=== PATIENT | male | born 1940 | race Caucasian/White ===

== ENCOUNTER 2017-12-31 20:34 | Emergency (ER) | payer MEDICARE, SELFPAY ==
[2017-12-31 20:35] VITALS: BP 144/85; PULSE 80; RESP 20; TEMP 36.7; O2SAT 98; BMI 25.8
[2017-12-31 21:35] LABS: Absolute Lymphocyte Count 1.52 X10^3/ul (0.83-4.51); Absolute Neutrophil Count 12.1 X10^3/uL (2.0-7.7); Basophil# 0.02 X10^3/uL; Basophil% 0.1 % (0-1); Differential Indicated SCAN CRITERIA MET; Eosinophil# 0.09 X10^3/uL; Eosinophils% 0.6 % (0-5); Hematocrit 36.2 % (40-54); Hemoglobin 12.1 g/dl (13.0-16.5); Lymphocyte # 1.52 X10^3/ul (4.0); Lymphocyte % 9.9 % (19-41); Mean Corp Hgb Conc 33.4 g/gl (32-36); Mean Corpuscular Hgb 30.8 pg (27.0-32.0); Mean Corpuscular Volume 92.1 fL (80-94); Mean Platelet Vol. 10.4 fl (6.2-12.0); Monocyte# 1.66 X10^3/uL; Monocyte% 10.8 % (0-10); Neutrophil % 78.3 % (47-70); POSITIVE COUNT NO; POSITIVE DIFFERENTIAL YES; POSITIVE MORPHOLOGY NO; Platelet Count 227 K/mm3 (150-450); RBC Distribution Width CV 14.4 % (11.6-14.6); RBC Distribution Width SD 47.7 fl (35.1-43.9); Red Blood Count 3.93 M/mm3 (4.6-6.2); White Blood Count 15.4 K/mm3 (4.4-11.0)
[2017-12-31 21:49] LABS: International Normalized Ratio 1.2
[2017-12-31] MEDS: 0.9% Normal Saline 1,000 ML 500 ML IV (21:49)
[2017-12-31 21:50] LABS: Partial Thromboplast Time 37.7 Seconds (24.1-36.2)
--- NOTE | 2017-12-31 21:50 | CT_ITS ---
STUDY: CT ABDOMEN AND PELVIS WITHOUT CONTRAST REASON FOR EXAM: Male, 77 years old. Blood in catheter after catheter change RADIATION DOSAGE (If Supplied By Facility): CTDIvol = ( 16.17 ) mGy, DLP = ( 779.70 ) mGycm TECHNIQUE: Transaxial images were obtained from the dome of the diaphragm to the symphysis pubis without oral contrast, and without intravenous contrast. Sagittal and coronal images were reconstructed. Individualized dose optimization techniques were used for this CT. COMPARISON: May 29, 2017. FINDINGS: The visualized lung bases are hyperaerated with interstitial prominence. The visualized portions of the heart are within normal limits. Slightly lobulated contour of the liver. Probable 9 mm hepatic cyst. Cholelithiasis. No significant dilatation of the extrahepatic biliary system. Granulomatous calcifications in the liver and spleen. Normal pancreas. Normal bilateral adrenal glands. Hydronephrosis of the right kidney right hydroureter. Mild right perinephric stranding. No obstructive stone is seen.. Interval removal of right ureteral stent since the previous study. No visualization of the left kidney. Stable hiatal hernia. Normal small intestine. Diverticulosis of the colon. Colonic fecal retention. The appendix is visualized and appears normal. Calcified abdominal aorta. Normal inferior vena cava. Normal retroperitoneum. Distended urinary bladder with intraluminal gas. Prominent prostate measuring 5.1 x 5.5 cm . Focal gas droplet within the prostate may be in the prostatic urethra. There is a partially imaged possible fluid collection and gas at the base of the penis. This requires further evaluation. Normal abdominal wall. Degenerative vertebral changes. CT/Abdomen/Pelvis without Cont IMPRESSION: Probable hepatic cyst. Cholelithiasis. Hiatal hernia. Colonic diverticulosis. Colonic fecal retention. Gas in the urinary bladder. Right hydronephrosis and hydroureter with no obstructive stone. Left nephrectomy. Study prominent prostate. Partially imaged possible fluid collection and gas at the base of the penis requiring further evaluation. Electronically Signed: Ever Ma DO at 22:55 EST Tel [phone], Service support ,
[2017-12-31 22:00] LABS: Anisocytosis RARE; Macrocytosis RARE; Platelet Estimate ADEQUATE (ADEQ)
[2017-12-31 22:22] LABS: Anion Gap 7 (5-15); BUN 24 mg/dL (7-18); BUN/Creat Ratio 17.3 RATIO (10-20); Calcium,Total 8.4 mg/dL (8.5-10.1); Chloride 103 mmol/L (98-107); Creatinine, Serum 1.39 mg/dL (0.70-1.30); EST Glomerular Filtration Rate 53 mL/min (>60); Est Glom Filt Rate - Afr Amer 64 mL/min (>60); Estimated Creatinine Clearance 45.95 ml/min; Glucose 74 mg/dL (74-106); Sodium Level 135 mmol/L (136-145)
[2017-12-31 22:46] LABS: Bacteria 0 SEEN /hpf (None Seen); Mucous, Urine 0 SEEN /hpf (<or=2+); Squamous Epithelial Cells - UA 0 SEEN /hpf (0-5)
--- NOTE | 2017-12-31 22:48 | ED.RN ---
JAXON SABILLON,RN, BLADDER SCANNED PT FOR 860CC OF URINE. THIS NURSE THEN DEFLATED 30CC BALLOON AND JAXON ADVANCED URINARY CATHETER AND BALLOON WAS REINFLATED WITH IMMEDIATE RETURN OF DARK RED URINE WITH ONE THIN CLOT NOTED. PT IMMEDIATELY FELT RELIEF, 880CC OF DARK RED URINE AND PT REPORTED NO PAIN AT THIS TIME. DR. SYED INFORMED OF SAME.
[2017-12-31 22:55] LABS: Glucose, Dipstick Normal (Normal); Ketone-Dipstick Negative (Negative); Leukocyte Esterase-Dipstick 500 /ul (Negative); Nitrite-Dipstick Negative (Negative); Occult Blood-Urine 250 /ul (Negative); Protein-Dipstick 100 mg/dl (Negative); Urine Bilirubin Dipstick Negative (Negative); Urine Clarity Sl. Cloudy (Clear); Urine Urobilinogen Normal (Normal)
[2017-12-31 23:00] VITALS: BP 122/77; PULSE 79; RESP 16; O2SAT 96
[2017-12-31 23:03] LABS: Color, Urine SEE COMMENT BELOW (Yellow)
[2017-12-31 23:04] LABS: Red Blood Cells-Urine 50-100 SEEN /hpf (0-5); White Blood Cells 5-10 SEEN /hpf (0-5)
--- NOTE | 2017-12-31 23:45 | ED.VISSUMM ---
- ER Visit Summary Date of Service: 12/31/17 Chief Complaint: Bladder pain History of Present Illness: The patient is a 77 M with a history of a solitary right kidney and a chronic indwelling Flores catheter. Presents today for pain and bleeding from his catheter. His catheter was changed today by home nurse. He noted pain immediately on placement of the catheter. He has been passing a small amount of blood, but not very much urine. He complains of increasing suprapubic pain. Denies any fever or systemic symptoms. Denies any history of blood thinners. Physical Examination: Vital signs afebrile and otherwise unremarkable. Patient appears uncomfortable but not toxic or in distress. Suprapubic area is tender to palpation. He does have some bleeding noted at the urethral meatus. There is a small amount of bright red blood in the catheter bag and it is otherwise pretty much empty. Test Results: Urinalysis showed blood but no obvious sign of infection. White count 15.4. Heme globin 12.1. Sodium 135, BUN 24, creatinine 1.39. INR 1.2 and PTT 37.7. Culture is pending. CT showed a hepatic cyst, hiatal hernia, cholelithiasis, diverticulosis, gas in the bladder, right hydronephrosis and hydroureter without stone, prominent prostate, and fluid and gas at the base of the penis. Emergency Department Course and Treatment: I was initially concerned that the patient may have an obstruction secondary to a clot. This could have been secondary to traumatic placement of the catheter. I did check labs, urine, and urine culture. I asked the nurse to irrigate the catheter. The nurse flushed and some saline, but did not get a return. He had continued pain. I was concerned for either a large clot or other traumatic complication. CT was ordered. This showed the findings as listed above and fluid/gas at the base of the penis. I believe that the balloon was in the urethra. The nurse was able to deflate the balloon and advanced the catheter. She did get a return of 860 mL's of urine. She inflated the balloon. The patient was much more comfortable. Urine is draining freely without large amounts of bleeding. I did discuss the imaging results and the course with Dr. Cunha was covering for Dr. Swenson. Cultures pending. Patient will be placed on a 1 day course of Keflex. Return for any new or worsening symptoms. No further orders. Treatment Plan: As above Disposition: Discharged Impression: 1. Attention to Flores catheter This note was generated with [employer] dictation software. It may contain incorrect words, spelling, and punctuation that were not noted in review of the chart prior to signing ED Disposition - Plan for ED Patient: Chief Complaint: Flores C/O Referrals: Sherwin Jorgensen MD [Primary Care Provider] -
[2017-12-31] MEDS: Cephalexin 250 MG Capsule 500 MG PO (23:50)
--- NOTE | 2017-12-31 23:50 | ED.DEP ---
ED Disposition - Plan for ED Patient: Chief Complaint: Flores C/O Instructions: Discharge Instructions: Caring for Your Indwelling Urinary Catheter Prescriptions: Cephalexin [Keflex] 500 mg PO Q6 1 Days #4 cap Additional Instructions: Follow up with Dr. Swenson
[2018-01-01 00:48] VITALS: BP 121/87; PULSE 69; RESP 16; O2SAT 97
[2018-01-06 10:51] LABS: Pathologist Review Reviewed
== END 2018-01-01 00:50 | disposition home or self-care (01) ==
PROVIDERS: Emergency Provider Emergency Medicine; Family Provider Internal Medicine; PCP Internal Medicine
DX: T83.83XA Hemorrhage due to genitourinary prosthetic devices, implants and grafts, initial encounter (principal); T83.84XA Pain due to genitourinary prosthetic devices, implants and grafts, initial encounter; R31.9 Hematuria, unspecified; Q60.0 Renal agenesis, unilateral; N13.30 Unspecified hydronephrosis; K76.89 Other specified diseases of liver; K44.9 Diaphragmatic hernia without obstruction or gangrene; K80.20 Calculus of gallbladder without cholecystitis without obstruction; K57.90 Diverticulosis of intestine, part unspecified, without perforation or abscess without bleeding; Z79.899 Other long term (current) drug therapy; Z87.440 Personal history of urinary (tract) infections
CPT/HCPCS: 74176; 80048; 81001; 85025; 85610; 85730; 87077; 87086; 87088; 87186; 96361; 96374; 99283; J7030; A4216

== ENCOUNTER 2018-07-09 19:23 | Inpatient (IN) | payer MEDICARE, SELFPAY ==
[2018-07-09 19:24] VITALS: BP 143/81; PULSE 73; RESP 18; TEMP 37.1; O2SAT 95; BMI 23.3
--- NOTE | 2018-07-09 20:02 | EKG12_ITS ---
Test Reason : FATIGUE Blood Pressure : / mmHG Vent. Rate : 071 BPM Atrial Rate : 071 BPM P-R Int : 220 ms QRS Dur : 104 ms QT Int : 436 ms P-R-T Axes : 031 051 045 degrees QTc Int : 473 ms Sinus rhythm with 1st degree A-V block Low voltage QRS Borderline ECG Confirmed by MARIAN NINO, CEE ([id number]), book or script editor SEAN NAVARRO ([id number]) on 07/12/2018 3:22:54 PM Referred By: MARILOU Confirmed By:CEE FONSECA MD
--- NOTE | 2018-07-09 20:02 | ED.DCSUM_ITS ---
- ER Visit Summary Date of Service: 07/09/18 Chief Complaint: Hallucinations History of Present Illness: The patient is a 78 M presenting with hallucinations. Patient states that he has had hallucinations in the past. Over the past several days he has seen a little girl sitting on the couch. Home health nurse was concerned about possibility of dehydration. He has not been drinking enough fluids. He has a chronic Flores catheter in place. He has a history of multiple UTIs in the past. He denies fever. Denies chest pain or shortness of breath. Denies abdominal pain, nausea, vomiting, diarrhea. Denies other complaints. Physical Examination: Vitals are stable. Patient is afebrile. Alert no acute distress. HEENT exam is unremarkable. Dry mucous membranes Neck is supple. Lungs are clear and equal bilaterally. Heart is regular rate and rhythm. Abdomen is soft nontender nondistended. Extremities are unremarkable. Skin is warm and dry. No focal neurologic deficit. Remainder of exam is unremarkable. Emergency Department Course and Treatment: CBC unremarkable other than hemoglobin 10.4. Chemistries show ceatinine 1.37. Urinalysis shows 25-50 white blood cells. Lactic acid is normal. Urine culture was sent. He was given Rocephin IV. Will discuss with the hospitalist for admission. Disposition: Admission Impression: Delirium secondary to UTI This note was generated with [employer] dictation software. It may contain incorrect words, spelling, and punctuation that were not noted in review of the chart prior to signing ED Disposition - Plan for ED Patient: Chief Complaint: Fatigue Referrals: Sherwin Jorgensen MD [Primary Care Provider] -
--- NOTE | 2018-07-09 20:05 | RAD_ITS ---
STUDY: X-RAY CHEST REASON FOR EXAM: Male, 78 years old. Altered mental status. Hallucinations. TECHNIQUE: Portable chest. COMPARISON: None. FINDINGS: Hyperlucency in the central lungs suggest COPD. The lungs are otherwise clear. There is no demonstrated pleural abnormality. Normal size heart. Normal mediastinum and jacquie. Normal visualized pulmonary arteries. Normal visualized aortic arch and descending thoracic aorta. Normal visualized thoracic spine. Normal visualized ribs, clavicles, and shoulders. There is no demonstrated abnormality of the visualized soft tissue structures of the upper abdomen. RAD/Chest 1 View (Portable) IMPRESSION: 1. No acute process. 2. Question COPD. Electronically Signed: Bev Agosto MD at 20:22 EDT Tel , Service support ,
[2018-07-09 20:18] LABS: Absolute Lymphocyte Count 1.81 X10^3/ul (0.83-4.51); Absolute Neutrophil Count 2.6 X10^3/uL (2.0-7.7); Basophil# 0.01 X10^3/uL; Basophil% 0.2 % (0-1); Eosinophil# 0.11 X10^3/uL; Eosinophils% 2.1 % (0-5); Hematocrit 31.8 % (40-54); Hemoglobin 10.4 g/dl (13.0-16.5); Lymphocyte # 1.81 X10^3/ul (4.0); Lymphocyte % 34.6 % (19-41); Mean Corp Hgb Conc 32.7 g/gl (32-36); Mean Corpuscular Hgb 29.8 pg (27.0-32.0); Mean Corpuscular Volume 91.1 fL (80-94); Mean Platelet Vol. 10.4 fl (6.2-12.0); Monocyte# 0.74 X10^3/uL; Monocyte% 14.1 % (0-10); Neutrophil # 2.56 X10^3/uL (2.7-7.7); Platelet Count 249 K/mm3 (150-450); RBC Distribution Width CV 14.6 % (11.6-14.6); Red Blood Count 3.49 M/mm3 (4.6-6.2); White Blood Count 5.2 K/mm3 (4.4-11.0)
[2018-07-09 20:19] LABS: POSITIVE COUNT NO; POSITIVE DIFFERENTIAL NO; POSITIVE MORPHOLOGY NO
[2018-07-09 20:22] LABS: Mucous, Urine 0 SEEN /hpf (<or=2+); Squamous Epithelial Cells - UA 0 SEEN /hpf (0-5)
[2018-07-09 20:28] LABS: Color, Urine Yellow (Yellow); Glucose, Dipstick Normal (Normal); Ketone-Dipstick Negative (Negative); Leukocyte Esterase-Dipstick 500 /ul (Negative); Nitrite-Dipstick Negative (Negative); Occult Blood-Urine 10 /ul (Negative); Protein-Dipstick Negative (Negative); Urine Bilirubin Dipstick Negative (Negative); Urine Clarity Sl. Cloudy (Clear); Urine Urobilinogen Normal (Normal)
[2018-07-09 20:38] LABS: Bacteria 1+ /hpf (None Seen); White Blood Cells 25-50 SEEN /hpf (0-5)
[2018-07-09 20:39] LABS: Red Blood Cells-Urine 0-5 SEEN /hpf (0-5)
[2018-07-09 20:45] LABS: Anion Gap 9 (5-15); BUN 18 mg/dL (7-18); BUN/Creat Ratio 13.1 RATIO (10-20); Calcium,Total 8.3 mg/dL (8.5-10.1); Chloride 104 mmol/L (98-107); Creatinine, Serum 1.37 mg/dL (0.70-1.30); EST Glomerular Filtration Rate 53 mL/min (>60); Est Glom Filt Rate - Afr Amer 65 mL/min (>60); Estimated Creatinine Clearance 45.88 ml/min; Glucose 96 mg/dL (74-106); Potassium 3.9 mmol/L (3.5-5.1); Sodium Level 140 mmol/L (136-145)
[2018-07-09 20:47] LABS: Lactic Acid 0.9 mmol/L (0.4-2.0)
--- NOTE | 2018-07-09 21:05 | PCM.HP.STD ---
History of Present Illness The patient is a 78 year old M [] Past Medical History Past Medical History (Chronic Problems): Chronic Problems Bladder cancer (Chronic) Ureteral cancer (Chronic) Single kidney (Chronic) Parkinsons disease (Chronic) Allergies oxycodone [From Percocet] Adverse Reaction (Verified 07/09/18 19:26) Other hallucination, increased confusion, per family Home Medications: Ambulatory Orders Medication Instructions Recorded Carbidopa/Levodopa [Sinemet Cr 2 each PO TID 02/04/14 25-100 Tablet] Finasteride [Proscar] 5 mg PO DAILY 05/29/17 Amiodarone HCl [Cordarone] 200 mg PO DAILY 07/11/17 Pantoprazole Sodium [Protonix] 40 mg PO DAILY 07/11/17 Melatonin 3 mg PO QHS 07/09/18 Multivitamin [Multiple Vitamins] 1 each PO DAILY 07/09/18 Surgical History: tonsillectomy, TURP Psychiatric History: No pertinent psych hx Smoking Status: Former smoker - *Family History Maternal History Items: Heart Disease, Hypertension, Stroke Paternal History Items: Heart Disease, Hypertension - Physical Exam Vital Signs Temp Pulse Resp BP Pulse Ox 98.7 F 73 18 143/81 H 95 07/09/18 19:24 07/09/18 19:24 07/09/18 19:24 07/09/18 19:24 07/09/18 19:24 Oxygen Delivery Method Room Air Weight: 73.936 kg Body Mass Index (BMI) 23.3 Laboratory Tests Past 24 Hrs 07/09/18 07/09/18 07/09/18 19:55 19:55 20:15 WBC 5.2 RBC 3.49 L Hgb 10.4 L Hct 31.8 L MCV 91.1 MCH 29.8 MCHC 32.7 RDW 14.6 RDW Differential 49.0 H Plt Count 249 MPV 10.4 Immature Gran % (Auto) 0.000 Neut % (Auto) 49.0 Lymph % (Auto) 34.6 [place] % (Auto) 14.1 H Eos % (Auto) 2.1 Baso % (Auto) 0.2 Absolute Neuts (auto) 2.6 Absolute Lymphs (auto) 1.81 Total Counted Not Reportable Sodium 140 Potassium 3.9 Chloride 104 Carbon Dioxide 27.0 Anion Gap 9 BUN 18 Creatinine 1.37 H Estim Creat Clear Calc 45.88 Est GFR (MDRD) Af Amer 65 Est GFR (MDRD) Non-Af 53 L BUN/Creatinine Ratio 13.1 Glucose 96 Lactic Acid Calcium 8.3 L Urine Color Yellow Urine Clarity Sl. Cloudy Urine pH 7.0 Ur Specific [place] 1.010 Urine Protein Negative Urine Glucose (UA) Normal Urine Ketones Negative Urine Occult Blood 10 H Urine Nitrite Negative Urine Bilirubin Negative Urine Urobilinogen Normal Ur Leukocyte Esterase 500 H Urine RBC 0-5 SEEN Urine WBC 25-50 SEEN Ur Squamous Epith Cells 0 SEEN Urine Bacteria 1+ Urine Mucus 0 SEEN 07/09/18 20:18 WBC RBC Hgb Hct MCV MCH MCHC RDW RDW Differential Plt Count MPV Immature Gran % (Auto) Neut % (Auto) Lymph % (Auto) [place] % (Auto) Eos % (Auto) Baso % (Auto) Absolute Neuts (auto) Absolute Lymphs (auto) Total Counted Sodium Potassium Chloride Carbon Dioxide Anion Gap BUN Creatinine Estim Creat Clear Calc Est GFR (MDRD) Af Amer Est GFR (MDRD) Non-Af BUN/Creatinine Ratio Glucose Lactic Acid 0.9 Calcium Urine Color Urine Clarity Urine pH Ur Specific [place] Urine Protein Urine Glucose (UA) Urine Ketones Urine Occult Blood Urine Nitrite Urine Bilirubin Urine Urobilinogen Ur Leukocyte Esterase Urine RBC Urine WBC Ur Squamous Epith Cells Urine Bacteria Urine Mucus Assessment/Plan All Active Problems S/P TURP (Acute) Sepsis (Acute) Abnormal cardiac enzyme level (Acute) Atrial fibrillation and flutter (Acute) ARF (acute renal failure) (Acute) UTI (urinary tract infection) (Acute)
--- NOTE | 2018-07-09 21:36 | PCM.HP.STD ---
Problem List (1) Acute encephalopathy Status: Acute (2) Acute UTI Status: Acute (3) CKD (chronic kidney disease) stage 3, GFR 30-59 ml/min Status: Chronic (4) BPH (benign prostatic hyperplasia) Status: Chronic Qualifiers: Lower urinary tract symptom presence: unspecified whether lower urinary tract symptoms present Qualified Code(s): N40.0 - Benign prostatic hyperplasia without lower urinary tract symptoms (5) S/P TURP Status: Chronic (6) Atrial fibrillation and flutter Status: Chronic Comment: PAF (7) Bladder cancer Status: Chronic Qualifiers: Bladder location: unspecified site Qualified Code(s): C67.9 - Malignant neoplasm of bladder, unspecified (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 Dx Bladder and Ureteral CA s/p TURP and Ureteral intervention w/ Prior R Ureteral Stent placement per Dr. Swenson at [facility] w/ Chronic Indwelling Bear although now reports that he never had any chemotherapy or further intervention following therefore she is unsure if he truly had cancer, BPH, PAF who presents to the [facility] ED on 07/09/18 with noting history of acute on chronic confusion, agitation, fatigue for the last several days. She notes most recent bear catheter change ~ 1 week prior. In the ED work-up included T 98.7, heart rate 73, BP 143/81, respiratory rate 18, 95% on room air, CBC with WBC 5.2, hemoglobin 10.4, platelet 249 without market shift, BMP with BUN/creatinine 18/1.37, lactic acid 0.9, urinalysis concerning for infection, urine culture pending per ED chest x-ray no acute findings, chronic changes. Past Medical History Past Medical History (Chronic Problems): Chronic Problems CKD (chronic kidney disease) stage 3, GFR 30-59 ml/min (Chronic) BPH (benign prostatic hyperplasia) (Chronic) S/P TURP (Chronic) Atrial fibrillation and flutter (Chronic) PAF Bladder cancer (Chronic) Ureteral cancer (Chronic) Single kidney (Chronic) Parkinsons disease (Chronic) Allergies oxycodone [From Percocet] Adverse Reaction (Verified 07/09/18 19:26) Other hallucination, increased confusion, per family Home Medications: Ambulatory Orders Medication Instructions Recorded Carbidopa/Levodopa [Sinemet Cr 2 each PO TID 02/04/14 25-100 Tablet] Finasteride [Proscar] 5 mg PO DAILY 05/29/17 Amiodarone HCl [Cordarone] 200 mg PO DAILY 07/11/17 Pantoprazole Sodium [Protonix] 40 mg PO DAILY 07/11/17 Melatonin 3 mg PO QHS 07/09/18 Multivitamin [Multiple Vitamins] 1 each PO DAILY 07/09/18 Surgical History: - - Tonsillectomy, TURP with ureteral intervention and possible stent placement with unclear intervention for prior noted bladder and ureteral cancer, partial plate dental intervention. Psychiatric History: No pertinent psych hx Lives: Spouse/ Significant Other Smoking Status: Former smoker - Patient quit tobacco usage approximately 41 years prior to current presentation. Tobacco Use: Non-smoker Alcohol: Rare Drugs: None - *Family History Maternal History Items: Heart Disease, Hypertension, Stroke Paternal History Items: Heart Disease, Hypertension Review of Systems Constitutional: Reports: Anorexia, Malaise, Weakness, Fatigue. Denies: Chills, Fever, Weight Change HEENT: Denies: Head Aches, Sinus Congestion, Sinus Drainage Cardiovascular: Denies: Chest Pain, Palpitations Respiratory: Denies: Cough, Shortness of breath at rest, Sputum production Gastrointestinal: Reports: Abdominal Pain. Denies: Nausea, Vomiting Genitourinary: Reports: - - Bear in place.. Denies: Dysuria Musculoskeletal: Denies: Joint Pain, Joint Tenderness Skin: Denies: Rash, Wounds Neurological: Reports: Balance problems, Confusion, Incoordination. Denies: Focal weakness, Numbness, Tingling Psychiatric: Denies: Anxiety, Depression, Homicidal Ideations, Suicidal Ideations Hematologic/ Lymphatic: Reports: Anemia. Denies: Easy Bruising, Easy Bleeding VTE Information - Inpt Only VTE Present on Admission: No VTE Mechan Device Prophylaxis: SCD's VTE Pharm Prophylaxis ordered?: Yes Patient Problems: Active and Suspected Problems Acute encephalopathy (Acute) Acute UTI (Acute) Subjective: Seated upright in the ED bed, agitated, asking why he needs to be admitted, but otherwise no acute distress. Objective: Physical Examination: General: awake, alert, oriented to self, recent events, mildly agitated, following commands, seated upright in ED bed in no apparent distress. Skin: normal color, turgor, no icterus, cyanosis. HEENT: AT/NC, EOMI, PERRLA, mildly dry MM, no carotid bruits or JVD noted. Lungs: CTA bilaterally, moderate effort, moderate decrease BL bases, no rales, ronchi or wheezing. Heart: Regular rate and rhythm; no gallop, rub audible. Abdomen: soft, mild suprapubic TTP, otherwise abdomen NTTP, ND, normal BS, no HSM. Extremities: no cyanosis, clubbing, or edema. Neurological: patient awake, alert, oriented as noted; cognitive function not baseline intact, does have dementia and worsens at night per report; pupils equally reactive to light and accomodation; cranial nerves II-XII grossly normal, moving all 4 extremities, no focal deficits, strength moderately to severely globally decreased. Psychiatric: affect appears mildly agitated, no acute evidence of depressive or anxiety feelings. - Physical Exam Vital Signs Temp Pulse Resp BP Pulse Ox 98.7 F 73 18 143/81 H 95 07/09/18 19:24 07/09/18 19:24 07/09/18 19:24 07/09/18 19:24 07/09/18 19:24 Oxygen Delivery Method Room Air Weight: 163 lb Body Mass Index (BMI) 23.3 Laboratory Tests Past 24 Hrs 07/09/18 07/09/18 07/09/18 19:55 19:55 20:15 WBC 5.2 RBC 3.49 L Hgb 10.4 L Hct 31.8 L MCV 91.1 MCH 29.8 MCHC 32.7 RDW 14.6 RDW Differential 49.0 H Plt Count 249 MPV 10.4 Immature Gran % (Auto) 0.000 Neut % (Auto) 49.0 Lymph % (Auto) 34.6 [place] % (Auto) 14.1 H Eos % (Auto) 2.1 Baso % (Auto) 0.2 Absolute Neuts (auto) 2.6 Absolute Lymphs (auto) 1.81 Total Counted Not Reportable Sodium 140 Potassium 3.9 Chloride 104 Carbon Dioxide 27.0 Anion Gap 9 BUN 18 Creatinine 1.37 H Estim Creat Clear Calc 45.88 Est GFR (MDRD) Af Amer 65 Est GFR (MDRD) Non-Af 53 L BUN/Creatinine Ratio 13.1 Glucose 96 Lactic Acid Calcium 8.3 L Urine Color Yellow Urine Clarity Sl. Cloudy Urine pH 7.0 Ur Specific [place] 1.010 Urine Protein Negative Urine Glucose (UA) Normal Urine Ketones Negative Urine Occult Blood 10 H Urine Nitrite Negative Urine Bilirubin Negative Urine Urobilinogen Normal Ur Leukocyte Esterase 500 H Urine RBC 0-5 SEEN Urine WBC 25-50 SEEN Ur Squamous Epith Cells 0 SEEN Urine Bacteria 1+ Urine Mucus 0 SEEN 07/09/18 20:18 WBC RBC Hgb Hct MCV MCH MCHC RDW RDW Differential Plt Count MPV Immature Gran % (Auto) Neut % (Auto) Lymph % (Auto) [place] % (Auto) Eos % (Auto) Baso % (Auto) Absolute Neuts (auto) Absolute Lymphs (auto) Total Counted Sodium Potassium Chloride Carbon Dioxide Anion Gap BUN Creatinine Estim Creat Clear Calc Est GFR (MDRD) Af Amer Est GFR (MDRD) Non-Af BUN/Creatinine Ratio Glucose Lactic Acid 0.9 Calcium Urine Color Urine Clarity Urine pH Ur Specific [place] Urine Protein Urine Glucose (UA) Urine Ketones Urine Occult Blood Urine Nitrite Urine Bilirubin Urine Urobilinogen Ur Leukocyte Esterase Urine RBC Urine WBC Ur Squamous Epith Cells Urine Bacteria Urine Mucus Assessment/Plan All Active Problems Acute encephalopathy (Acute) Acute UTI (Acute) Sepsis (Acute) Abnormal cardiac enzyme level (Acute) ARF (acute renal failure) (Acute) UTI (urinary tract infection) (Acute) The patient is a 78 y/o M w/ PMHx: Chronic Normocytic Anemia, 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 Dx Bladder and Ureteral CA s/p TURP and Ureteral intervention w/ Prior R Ureteral Stent placement per Dr. Swenson at [facility] w/ Chronic Indwelling Bear although now reports that he never had any chemotherapy or further intervention following therefore she is unsure if he truly had cancer, BPH, PAF who presents to the [facility] ED on 07/09/18 with noting history of acute on chronic confusion, agitation, fatigue for the last several days. (1) Acute Encephalopathy secondary to Acute Complicated UTI w/ Chronic Indwelling Bear Catheter: Will admit to [facility] upon ED evaluation remarkable, pending UCx, continue IVFs, monitor I/Os, continue IV zosyn given history w/ transition as able pending sensitivities and speciation. If needed may consider ID evaluation. No Bld Cx obtained in the ED. PT, OT, CM consulted for discharge planning. (2) ? History of Bladder and Ureteral CA: Patient w/ noted history TURP and Ureteral intervention w/ Prior R Ureteral Stent placement per Dr. Swenson at [facility] from prior records, now denying any cancer history, will request records from [facility]. (3) Chronic Normocytic Anemia: Admission Hgb 10.4, stable compared to baseline 9-10, MCV 91.1, unclear etiology, Fe panel, ferritin, vitamin B12 and folic acid pending. (4) Chronic Kidney Disease Stage III w/ Congenital Single Kidney: Admission BUN/Cr 18/1.37, baseline renal function appears 1.3, stable, repeat BMP in AM. (5) Parkinson's disease with associated dementia, behavioral disturbance history: Patient with progressing Parkinson's disease, noted worsening dementia, notes behavioral disturbance history primarily in the evenings with mild agitation, maintain on home Sinemet regimen, PT and OT consulted for discharge planning, fall precautions. (6) PAF: EKS w/ SR w/ 1AVB, noted episode only once while inpatient being treated for alternate diagnosis, maintained on amidarone, no recurrent events, follows w/ Cardiology at [facility], not anticoagulated. (7) BPH: Continue home Proscar regimen. Previously was also on flomax. (8) GERD: PPI. (9) Moderate to Severe Protein-Calorie Malnutrition: Evidenced per habitus with muscle and fat loss, nutrition consulted. (10) DVT prophylaxis: SCDs, renally dosed Lovenox. (11) CODE status: Patient has living will in place and is healthcare power of deputy county attorney. Discussed CODE status at length including difference between FULL code, DNR-CCA and DNR-CC status. Following discussions about the differences in these status, requested Full Code status. Advanced Care Planning Face to Face Time: 16 minutes. Code Visit Inpatient E&M: 05558 Init Hosp L3 Procedures: 41508 Advncd Care Plan 30 Min
[2018-07-09] MEDS: Ceftriaxone 1 GM/50 ML BAG IV (21:38)
--- NOTE | 2018-07-09 21:42 | HP.PCM_ITS ---
Problem List (1) Acute encephalopathy Status: Acute (2) Acute UTI Status: Acute (3) CKD (chronic kidney disease) stage 3, GFR 30-59 ml/min Status: Chronic (4) BPH (benign prostatic hyperplasia) Status: Chronic Qualifiers: Lower urinary tract symptom presence: unspecified whether lower urinary tract symptoms present Qualified Code(s): N40.0 - Benign prostatic hyperplasia without lower urinary tract symptoms (5) S/P TURP Status: Chronic (6) Atrial fibrillation and flutter Status: Chronic Comment: PAF (7) Bladder cancer Status: Chronic Qualifiers: Bladder location: unspecified site Qualified Code(s): C67.9 - Malignant neoplasm of bladder, unspecified (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 Dx Bladder and Ureteral CA s/p TURP and Ureteral intervention w/ Prior R Ureteral Stent placement per Dr. Swenson at [facility] w/ Chronic Indwelling Bear although now reports that he never had any chemotherapy or further intervention following therefore she is unsure if he truly had cancer, BPH, PAF who presents to the [facility] ED on 07/09/18 with noting history of acute on chronic confusion, agitation, fatigue for the last several days. She notes most recent bear catheter change ~ 1 week prior. In the ED work-up included T 98.7, heart rate 73, BP 143/81, respiratory rate 18, 95% on room air, CBC with WBC 5.2 , hemoglobin 10.4, platelet 249 without market shift, BMP with BUN/creatinine 18 /1.37, lactic acid 0.9, urinalysis concerning for infection, urine culture pending per ED chest x-ray no acute findings, chronic changes. Past Medical History Past Medical History (Chronic Problems): Chronic Problems CKD (chronic kidney disease) stage 3, GFR 30-59 ml/min (Chronic) BPH (benign prostatic hyperplasia) (Chronic) S/P TURP (Chronic) Atrial fibrillation and flutter (Chronic) PAF Bladder cancer (Chronic) Ureteral cancer (Chronic) Single kidney (Chronic) Parkinsons disease (Chronic) Allergies oxycodone [From Percocet] Adverse Reaction (Verified 07/09/18 19:26) Other hallucination, increased confusion, per family Home Medications: Ambulatory Orders Medication Instructions Recorded Carbidopa/Levodopa [Sinemet Cr 2 each PO TID 02/04/14 25-100 Tablet] Finasteride [Proscar] 5 mg PO DAILY 05/29/17 Amiodarone HCl [Cordarone] 200 mg PO DAILY 07/11/17 Pantoprazole Sodium [Protonix] 40 mg PO DAILY 07/11/17 Melatonin 3 mg PO QHS 07/09/18 Multivitamin [Multiple Vitamins] 1 each PO DAILY 07/09/18 Surgical History: - - Tonsillectomy, TURP with ureteral intervention and possible stent placement with unclear intervention for prior noted bladder and ureteral cancer, partial plate dental intervention. Psychiatric History: No pertinent psych hx Lives: Spouse/ Significant Other Smoking Status: Former smoker - Patient quit tobacco usage approximately 41 years prior to current presentation. Tobacco Use: Non-smoker Alcohol: Rare Drugs: None - *Family History Maternal History Items: Heart Disease, Hypertension, Stroke Paternal History Items: Heart Disease, Hypertension Review of Systems Constitutional: Reports: Anorexia, Malaise, Weakness, Fatigue. Denies: Chills, Fever, Weight Change HEENT: Denies: Head Aches, Sinus Congestion, Sinus Drainage Cardiovascular: Denies: Chest Pain, Palpitations Respiratory: Denies: Cough, Shortness of breath at rest, Sputum production Gastrointestinal: Reports: Abdominal Pain. Denies: Nausea, Vomiting Genitourinary: Reports: - - Bear in place.. Denies: Dysuria Musculoskeletal: Denies: Joint Pain, Joint Tenderness Skin: Denies: Rash, Wounds Neurological: Reports: Balance problems, Confusion, Incoordination. Denies: Focal weakness, Numbness, Tingling Psychiatric: Denies: Anxiety, Depression, Homicidal Ideations, Suicidal Ideations Hematologic/ Lymphatic: Reports: Anemia. Denies: Easy Bruising, Easy Bleeding VTE Information - Inpt Only VTE Present on Admission: No VTE Mechan Device Prophylaxis: SCD's VTE Pharm Prophylaxis ordered?: Yes Patient Problems: Active and Suspected Problems Acute encephalopathy (Acute) Acute UTI (Acute) Subjective: Seated upright in the ED bed, agitated, asking why he needs to be admitted, but otherwise no acute distress. Objective: Physical Examination: General: awake, alert, oriented to self, recent events, mildly agitated, following commands, seated upright in ED bed in no apparent distress. Skin: normal color, turgor, no icterus, cyanosis. HEENT: AT/NC, EOMI, PERRLA, mildly dry MM, no carotid bruits or JVD noted. Lungs: CTA bilaterally, moderate effort, moderate decrease BL bases, no rales, ronchi or wheezing. Heart: Regular rate and rhythm; no gallop, rub audible. Abdomen: soft, mild suprapubic TTP, otherwise abdomen NTTP, ND, normal BS, no HSM. Extremities: no cyanosis, clubbing, or edema. Neurological: patient awake, alert, oriented as noted; cognitive function not baseline intact, does have dementia and worsens at night per report; pupils equally reactive to light and accomodation; cranial nerves II-XII grossly normal, moving all 4 extremities, no focal deficits, strength moderately to severely globally decreased. Psychiatric: affect appears mildly agitated, no acute evidence of depressive or anxiety feelings. - Physical Exam Vital Signs Temp Pulse Resp BP Pulse Ox 98.7 F 73 18 143/81 H 95 07/09/18 19:24 07/09/18 19:24 07/09/18 19:24 07/09/18 19:24 07/09/18 19:24 Oxygen Delivery Method Room Air Weight: 163 lb Body Mass Index (BMI) 23.3 Laboratory Tests Past 24 Hrs 07/09/18 07/09/18 07/09/18 19:55 19:55 20:15 WBC 5.2 RBC 3.49 L Hgb 10.4 L Hct 31.8 L MCV 91.1 MCH 29.8 MCHC 32.7 RDW 14.6 RDW Differential 49.0 H Plt Count 249 MPV 10.4 Immature Gran % (Auto) 0.000 Neut % (Auto) 49.0 Lymph % (Auto) 34.6 [place] % (Auto) 14.1 H Eos % (Auto) 2.1 Baso % (Auto) 0.2 Absolute Neuts (auto) 2.6 Absolute Lymphs (auto) 1.81 Total Counted Not Reportable Sodium 140 Potassium 3.9 Chloride 104 Carbon Dioxide 27.0 Anion Gap 9 BUN 18 Creatinine 1.37 H Estim Creat Clear Calc 45.88 Est GFR (MDRD) Af Amer 65 Est GFR (MDRD) Non-Af 53 L BUN/Creatinine Ratio 13.1 Glucose 96 Lactic Acid Calcium 8.3 L Urine Color Yellow Urine Clarity Sl. Cloudy Urine pH 7.0 Ur Specific [place] 1.010 Urine Protein Negative Urine Glucose (UA) Normal Urine Ketones Negative Urine Occult Blood 10 H Urine Nitrite Negative Urine Bilirubin Negative Urine Urobilinogen Normal Ur Leukocyte Esterase 500 H Urine RBC 0-5 SEEN Urine WBC 25-50 SEEN Ur Squamous Epith Cells 0 SEEN Urine Bacteria 1+ Urine Mucus 0 SEEN 07/09/18 20:18 WBC RBC Hgb Hct MCV MCH MCHC RDW RDW Differential Plt Count MPV Immature Gran % (Auto) Neut % (Auto) Lymph % (Auto) [place] % (Auto) Eos % (Auto) Baso % (Auto) Absolute Neuts (auto) Absolute Lymphs (auto) Total Counted Sodium Potassium Chloride Carbon Dioxide Anion Gap BUN Creatinine Estim Creat Clear Calc Est GFR (MDRD) Af Amer Est GFR (MDRD) Non-Af BUN/Creatinine Ratio Glucose Lactic Acid 0.9 Calcium Urine Color Urine Clarity Urine pH Ur Specific [place] Urine Protein Urine Glucose (UA) Urine Ketones Urine Occult Blood Urine Nitrite Urine Bilirubin Urine Urobilinogen Ur Leukocyte Esterase Urine RBC Urine WBC Ur Squamous Epith Cells Urine Bacteria Urine Mucus Assessment/Plan All Active Problems Acute encephalopathy (Acute) Acute UTI (Acute) Sepsis (Acute) Abnormal cardiac enzyme level (Acute) ARF (acute renal failure) (Acute) UTI (urinary tract infection) (Acute) The patient is a 78 y/o M w/ PMHx: Chronic Normocytic Anemia, 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 Dx Bladder and Ureteral CA s/p TURP and Ureteral intervention w/ Prior R Ureteral Stent placement per Dr. Swenson at [facility] w/ Chronic Indwelling Bear although now reports that he never had any chemotherapy or further intervention following therefore she is unsure if he truly had cancer, BPH, PAF who presents to the [facility] ED on 07/09/18 with noting history of acute on chronic confusion, agitation, fatigue for the last several days. (1) Acute Encephalopathy secondary to Acute Complicated UTI w/ Chronic Indwelling Bear Catheter: Will admit to [facility] upon ED evaluation remarkable, pending UCx, continue IVFs, monitor I/Os, continue IV zosyn given history w/ transition as able pending sensitivities and speciation. If needed may consider ID evaluation. No Bld Cx obtained in the ED. PT, OT, CM consulted for discharge planning. (2) ? History of Bladder and Ureteral CA: Patient w/ noted history TURP and Ureteral intervention w/ Prior R Ureteral Stent placement per Dr. Swenson at [facility] from prior records, now denying any cancer history, will request records from [facility]. (3) Chronic Normocytic Anemia: Admission Hgb 10.4, stable compared to baseline 9 -10, MCV 91.1, unclear etiology, Fe panel, ferritin, vitamin B12 and folic acid pending. (4) Chronic Kidney Disease Stage III w/ Congenital Single Kidney: Admission BUN/ Cr 18/1.37, baseline renal function appears 1.3, stable, repeat BMP in AM. (5) Parkinson's disease with associated dementia, behavioral disturbance history : Patient with progressing Parkinson's disease, noted worsening dementia, notes behavioral disturbance history primarily in the evenings with mild agitation, maintain on home Sinemet regimen, PT and OT consulted for discharge planning, fall precautions. (6) PAF: EKS w/ SR w/ 1AVB, noted episode only once while inpatient being treated for alternate diagnosis, maintained on amidarone, no recurrent events, follows w/ Cardiology at [facility], not anticoagulated. (7) BPH: Continue home Proscar regimen. Previously was also on flomax. (8) GERD: PPI. (9) Moderate to Severe Protein-Calorie Malnutrition: Evidenced per habitus with muscle and fat loss, nutrition consulted. (10) DVT prophylaxis: SCDs, renally dosed Lovenox. (11) CODE status: Patient has living will in place and is healthcare power of trial attorney. Discussed CODE status at length including difference between FULL code, DNR-CCA and DNR-CC status. Following discussions about the differences in these status, requested Full Code status. Advanced Care Planning Face to Face Time: 16 minutes. Code Visit Inpatient E&M: 76576 Init Hosp L3 Procedures: 27722 Advncd Care Plan 30 Min
[2018-07-09 22:18] VITALS: BMI 24.3
[2018-07-09 22:19] VITALS: BP 155/92; PULSE 73; RESP 16; TEMP 37.3; O2SAT 96
[2018-07-09 22:26] VITALS: BMI 24.4
[2018-07-09] MEDS: Piperacil/Tazobactam 3.375 GM/50 ML ML IV (22:54)
[2018-07-09] MEDS: Carbidopa/Levodopa 25/100 Tablet PO (22:54)
[2018-07-10 00:01] LABS: Iron 39 ug/dL (65-175); Iron Binding Capacity,Total 204 ug/dL (250-450); Magnesium 2.1 mg/dL (1.6-2.6); PERCENT IRON SATURATION 19.1 % (15.0-55.0)
[2018-07-10 01:16] LABS: Ferritin 375 ng/mL (26-388)
[2018-07-10 04:14] VITALS: BP 153/96; PULSE 67; RESP 16; TEMP 36.6; O2SAT 97
[2018-07-10] MEDS: 0.9% Normal Saline 1,000 ML 100 ML IV ×2 (04:26→14:00)
[2018-07-10] MEDS: Piperacil/Tazobactam 3.375 GM/50 ML ML IV ×3 (05:12→21:15)
[2018-07-10] MEDS: Carbidopa/Levodopa 25/100 Tablet PO ×3 (06:50→17:07)
--- NOTE | 2018-07-10 07:23 | PCM.PN.HOSP ---
Patient Problems: Active and Suspected Problems Acute encephalopathy (Acute) Acute UTI (Acute) Subjective: Patient notes feeling very improved since day prior, seated upright in the bedside chair, eating breakfast, appetite improved. Family in this morning at a later time and feels that he has improved considerably. Discussed again with patient that he needs to remain until urine culture resulted given history of prior severe cultures requiring only IV antibiotic therapy for treatments. Patient denies fevers, chills, nausea, emesis, abdominal pain, chest pain or dyspnea. Objective: Physical Examination: General: awake, alert, oriented to self, recent events, year and president this morning, following commands, more alert than day prior and interactive, less irritated. Skin: normal color, turgor, no icterus, cyanosis. HEENT: AT/NC, EOMI, PERRLA, improved MMM. Lungs: CTA bilaterally, moderate effort, moderate decrease BL bases, no rales, ronchi or wheezing. Heart: Regular rate and rhythm; no gallop, rub audible. Abdomen: soft, decreased suprapubic TTP, ND, normal BS. Extremities: no cyanosis, clubbing, or edema. Neurological: patient awake, alert, oriented as noted; cognitive function proved, baseline intact per report upon visit later in the morning, does have baseline dementia and this worsens in the evening; pupils equally reactive to light and accomodation; cranial nerves II-XII grossly normal, moving all 4 extremities, no focal deficits, strength moved, moderately globally decreased. Psychiatric: affect appears proved, normalized, less irritable and willing to have evaluations and treatments currently, no acute evidence of depressive or anxiety feelings. Vitals/I&O's: Vital Signs Temp Pulse Resp BP Pulse Ox 97.8 F 67 16 153/96 H 97 07/10/18 04:14 07/10/18 04:14 07/10/18 04:14 07/10/18 04:14 07/10/18 04:14 Oxygen Delivery Method Room Air Weight: 170 lb Body Mass Index (BMI) 24.3 Intake and Output for Last 24 Hours 07/08/18 07/09/18 07/10/18 23:59 23:59 23:59 Intake Total 870 / 870 Output Total 1175 / 1175 750 / 750 Balance -1175 / -1175 120 / 120 Laboratory Results 07/09/18 22:56: Ferritin 375, Folate 25.50 07/09/18 22:56: Magnesium 2.1, Iron 39 L, TIBC 204 L, Iron Saturation 19.1 07/09/18 22:56: Vitamin B12 Pending Current Medications Acetaminophen (Tylenol) 650 mg PO Q6H PRN PRN PRN Reason: Mild Pain (scale 0-3)/T>100.7 Al Hydroxide/Mg Hydroxide (Mylanta Ii) 30 ml PO Q6H PRN PRN PRN Reason: Gastric burning Albuterol Sulfate (Ventolin Aerosols) 2.5 mg INHALATION Q2H PRN PRN PRN Reason: dyspnea, wheezing Amiodarone HCl (Cordarone) 200 mg PO DAILY [facility] Aspirin (Aspirin, Baby) 81 mg PO DAILY@0800 [facility] Carbidopa/Levodopa (Sinemet) 2 tablet PO TIDAC [facility] Last Admin: 07/10/18 06:50 Dose: 2 tablet Enoxaparin Sodium (Lovenox) 40 mg SC DAILY@1000 [facility] Finasteride (Proscar) 5 mg PO DAILY [facility] Sodium Chloride () 1,000 mls @ 100 mls/hr IV .Q10H [facility] Last Admin: 07/10/18 04:26 Dose: 100 mls/hr Piperacillin Sod/Tazobactam Sod (Zosyn) 3.375 gm in 50 mls @ 12.5 mls/hr IV Q8 [facility] Last Admin: 07/10/18 05:12 Dose: 12.5 mls/hr Sodium Chloride () 250 mls @ 15 mls/hr IV .[id number] PRN PRN Reason: SALINE FLUSH Magnesium Hydroxide (Milk Of Magnesia) 30 ml PO DAILY PRN PRN PRN Reason: Constipation Melatonin (Melatonin) 3 mg PO QHS [facility] Multivitamins (Multivitamin) 1 tablet PO DAILY@0800 [facility] Ondansetron HCl (Zofran) 4 mg IV Q8H PRN PRN PRN Reason: NAUSEA Pantoprazole Sodium (Protonix) 40 mg PO DAILY [facility] Promethazine HCl (Phenergan) 12.5 mg IV Q6H PRN PRN PRN Reason: NAUSEA/VOMITING Quetiapine Fumarate (Seroquel) 25 mg PO QHS PRN PRN Reason: AGITATION Sodium Chloride () 5 - 30 ml IV UD PRN PRN Reason: SALINE FLUSH Medical Necessity - Tobacco Use Smoking Status: Former smoker Tobacco Use: Non-smoker Assessment/Plan All Active Problems Acute encephalopathy (Acute) Acute UTI (Acute) Sepsis (Acute) Abnormal cardiac enzyme level (Acute) ARF (acute renal failure) (Acute) UTI (urinary tract infection) (Acute) The patient is a 78 y/o M w/ PMHx: Chronic Normocytic Anemia, 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 Dx Bladder and Ureteral CA s/p TURP and Ureteral intervention w/ Prior R Ureteral Stent placement per Dr. Swenson at [facility] w/ Chronic Indwelling Flores although now reports that he never had any chemotherapy or further intervention following therefore she is unsure if he truly had cancer, BPH, PAF who presents to the [facility] ED on 07/09/18 with noting history of acute on chronic confusion, agitation, fatigue for the last several days. (1) Acute Encephalopathy secondary to Acute Gram Negative Complicated UTI w/ Chronic Indwelling [place] Catheter: Admitted [facility] upon ED evaluation remarkable, pending UCx, continue IVFs, monitor I/Os, continue IV zosyn given history w/ transition as able pending sensitivities and speciation. If needed may consider ID evaluation. No Bld Cx obtained in the ED. PT, OT, CM consulted for discharge planning. (2) ? History of Bladder and Ureteral CA: Patient w/ noted history TURP and Ureteral intervention w/ Prior R Ureteral Stent placement per Dr. Swenson at [facility] from prior records, now denying any cancer history, awaiting request records from [facility]. (3) Chronic Normocytic Anemia: Admission Hgb 10.4, stable compared to baseline 9-10, MCV 91.1, unclear etiology, Fe panel, ferritin and folic acid consistent w/ Fe deficiency/mixed, folic acid within normal range, vitamin B12 pending. Fe supplementation added. (4) Chronic Kidney Disease Stage III w/ Congenital Single Kidney: Admission BUN/Cr 18/1.37, baseline renal function appears 1.3, 07/10/18 BUN/Cr 17/1.32. (5) Parkinson's disease with associated dementia, behavioral disturbance history: Patient with progressing Parkinson's disease, noted worsening dementia, notes behavioral disturbance history primarily in the evenings with mild agitation, maintain on home Sinemet regimen, PT and OT consulted for discharge planning, fall precautions. PRN low dose q HS seroquel. Much improved this AM upon evaluation. (6) PAF: EKS w/ SR w/ 1AVB, noted episode only once while inpatient being treated for alternate diagnosis, maintained on amidarone, no recurrent events, follows w/ Cardiology at [facility], not anticoagulated. (7) BPH: Continue home Proscar regimen. Previously was also on flomax. (8) GERD: PPI. (9) Moderate to Severe Protein-Calorie Malnutrition: Evidenced per habitus with muscle and fat loss, nutrition consulted. (10) DVT prophylaxis: SCDs, renally dosed Lovenox. (11) CODE status: Full Code. Code Visit Inpatient E&M: 87132 Subs Hosp L2
--- NOTE | 2018-07-10 07:28 | PN_ITS ---
Patient Problems: Active and Suspected Problems Acute encephalopathy (Acute) Acute UTI (Acute) Subjective: Patient notes feeling very improved since day prior, seated upright in the bedside chair, eating breakfast, appetite improved. Family in this morning at a later time and feels that he has improved considerably. Discussed again with patient that he needs to remain until urine culture resulted given history of prior severe cultures requiring only IV antibiotic therapy for treatments. Patient denies fevers, chills, nausea, emesis, abdominal pain, chest pain or dyspnea. Objective: Physical Examination: General: awake, alert, oriented to self, recent events, year and president this morning, following commands, more alert than day prior and interactive, less irritated. Skin: normal color, turgor, no icterus, cyanosis. HEENT: AT/NC, EOMI, PERRLA, improved MMM. Lungs: CTA bilaterally, moderate effort, moderate decrease BL bases, no rales, ronchi or wheezing. Heart: Regular rate and rhythm; no gallop, rub audible. Abdomen: soft, decreased suprapubic TTP, ND, normal BS. Extremities: no cyanosis, clubbing, or edema. Neurological: patient awake, alert, oriented as noted; cognitive function proved , baseline intact per report upon visit later in the morning, does have baseline dementia and this worsens in the evening; pupils equally reactive to light and accomodation; cranial nerves II-XII grossly normal, moving all 4 extremities, no focal deficits, strength moved, moderately globally decreased. Psychiatric: affect appears proved, normalized, less irritable and willing to have evaluations and treatments currently, no acute evidence of depressive or anxiety feelings. Vitals/I&O's: Vital Signs Temp Pulse Resp BP Pulse Ox 97.8 F 67 16 153/96 H 97 07/10/18 04:14 07/10/18 04:14 07/10/18 04:14 07/10/18 04:14 07/10/18 04:14 Oxygen Delivery Method Room Air Weight: 170 lb Body Mass Index (BMI) 24.3 Intake and Output for Last 24 Hours 07/08/18 07/09/18 07/10/18 23:59 23:59 23:59 Intake Total 870 / 870 Output Total 1175 / 1175 750 / 750 Balance -1175 / -1175 120 / 120 Laboratory Results 07/09/18 22:56: Ferritin 375, Folate 25.50 07/09/18 22:56: Magnesium 2.1, Iron 39 L, TIBC 204 L, Iron Saturation 19.1 07/09/18 22:56: Vitamin B12 Pending Current Medications Acetaminophen (Tylenol) 650 mg PO Q6H PRN PRN PRN Reason: Mild Pain (scale 0-3)/T>100.7 Al Hydroxide/Mg Hydroxide (Mylanta Ii) 30 ml PO Q6H PRN PRN PRN Reason: Gastric burning Albuterol Sulfate (Ventolin Aerosols) 2.5 mg INHALATION Q2H PRN PRN PRN Reason: dyspnea, wheezing Amiodarone HCl (Cordarone) 200 mg PO DAILY [facility] Aspirin (Aspirin, Baby) 81 mg PO DAILY@0800 [facility] Carbidopa/Levodopa (Sinemet) 2 tablet PO TIDAC [facility] Last Admin: 07/10/18 06:50 Dose: 2 tablet Enoxaparin Sodium (Lovenox) 40 mg SC DAILY@1000 [facility] Finasteride (Proscar) 5 mg PO DAILY [facility] Sodium Chloride () 1,000 mls @ 100 mls/hr IV .Q10H [facility] Last Admin: 07/10/18 04:26 Dose: 100 mls/hr Piperacillin Sod/Tazobactam Sod (Zosyn) 3.375 gm in 50 mls @ 12.5 mls/hr IV Q8 [facility] Last Admin: 07/10/18 05:12 Dose: 12.5 mls/hr Sodium Chloride () 250 mls @ 15 mls/hr IV .[id number] PRN PRN Reason: SALINE FLUSH Magnesium Hydroxide (Milk Of Magnesia) 30 ml PO DAILY PRN PRN PRN Reason: Constipation Melatonin (Melatonin) 3 mg PO QHS [facility] Multivitamins (Multivitamin) 1 tablet PO DAILY@0800 [facility] Ondansetron HCl (Zofran) 4 mg IV Q8H PRN PRN PRN Reason: NAUSEA Pantoprazole Sodium (Protonix) 40 mg PO DAILY [facility] Promethazine HCl (Phenergan) 12.5 mg IV Q6H PRN PRN PRN Reason: NAUSEA/VOMITING Quetiapine Fumarate (Seroquel) 25 mg PO QHS PRN PRN Reason: AGITATION Sodium Chloride () 5 - 30 ml IV UD PRN PRN Reason: SALINE FLUSH Medical Necessity - Tobacco Use Smoking Status: Former smoker Tobacco Use: Non-smoker Assessment/Plan All Active Problems Acute encephalopathy (Acute) Acute UTI (Acute) Sepsis (Acute) Abnormal cardiac enzyme level (Acute) ARF (acute renal failure) (Acute) UTI (urinary tract infection) (Acute) The patient is a 78 y/o M w/ PMHx: Chronic Normocytic Anemia, 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 Dx Bladder and Ureteral CA s/p TURP and Ureteral intervention w/ Prior R Ureteral Stent placement per Dr. Swenson at [facility] w/ Chronic Indwelling Flores although now reports that he never had any chemotherapy or further intervention following therefore she is unsure if he truly had cancer, BPH, PAF who presents to the [facility] ED on 07/09/18 with noting history of acute on chronic confusion, agitation, fatigue for the last several days. (1) Acute Encephalopathy secondary to Acute Gram Negative Complicated UTI w/ Chronic Indwelling Flores Catheter: Admitted to [facility] upon ED evaluation remarkable, pending UCx, continue IVFs, monitor I/Os, continue IV zosyn given history w/ transition as able pending sensitivities and speciation. If needed may consider ID evaluation. No Bld Cx obtained in the ED. PT, OT, CM consulted for discharge planning. (2) ? History of Bladder and Ureteral CA: Patient w/ noted history TURP and Ureteral intervention w/ Prior R Ureteral Stent placement per Dr. Swenson at [facility] from prior records, now denying any cancer history, awaiting request records from [facility]. (3) Chronic Normocytic Anemia: Admission Hgb 10.4, stable compared to baseline 9 -10, MCV 91.1, unclear etiology, Fe panel, ferritin and folic acid consistent w / Fe deficiency/mixed, folic acid within normal range, vitamin B12 pending. Fe supplementation added. (4) Chronic Kidney Disease Stage III w/ Congenital Single Kidney: Admission BUN/ Cr 18/1.37, baseline renal function appears 1.3, 07/10/18 BUN/Cr 17/1.32. (5) Parkinson's disease with associated dementia, behavioral disturbance history : Patient with progressing Parkinson's disease, noted worsening dementia, notes behavioral disturbance history primarily in the evenings with mild agitation, maintain on home Sinemet regimen, PT and OT consulted for discharge planning, fall precautions. PRN low dose q HS seroquel. Much improved this AM upon evaluation. (6) PAF: EKS w/ SR w/ 1AVB, noted episode only once while inpatient being treated for alternate diagnosis, maintained on amidarone, no recurrent events, follows w/ Cardiology at [facility], not anticoagulated. (7) BPH: Continue home Proscar regimen. Previously was also on flomax. (8) GERD: PPI. (9) Moderate to Severe Protein-Calorie Malnutrition: Evidenced per habitus with muscle and fat loss, nutrition consulted. (10) DVT prophylaxis: SCDs, renally dosed Lovenox. (11) CODE status: Full Code. Code Visit Inpatient E&M: 57164 Subs Hosp L2
[2018-07-10 07:42] LABS: Absolute Lymphocyte Count 1.97 X10^3/ul (0.83-4.51); Absolute Neutrophil Count 2.2 X10^3/uL (2.0-7.7); Basophil# 0.02 X10^3/uL; Basophil% 0.4 % (0-1); Eosinophil# 0.16 X10^3/uL; Eosinophils% 3.2 % (0-5); Hematocrit 31.1 % (40-54); Hemoglobin 10.1 g/dl (13.0-16.5); Lymphocyte # 1.97 X10^3/ul (4.0); Mean Corp Hgb Conc 32.5 g/gl (32-36); Mean Corpuscular Hgb 30.1 pg (27.0-32.0); Mean Corpuscular Volume 92.6 fL (80-94); Mean Platelet Vol. 10.5 fl (6.2-12.0); Monocyte# 0.66 X10^3/uL; Monocyte% 13.1 % (0-10); Neutrophil # 2.24 X10^3/uL (2.7-7.7); Neutrophil % 44.3 % (47-70); Platelet Count 225 K/mm3 (150-450); RBC Distribution Width CV 14.8 % (11.6-14.6); Red Blood Count 3.36 M/mm3 (4.6-6.2); White Blood Count 5.1 K/mm3 (4.4-11.0)
[2018-07-10 07:55] LABS: Anion Gap 8 (5-15); BUN 17 mg/dL (7-18); BUN/Creat Ratio 12.9 RATIO (10-20); Calcium,Total 8.4 mg/dL (8.5-10.1); Chloride 109 mmol/L (98-107); Creatinine, Serum 1.32 mg/dL (0.70-1.30); EST Glomerular Filtration Rate 56 mL/min (>60); Est Glom Filt Rate - Afr Amer 67 mL/min (>60); Estimated Creatinine Clearance 47.62 ml/min; Glucose 84 mg/dL (74-106); Potassium 3.8 mmol/L (3.5-5.1); Sodium Level 143 mmol/L (136-145)
[2018-07-10 07:57] LABS: POSITIVE COUNT NO; POSITIVE DIFFERENTIAL NO; POSITIVE MORPHOLOGY NO
[2018-07-10] MEDS: Finasteride 5 MG Tablet PO (09:15)
[2018-07-10] MEDS: Enoxaparin 40 MG/0.4 ML Syringe SC (09:15)
[2018-07-10] MEDS: Amiodarone 200 MG Tablet PO (09:15)
[2018-07-10] MEDS: Aspirin 81 MG TAB.CHEW PO (09:15)
[2018-07-10] MEDS: Pantoprazole Sodium 40 MG Tablet PO (09:15)
[2018-07-10] MEDS: Multivitamins,Therapeutic Tablet 1 TABLET PO (09:15)
[2018-07-10 09:23] VITALS: BP 150/90; PULSE 63; RESP 18; TEMP 36.7; O2SAT 99
[2018-07-10 09:38] VITALS: O2SAT 96
[2018-07-10] MEDS: Ferrous Gluconate 325 MG Tablet PO ×2 (11:14→17:07)
[2018-07-10 14:12] VITALS: BP 104/61; PULSE 64; RESP 18; TEMP 36.9; O2SAT 98
--- NOTE | 2018-07-10 20:03 | CASEMGMT ---
SEE MINI QUINTERO ASSESS LINK: D/C PLAN: HOME W/RESUMPTION OFF [facility] ([facility], AIDE). ADD PT/OT. Intro role to MINI QUINTERO. Pt sitting up in recliner chair. Pt requests RN INGRID call his to answer questions for him, stating, I'm not so good at this stuff. MINI QUINTERO spoke w/, Amberly Beal, via phone. Explained to role of MINI QUINTERO. agreeable to talking with MINI QUINTERO. states she wishes for pt to return home. states that pt has HH services through [facility] and states that he has an aide 2 x/week to assist with bathing and also has a nurse that comes weekly. asked if PT could also have therapy to assist with strengthening. See PT/OT assess. Order placed for resumption of HHC and PT/OT added. states she would also like to get a wheelchair for pt, if possible. denies having any further needs or questions at this time and states does not want/need any further assistance in the home to help in the care of pt. CM to follow for any further discharge planning needs that may occur. Nancy MORROW RN, CM
[2018-07-10 20:14] VITALS: BP 148/89; PULSE 70; RESP 16; TEMP 36.5; O2SAT 98
[2018-07-10] MEDS: MELATONIN 3 MG TABLET PO (21:15)
[2018-07-11] MEDS: 0.9% Normal Saline 1,000 ML 100 ML IV ×3 (00:14→18:48)
[2018-07-11 02:14] VITALS: BP 152/100; PULSE 66; RESP 14; TEMP 36.4; O2SAT 97
[2018-07-11] MEDS: Piperacil/Tazobactam 3.375 GM/50 ML ML IV ×3 (05:55→20:59)
[2018-07-11] MEDS: Carbidopa/Levodopa 25/100 Tablet PO ×3 (05:55→15:12)
[2018-07-11 06:48] LABS: Absolute Lymphocyte Count 1.62 X10^3/ul (0.83-4.51); Absolute Neutrophil Count 3.1 X10^3/uL (2.0-7.7); Basophil# 0.01 X10^3/uL; Basophil% 0.2 % (0-1); Eosinophil# 0.25 X10^3/uL; Eosinophils% 4.4 % (0-5); Hematocrit 33.7 % (40-54); Hemoglobin 10.8 g/dl (13.0-16.5); Lymphocyte # 1.62 X10^3/ul (4.0); Lymphocyte % 28.7 % (19-41); Mean Corpuscular Hgb 30.2 pg (27.0-32.0); Mean Corpuscular Volume 94.1 fL (80-94); Mean Platelet Vol. 10.8 fl (6.2-12.0); Monocyte# 0.69 X10^3/uL; Monocyte% 12.2 % (0-10); Neutrophil # 3.07 X10^3/uL (2.7-7.7); Neutrophil % 54.3 % (47-70); Platelet Count 230 K/mm3 (150-450); RBC Distribution Width CV 14.6 % (11.6-14.6); RBC Distribution Width SD 48.3 fl (35.1-43.9); Red Blood Count 3.58 M/mm3 (4.6-6.2); White Blood Count 5.7 K/mm3 (4.4-11.0)
[2018-07-11 06:51] LABS: POSITIVE COUNT NO; POSITIVE DIFFERENTIAL NO; POSITIVE MORPHOLOGY NO
[2018-07-11 07:04] LABS: Anion Gap 8 (5-15); BUN 19 mg/dL (7-18); BUN/Creat Ratio 14.2 RATIO (10-20); Calcium,Total 8.1 mg/dL (8.5-10.1); Chloride 109 mmol/L (98-107); Creatinine, Serum 1.34 mg/dL (0.70-1.30); EST Glomerular Filtration Rate 55 mL/min (>60); Est Glom Filt Rate - Afr Amer 66 mL/min (>60); Estimated Creatinine Clearance 46.91 ml/min; Glucose 74 mg/dL (74-106); Potassium 3.9 mmol/L (3.5-5.1); Sodium Level 141 mmol/L (136-145)
[2018-07-11] MEDS: Multivitamins,Therapeutic Tablet 1 TABLET PO (07:36)
[2018-07-11] MEDS: Aspirin 81 MG TAB.CHEW PO (07:37)
[2018-07-11] MEDS: Ferrous Gluconate 325 MG Tablet PO ×2 (07:37→16:29)
[2018-07-11 07:53] VITALS: O2SAT 95
--- NOTE | 2018-07-11 08:05 | PCM.PN.HOSP ---
Patient Problems: Active and Suspected Problems Acute encephalopathy (Acute) Acute UTI (Acute) Subjective: Patient with no acute events overnight per self and per nursing report. He continues to have IV antibiotic therapy with pending urine culture. He has been improving with physical and occupational therapy but remains weak and debilitated in addition to tremulous with his underlying Parkinson's disease with family and patient now amenable to [facility] facility placement, requested TCU. Reviewed patient with Occupational Therapy and they agree that this would be a good opportunity for patient given his debility and high fall risk. Patient denies fevers, chills, nausea, emesis, abdominal pain, chest pain or dyspnea. Objective: Physical Examination: General: awake, alert, oriented x > 3, following commands, cheerful, notes feeling improved. Skin: normal color, turgor, no icterus, cyanosis. HEENT: AT/NC, EOMI, PERRLA, MMM. Lungs: CTA bilaterally, moderate effort, moderate decrease BL bases, no rales, ronchi or wheezing. Heart: Regular rate and rhythm; no gallop, rub audible. Abdomen: soft, decreased suprapubic TTP, ND, normal BS, bear in place. Extremities: no cyanosis, clubbing, or edema. Neurological: patient awake, alert, oriented as noted; cognitive function proved, baseline intact per report upon visit later in the morning, does have baseline dementia and this worsens in the evening; pupils equally reactive to light and accomodation; cranial nerves II-XII grossly normal, moving all 4 extremities, no focal deficits, strength improving, moderately to severely globally decreased. Psychiatric: affect appears improved, normalized, no acute evidence of depressive or anxiety feelings. Vitals/I&O's: Vital Signs Temp Pulse Resp BP Pulse Ox 97.5 F L 66 14 152/100 H 97 07/11/18 02:14 07/11/18 02:14 07/11/18 02:14 07/11/18 02:14 07/11/18 02:14 Oxygen Delivery Method Room Air Weight: 169 lb 15.975 oz Body Mass Index (BMI) 24.3 Intake and Output for Last 24 Hours 07/09/18 07/10/18 07/11/18 23:59 23:59 23:59 Intake Total 3592 / 3592 1444.9 / 1444.9 Output Total 1175 / 1175 1380 / 1380 1920 / 1920 Balance -1175 / -1175 2212 / 2212 -475.1 / -475.1 Laboratory Results 07/11/18 05:15: Sodium 141, Potassium 3.9, Chloride 109 H, Carbon Dioxide 24.0, Anion Gap 8, BUN 19 H, Creatinine 1.34 H, Estim Creat Clear Calc 46.91, Est GFR (MDRD) Af Amer 66, Est GFR (MDRD) Non-Af 55 L, BUN/Creatinine Ratio 14.2, Glucose 74, Calcium 8.1 L 07/11/18 05:15: WBC 5.7, RBC 3.58 L, Hgb 10.8 L, Hct 33.7 L, MCV 94.1 H, MCH 30.2, MCHC 32.0, RDW 14.6, RDW Differential 48.3 H, Plt Count 230, MPV 10.8, Immature Gran % (Auto) 0.200, Neut % (Auto) 54.3, Lymph % (Auto) 28.7, [place] % (Auto) 12.2 H, Eos % (Auto) 4.4, Baso % (Auto) 0.2, Absolute Neuts (auto) 3.1, Absolute Lymphs (auto) 1.62, Total Counted Not Reportable Current Medications Acetaminophen (Tylenol) 650 mg PO Q6H PRN PRN PRN Reason: Mild Pain (scale 0-3)/T>100.7 Al Hydroxide/Mg Hydroxide (Mylanta Ii) 30 ml PO Q6H PRN PRN PRN Reason: Gastric burning Albuterol Sulfate (Ventolin Aerosols) 2.5 mg INHALATION Q2H PRN PRN PRN Reason: dyspnea, wheezing Amiodarone HCl (Cordarone) 200 mg PO DAILY [facility] Last Admin: 07/10/18 09:15 Dose: 200 mg Aspirin (Aspirin, Baby) 81 mg PO DAILY@0800 [facility] Last Admin: 07/11/18 07:37 Dose: 81 mg Carbidopa/Levodopa (Sinemet) 2 tablet PO TIDAC [facility] Last Admin: 07/11/18 05:55 Dose: 2 tablet Enoxaparin Sodium (Lovenox) 40 mg SC DAILY@1000 [facility] Last Admin: 07/10/18 09:15 Dose: 40 mg Ferrous Gluconate (Ferrous Gluconate) 325 mg PO BIDCM [facility] Last Admin: 07/11/18 07:37 Dose: 325 mg Finasteride (Proscar) 5 mg PO DAILY [facility] Last Admin: 07/10/18 09:15 Dose: 5 mg Sodium Chloride () 1,000 mls @ 100 mls/hr IV .Q10H [facility] Last Admin: 07/11/18 00:14 Dose: 100 mls/hr Piperacillin Sod/Tazobactam Sod (Zosyn) 3.375 gm in 50 mls @ 12.5 mls/hr IV Q8 [facility] Last Admin: 07/11/18 05:55 Dose: 12.5 mls/hr Sodium Chloride () 250 mls @ 15 mls/hr IV .[id number] PRN PRN Reason: SALINE FLUSH Magnesium Hydroxide (Milk Of Magnesia) 30 ml PO DAILY PRN PRN PRN Reason: Constipation Melatonin (Melatonin) 3 mg PO QHS [facility] Last Admin: 07/10/18 21:15 Dose: 3 mg Multivitamins (Multivitamin) 1 tablet PO DAILY@0800 [facility] Last Admin: 07/11/18 07:36 Dose: 1 tablet Ondansetron HCl (Zofran) 4 mg IV Q8H PRN PRN PRN Reason: NAUSEA Pantoprazole Sodium (Protonix) 40 mg PO DAILY [facility] Last Admin: 07/10/18 09:15 Dose: 40 mg Promethazine HCl (Phenergan) 12.5 mg IV Q6H PRN PRN PRN Reason: NAUSEA/VOMITING Quetiapine Fumarate (Seroquel) 25 mg PO QHS PRN PRN Reason: AGITATION Sodium Chloride () 5 - 30 ml IV UD PRN PRN Reason: SALINE FLUSH Medical Necessity - Tobacco Use Smoking Status: Former smoker Tobacco Use: Non-smoker Assessment/Plan All Active Problems Acute encephalopathy (Acute) Acute UTI (Acute) Sepsis (Acute) Abnormal cardiac enzyme level (Acute) ARF (acute renal failure) (Acute) UTI (urinary tract infection) (Acute) The patient is a 78 y/o M w/ PMHx: Chronic Normocytic Anemia, 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 Dx Bladder and Ureteral CA s/p TURP and Ureteral intervention w/ Prior R Ureteral Stent placement per Dr. Swenson at [facility] w/ Chronic Indwelling Bear although now reports that he never had any chemotherapy or further intervention following therefore she is unsure if he truly had cancer, BPH, PAF who presents to the [facility] ED on 07/09/18 with noting history of acute on chronic confusion, agitation, fatigue for the last several days. (1) Acute Encephalopathy secondary to Acute Gram Negative Complicated UTI w/ Chronic Indwelling Bear Catheter: Admitted to [facility] upon ED evaluation remarkable, pending UCx, continue IVFs, monitor I/Os, continue IV zosyn given history w/ transition as able pending sensitivities and speciation. If needed may consider ID evaluation. No Bld Cx obtained in the ED. PT, OT, CM consulted for discharge planning w/ planned home discharge per discussion w/ patient and family initially, but now following therapies and extent of therapy needs in addition to concern for high fall risks at home family and patient amenable to SNF, specifically requesting TCU of which CM is aware and plan to initiate pre-certification on Thursday. (2) ? History of Bladder and Ureteral CA: Patient w/ noted history TURP and Ureteral intervention w/ Prior R Ureteral Stent placement per Dr. Swenson at [facility] from prior records, now denying any cancer history, awaiting request records from [facility]. (3) Chronic Normocytic Anemia: Admission Hgb 10.4, stable compared to baseline 9-10, MCV 91.1, unclear etiology, Fe panel, ferritin and folic acid consistent w/ Fe deficiency/mixed, folic acid within normal range, vitamin B12 pending. Fe supplementation added. (4) Chronic Kidney Disease Stage III w/ Congenital Single Kidney: Admission BUN/Cr 18/1.37, baseline renal function appears 1.3, 07/11/18 BUN/Cr 19/1.34, stable. (5) Parkinson's disease with associated dementia, behavioral disturbance history: Patient with progressing Parkinson's disease, noted worsening dementia, notes behavioral disturbance history primarily in the evenings with mild agitation, maintain on home Sinemet regimen, PT and OT consulted for discharge planning, fall precautions. PRN low dose q HS seroquel. Much improved this AM upon evaluation. (6) PAF: EKS w/ SR w/ 1AVB, noted episode only once while inpatient being treated for alternate diagnosis, maintained on amidarone, no recurrent events, follows w/ Cardiology at [facility], not anticoagulated. (7) BPH: Continue home Proscar regimen. Previously was also on flomax. (8) GERD: PPI. (9) Moderate to Severe Protein-Calorie Malnutrition: Evidenced per habitus with muscle and fat loss, nutrition consulted. (10) DVT prophylaxis: SCDs, renally dosed Lovenox. (11) CODE status: Full Code. Code Visit Inpatient E&M: 47946 Subs Hosp L2
[2018-07-11 08:14] VITALS: BP 139/79; PULSE 63; RESP 18; TEMP 36.3; O2SAT 98
[2018-07-11] MEDS: Finasteride 5 MG Tablet PO (09:27)
[2018-07-11] MEDS: Pantoprazole Sodium 40 MG Tablet PO (09:27)
[2018-07-11] MEDS: Enoxaparin 40 MG/0.4 ML Syringe SC (09:27)
[2018-07-11] MEDS: Amiodarone 200 MG Tablet PO (09:27)
[2018-07-11 15:10] VITALS: BP 109/74; PULSE 60; RESP 18; TEMP 36.6; O2SAT 98
[2018-07-11] MEDS: 0.9% NaCl IVPB Med Flush (250 mL) 15 ML IV (20:59)
[2018-07-11] MEDS: MELATONIN 3 MG TABLET PO (20:59)
[2018-07-11] MEDS: 0.9% NaCl Peripheral Flush Adult/Peds IV (20:59)
[2018-07-11 21:00] VITALS: BP 155/82; PULSE 65; RESP 16; TEMP 36.7; O2SAT 100
[2018-07-12 02:58] VITALS: BP 163/81; PULSE 69; RESP 18; TEMP 36.6; O2SAT 98
[2018-07-12] MEDS: 0.9% Normal Saline 1,000 ML 100 ML IV ×2 (04:09→13:54)
[2018-07-12] MEDS: Piperacil/Tazobactam 3.375 GM/50 ML ML IV ×3 (05:15→22:14)
[2018-07-12] MEDS: Carbidopa/Levodopa 25/100 Tablet PO ×3 (06:29→17:19)
[2018-07-12 07:00] LABS: Absolute Lymphocyte Count 1.33 X10^3/ul (0.83-4.51); Absolute Neutrophil Count 3.6 X10^3/uL (2.0-7.7); Basophil# 0.02 X10^3/uL; Basophil% 0.3 % (0-1); Eosinophil# 0.26 X10^3/uL; Eosinophils% 4.4 % (0-5); Hematocrit 30.3 % (40-54); Lymphocyte # 1.33 X10^3/ul (4.0); Lymphocyte % 22.5 % (19-41); Mean Corpuscular Hgb 31.2 pg (27.0-32.0); Mean Corpuscular Volume 94.4 fL (80-94); Mean Platelet Vol. 10.8 fl (6.2-12.0); Monocyte% 11.9 % (0-10); Neutrophil # 3.58 X10^3/uL (2.7-7.7); Neutrophil % 60.7 % (47-70); Platelet Count 212 K/mm3 (150-450); RBC Distribution Width CV 14.6 % (11.6-14.6); RBC Distribution Width SD 47.6 fl (35.1-43.9); Red Blood Count 3.21 M/mm3 (4.6-6.2); White Blood Count 5.9 K/mm3 (4.4-11.0)
[2018-07-12 07:04] LABS: POSITIVE COUNT NO; POSITIVE DIFFERENTIAL NO
[2018-07-12 07:05] LABS: POSITIVE MORPHOLOGY NO
[2018-07-12 07:30] LABS: Anion Gap 7 (5-15); BUN 16 mg/dL (7-18); BUN/Creat Ratio 12.4 RATIO (10-20); Calcium,Total 8.1 mg/dL (8.5-10.1); Chloride 109 mmol/L (98-107); Creatinine, Serum 1.29 mg/dL (0.70-1.30); EST Glomerular Filtration Rate 57 mL/min (>60); Est Glom Filt Rate - Afr Amer 69 mL/min (>60); Estimated Creatinine Clearance 48.73 ml/min; Glucose 76 mg/dL (74-106); Potassium 3.9 mmol/L (3.5-5.1); Sodium Level 141 mmol/L (136-145)
[2018-07-12 07:41] VITALS: BP 148/83; PULSE 66; RESP 16; TEMP 36.7; O2SAT 96
[2018-07-12] MEDS: Multivitamins,Therapeutic Tablet 1 TABLET PO (07:53)
[2018-07-12] MEDS: Amiodarone 200 MG Tablet PO (07:54)
[2018-07-12] MEDS: Pantoprazole Sodium 40 MG Tablet PO (07:54)
[2018-07-12] MEDS: Aspirin 81 MG TAB.CHEW PO (07:54)
[2018-07-12] MEDS: Ferrous Gluconate 325 MG Tablet PO ×2 (07:54→17:19)
[2018-07-12 09:48] LABS: Vitamin B12 687 pg/mL (211-911)
[2018-07-12] MEDS: Enoxaparin 40 MG/0.4 ML Syringe SC (11:00)
[2018-07-12] MEDS: Finasteride 5 MG Tablet PO (11:00)
[2018-07-12 13:43] VITALS: BP 106/71; PULSE 64; RESP 16; TEMP 36.7; O2SAT 97
--- NOTE | 2018-07-12 13:48 | PCM.PN.HOSP ---
Patient Problems: Active and Suspected Problems Acute encephalopathy (Acute) Acute UTI (Acute) Subjective: No new issues. Vitals/I&O's: Vital Signs Temp Pulse Resp BP Pulse Ox 36.7 C 66 16 148/83 H 96 07/12/18 07:41 07/12/18 07:41 07/12/18 07:41 07/12/18 07:41 07/12/18 07:41 Oxygen Delivery Method Room Air Weight: 77.11 kg Body Mass Index (BMI) 24.3 Intake and Output for Last 24 Hours 07/10/18 07/11/18 07/12/18 23:59 23:59 23:59 Intake Total 3592 / 3592 4119.9 / 4119.9 1826 / 1826 Output Total 1380 / 1380 3070 / 3070 3600 / 3600 Balance 2212 / 2212 1049.9 / 1049.9 -1774 / -1774 General: Alert, No apparent distress, - - up in chair HEENT: Atraumatic, Normocephalic Oral: Moist Mucosa, No Gingival or Mucosal Lesions/ Ulcerations Neck: No Nodes, Thyroid Normal Size and Texture Lungs: Clear to auscultation, Normal air movement, No rhonchi, No wheeze Cardiovascular: Regular rate, Regular Rhythm, Normal S1, Normal S2, No murmurs Abdomen: Bowel Sounds Present, Soft, Non Tender, Non-Distended, No Hepato-splenomegaly Extremities: No edema, No Calf Tenderness Skin: No rashes, No breakdown Psych/Mental Status: Appropriate, Flat Affect Laboratory Results 07/09/18 22:56: Vitamin B12 687 07/12/18 06:18: Sodium 141, Potassium 3.9, Chloride 109 H, Carbon Dioxide 25.0, Anion Gap 7, BUN 16, Creatinine 1.29, Estim Creat Clear Calc 48.73, Est GFR (MDRD) Af Amer 69, Est GFR (MDRD) Non-Af 57 L, BUN/Creatinine Ratio 12.4, Glucose 76, Calcium 8.1 L 07/12/18 06:18: WBC 5.9, RBC 3.21 L, Hgb 10.0 L, Hct 30.3 L, MCV 94.4 H, MCH 31.2, MCHC 33.0, RDW 14.6, RDW Differential 47.6 H, Plt Count 212, MPV 10.8, Immature Gran % (Auto) 0.200, Neut % (Auto) 60.7, Lymph % (Auto) 22.5, [place] % (Auto) 11.9 H, Eos % (Auto) 4.4, Baso % (Auto) 0.3, Absolute Neuts (auto) 3.6, Absolute Lymphs (auto) 1.33, Total Counted Not Reportable Current Medications Acetaminophen (Tylenol) 650 mg PO Q6H PRN PRN PRN Reason: Mild Pain (scale 0-3)/T>100.7 Al Hydroxide/Mg Hydroxide (Mylanta Ii) 30 ml PO Q6H PRN PRN PRN Reason: Gastric burning Albuterol Sulfate (Ventolin Aerosols) 2.5 mg INHALATION Q2H PRN PRN PRN Reason: dyspnea, wheezing Amiodarone HCl (Cordarone) 200 mg PO DAILY [facility] Last Admin: 07/12/18 07:54 Dose: 200 mg Aspirin (Aspirin, Baby) 81 mg PO DAILY@0800 [facility] Last Admin: 07/12/18 07:54 Dose: 81 mg Carbidopa/Levodopa (Sinemet) 2 tablet PO TIDAC [facility] Last Admin: 07/12/18 11:01 Dose: 2 tablet Enoxaparin Sodium (Lovenox) 40 mg SC DAILY@1000 [facility] Last Admin: 07/12/18 11:00 Dose: 40 mg Ferrous Gluconate (Ferrous Gluconate) 325 mg PO BIDCM [facility] Last Admin: 07/12/18 07:54 Dose: 325 mg Finasteride (Proscar) 5 mg PO DAILY [facility] Last Admin: 07/12/18 11:00 Dose: 5 mg Sodium Chloride () 1,000 mls @ 100 mls/hr IV .Q10H [facility] Last Admin: 07/12/18 04:09 Dose: 100 mls/hr Piperacillin Sod/Tazobactam Sod (Zosyn) 3.375 gm in 50 mls @ 12.5 mls/hr IV Q8 [facility] Last Admin: 07/12/18 05:15 Dose: 12.5 mls/hr Sodium Chloride () 250 mls @ 15 mls/hr IV .[id number] PRN PRN Reason: SALINE FLUSH Last Admin: 07/11/18 20:59 Dose: 15 mls/hr Magnesium Hydroxide (Milk Of Magnesia) 30 ml PO DAILY PRN PRN PRN Reason: Constipation Melatonin (Melatonin) 3 mg PO QHS [facility] Last Admin: 07/11/18 20:59 Dose: 3 mg Multivitamins (Multivitamin) 1 tablet PO DAILY@0800 [facility] Last Admin: 07/12/18 07:53 Dose: 1 tablet Ondansetron HCl (Zofran) 4 mg IV Q8H PRN PRN PRN Reason: NAUSEA Pantoprazole Sodium (Protonix) 40 mg PO DAILY [facility] Last Admin: 07/12/18 07:54 Dose: 40 mg Promethazine HCl (Phenergan) 12.5 mg IV Q6H PRN PRN PRN Reason: NAUSEA/VOMITING Quetiapine Fumarate (Seroquel) 25 mg PO QHS PRN PRN Reason: AGITATION Sodium Chloride () 5 - 30 ml IV UD PRN PRN Reason: SALINE FLUSH Last Admin: 07/11/18 20:59 Dose: 10 ml Medical Necessity - Tobacco Use Smoking Status: Former smoker Tobacco Use: Non-smoker Assessment/Plan All Active Problems Acute encephalopathy (Acute) Acute UTI (Acute) Sepsis (Acute) Abnormal cardiac enzyme level (Acute) ARF (acute renal failure) (Acute) UTI (urinary tract infection) (Acute) 1. UTI +Enterococcus faecalis and GNR on Zosyn deescalate based on final cultures Catheter-associated catheter changed during this admission 2. Metabolic encephalopathy 2/2 UTI and PD resolved avoid potentiating medications 3. BPH chronic bear d/t incontinence (per the patient and )--?Overflow Has not seen his urologist in ~2 years. Of note, was instructed to do during his hospitalization in July 2017 Dr. Swenson in [place] is his urologist, advised to follow up with him Question if he needs a SPC to help mitigate frequent UTIs. 4. parkinson's disease complicates care 5. Debility HHC v SNF upon discharge 6. DVT proph: LMWH Greater than 35 minutes of which greater than 50% of the time was counseling the patient and about catheters, urology follow up, and CAUTIs. Code Visit Inpatient E&M: 54115 [facility] Hosp L3
--- NOTE | 2018-07-12 13:57 | PN_ITS ---
Patient Problems: Active and Suspected Problems Acute encephalopathy (Acute) Acute UTI (Acute) Subjective: No new issues. Vitals/I&O's: Vital Signs Temp Pulse Resp BP Pulse Ox 36.7 C 66 16 148/83 H 96 07/12/18 07:41 07/12/18 07:41 07/12/18 07:41 07/12/18 07:41 07/12/18 07:41 Oxygen Delivery Method Room Air Weight: 77.11 kg Body Mass Index (BMI) 24.3 Intake and Output for Last 24 Hours 07/10/18 07/11/18 07/12/18 23:59 23:59 23:59 Intake Total 3592 / 3592 4119.9 / 4119.9 1826 / 1826 Output Total 1380 / 1380 3070 / 3070 3600 / 3600 Balance 2212 / 2212 1049.9 / 1049.9 -1774 / -1774 General: Alert, No apparent distress, - - up in chair HEENT: Atraumatic, Normocephalic Oral: Moist Mucosa, No Gingival or Mucosal Lesions/ Ulcerations Neck: No Nodes, Thyroid Normal Size and Texture Lungs: Clear to auscultation, Normal air movement, No rhonchi, No wheeze Cardiovascular: Regular rate, Regular Rhythm, Normal S1, Normal S2, No murmurs Abdomen: Bowel Sounds Present, Soft, Non Tender, Non-Distended, No Hepato- splenomegaly Extremities: No edema, No Calf Tenderness Skin: No rashes, No breakdown Psych/Mental Status: Appropriate, Flat Affect Laboratory Results 07/09/18 22:56: Vitamin B12 687 07/12/18 06:18: Sodium 141, Potassium 3.9, Chloride 109 H, Carbon Dioxide 25.0, Anion Gap 7, BUN 16, Creatinine 1.29, Estim Creat Clear Calc 48.73, Est GFR ( MDRD) Af Amer 69, Est GFR (MDRD) Non-Af 57 L, BUN/Creatinine Ratio 12.4, Glucose 76, Calcium 8.1 L 07/12/18 06:18: WBC 5.9, RBC 3.21 L, Hgb 10.0 L, Hct 30.3 L, MCV 94.4 H, MCH 31.2, MCHC 33.0, RDW 14.6, RDW Differential 47.6 H, Plt Count 212, MPV 10.8, Immature Gran % (Auto) 0.200, Neut % (Auto) 60.7, Lymph % (Auto) 22.5, [place] % ( Auto) 11.9 H, Eos % (Auto) 4.4, Baso % (Auto) 0.3, Absolute Neuts (auto) 3.6, Absolute Lymphs (auto) 1.33, Total Counted Not Reportable Current Medications Acetaminophen (Tylenol) 650 mg PO Q6H PRN PRN PRN Reason: Mild Pain (scale 0-3)/T>100.7 Al Hydroxide/Mg Hydroxide (Mylanta Ii) 30 ml PO Q6H PRN PRN PRN Reason: Gastric burning Albuterol Sulfate (Ventolin Aerosols) 2.5 mg INHALATION Q2H PRN PRN PRN Reason: dyspnea, wheezing Amiodarone HCl (Cordarone) 200 mg PO DAILY [facility] Last Admin: 07/12/18 07:54 Dose: 200 mg Aspirin (Aspirin, Baby) 81 mg PO DAILY@0800 [facility] Last Admin: 07/12/18 07:54 Dose: 81 mg Carbidopa/Levodopa (Sinemet) 2 tablet PO TIDAC [facility] Last Admin: 07/12/18 11:01 Dose: 2 tablet Enoxaparin Sodium (Lovenox) 40 mg SC DAILY@1000 [facility] Last Admin: 07/12/18 11:00 Dose: 40 mg Ferrous Gluconate (Ferrous Gluconate) 325 mg PO BIDCM [facility] Last Admin: 07/12/18 07:54 Dose: 325 mg Finasteride (Proscar) 5 mg PO DAILY [facility] Last Admin: 07/12/18 11:00 Dose: 5 mg Sodium Chloride () 1,000 mls @ 100 mls/hr IV .Q10H [facility] Last Admin: 07/12/18 04:09 Dose: 100 mls/hr Piperacillin Sod/Tazobactam Sod (Zosyn) 3.375 gm in 50 mls @ 12.5 mls/hr IV Q8 [facility] Last Admin: 07/12/18 05:15 Dose: 12.5 mls/hr Sodium Chloride () 250 mls @ 15 mls/hr IV .[id number] PRN PRN Reason: SALINE FLUSH Last Admin: 07/11/18 20:59 Dose: 15 mls/hr Magnesium Hydroxide (Milk Of Magnesia) 30 ml PO DAILY PRN PRN PRN Reason: Constipation Melatonin (Melatonin) 3 mg PO QHS [facility] Last Admin: 07/11/18 20:59 Dose: 3 mg Multivitamins (Multivitamin) 1 tablet PO DAILY@0800 [facility] Last Admin: 07/12/18 07:53 Dose: 1 tablet Ondansetron HCl (Zofran) 4 mg IV Q8H PRN PRN PRN Reason: NAUSEA Pantoprazole Sodium (Protonix) 40 mg PO DAILY [facility] Last Admin: 07/12/18 07:54 Dose: 40 mg Promethazine HCl (Phenergan) 12.5 mg IV Q6H PRN PRN PRN Reason: NAUSEA/VOMITING Quetiapine Fumarate (Seroquel) 25 mg PO QHS PRN PRN Reason: AGITATION Sodium Chloride () 5 - 30 ml IV UD PRN PRN Reason: SALINE FLUSH Last Admin: 07/11/18 20:59 Dose: 10 ml Medical Necessity - Tobacco Use Smoking Status: Former smoker Tobacco Use: Non-smoker Assessment/Plan All Active Problems Acute encephalopathy (Acute) Acute UTI (Acute) Sepsis (Acute) Abnormal cardiac enzyme level (Acute) ARF (acute renal failure) (Acute) UTI (urinary tract infection) (Acute) 1. UTI * +Enterococcus faecalis and GNR * on Zosyn * deescalate based on final cultures * Catheter-associated * catheter changed during this admission 2. Metabolic encephalopathy * 2/2 UTI and PD * resolved * avoid potentiating medications 3. BPH * chronic bear d/t incontinence (per the patient and )--?Overflow * Has not seen his urologist in ~2 years. Of note, was instructed to do during his hospitalization in July 2017 * Dr. Swenson in [place] is his urologist, advised to follow up with him * Question if he needs a SPC to help mitigate frequent UTIs. 4. parkinson's disease * complicates care 5. Debility * HHC v SNF upon discharge 6. DVT proph: LMWH Greater than 35 minutes of which greater than 50% of the time was counseling the patient and about catheters, urology follow up, and CAUTIs. Code Visit Inpatient E&M: [id number] [facility] Hosp L3
--- NOTE | 2018-07-12 15:56 | CHAPLAIN ---
Type of Pastoral Visit _x__ Initial Visit ___ Follow-up Visit ___ On-call Visit ___ General Patient Visit ___ Spiritual Assessment ___ Family Conference ___ Bereavement ___ Rapid Response ___ Code Blue ___ Other (describe below) Pastoral Care Referral From ___ Patient _x__ Family ___ Nurse ___ Physician ___ Content Assistant ___ Director Of Group Counseling Program ___ Other (describe below) Sacrament/Intervention _x__ Active listening ___ Anointing ___ Zoroastrian ___ Bereavement ___ Communion _x__ Tricia exploration ___ ___ Life review _x__ Prayer ___ Reconciliation ___ Sacrament of Sick _x__ Supportive presence ___ Wedding ___ Other (describe below) Pastoral Comments spouse of patient is with him in the room; spouse does almost all of the talking; pt is described by as being very mixed up and seeing things; pt just sat in chair while the spouse talked about their lives, her tricia and the patient's tolerance of tricia; spouse asked for prayer support and acknowledged the importance to her of someone of tricia to talk with; prayer given
[2018-07-12 16:30] VITALS: O2SAT 96
--- NOTE | 2018-07-12 17:24 | CASEMGMT ---
Social Work Note SW spent much time with pt and pt's Amberly Beal informing them that [facility]'t in network with pt's insurance, per [place]. SW provided pt's with list of in network facilities and Medicare Ratings for each facility. Amberly Beal states that she would like a referral sent to both [facility] and [facility] and that she would like pt in a private room and by a window. SW explained referral process and that this worker will fax referrals and update pt and Amberly Beal tomorrow with any updates. Pt and Amberly Beal states understanding. SW faxed referrals to [facility] and [facility]. SW informed [facility] and [facility] to let this worker know if they are able to accept but not to start pre-cert yet. SW waiting to hear back from [facility] and [facility]. Plan: [facility] vs. [facility] pending acceptance and pre-cert Mary Maher CORPORATE SAFETY COORDINATOR, SCIENCE WRITER
[2018-07-12 21:59] VITALS: BP 141/88; PULSE 63; RESP 16; TEMP 36.8; O2SAT 96
[2018-07-12] MEDS: MELATONIN 3 MG TABLET PO (22:14)
[2018-07-12] MEDS: QUEtiapine 25 MG Tablet PO (22:14)
[2018-07-13] MEDS: 0.9% Normal Saline 1,000 ML 100 ML IV ×2 (00:02→10:08)
[2018-07-13 02:20] VITALS: BP 161/95; PULSE 69; RESP 18; TEMP 36.8; O2SAT 95
[2018-07-13] MEDS: Piperacil/Tazobactam 3.375 GM/50 ML ML IV ×2 (05:14→14:41)
[2018-07-13] MEDS: Carbidopa/Levodopa 25/100 Tablet PO ×3 (06:14→16:59)
[2018-07-13 08:12] LABS: Absolute Lymphocyte Count 1.53 X10^3/ul (0.83-4.51); Absolute Neutrophil Count 2.8 X10^3/uL (2.0-7.7); Basophil# 0.02 X10^3/uL; Basophil% 0.4 % (0-1); Eosinophil# 0.31 X10^3/uL; Eosinophils% 5.9 % (0-5); Hematocrit 32.1 % (40-54); Hemoglobin 10.2 g/dl (13.0-16.5); Lymphocyte # 1.53 X10^3/ul (4.0); Lymphocyte % 29.1 % (19-41); Mean Corp Hgb Conc 31.8 g/gl (32-36); Mean Corpuscular Hgb 29.8 pg (27.0-32.0); Mean Corpuscular Volume 93.9 fL (80-94); Mean Platelet Vol. 10.4 fl (6.2-12.0); Monocyte# 0.62 X10^3/uL; Monocyte% 11.8 % (0-10); Neutrophil # 2.78 X10^3/uL (2.7-7.7); Neutrophil % 52.8 % (47-70); Platelet Count 211 K/mm3 (150-450); RBC Distribution Width CV 15.1 % (11.6-14.6); RBC Distribution Width SD 50.7 fl (35.1-43.9); Red Blood Count 3.42 M/mm3 (4.6-6.2); White Blood Count 5.3 K/mm3 (4.4-11.0)
[2018-07-13 08:14] LABS: POSITIVE COUNT NO; POSITIVE DIFFERENTIAL NO; POSITIVE MORPHOLOGY NO
[2018-07-13 08:20] LABS: Anion Gap 8 (5-15); BUN 16 mg/dL (7-18); BUN/Creat Ratio 12.1 RATIO (10-20); Calcium,Total 8.3 mg/dL (8.5-10.1); Chloride 110 mmol/L (98-107); Creatinine, Serum 1.32 mg/dL (0.70-1.30); EST Glomerular Filtration Rate 56 mL/min (>60); Est Glom Filt Rate - Afr Amer 67 mL/min (>60); Estimated Creatinine Clearance 47.62 ml/min; Glucose 73 mg/dL (74-106); Potassium 4.1 mmol/L (3.5-5.1); Sodium Level 144 mmol/L (136-145)
[2018-07-13 08:46] VITALS: BP 137/76; PULSE 64; RESP 16; TEMP 36.8; O2SAT 95
[2018-07-13] MEDS: 0.9% NaCl IVPB Med Flush (250 mL) 15 ML IV (08:50)
[2018-07-13] MEDS: Ferrous Gluconate 325 MG Tablet PO ×2 (08:52→16:59)
[2018-07-13] MEDS: Aspirin 81 MG TAB.CHEW PO (08:52)
[2018-07-13] MEDS: Multivitamins,Therapeutic Tablet 1 TABLET PO (08:52)
[2018-07-13] MEDS: Enoxaparin 40 MG/0.4 ML Syringe SC (10:40)
[2018-07-13] MEDS: Pantoprazole Sodium 40 MG Tablet PO (10:40)
[2018-07-13] MEDS: Amiodarone 200 MG Tablet PO (10:40)
[2018-07-13] MEDS: Finasteride 5 MG Tablet PO (10:40)
--- NOTE | 2018-07-13 14:27 | PCA ---
Got medical records for patient from [facility]
[2018-07-13 14:46] VITALS: BP 95/51; PULSE 65; RESP 18; TEMP 36.7; O2SAT 96
--- NOTE | 2018-07-13 14:49 | PCM.PN.HOSP ---
Patient Problems: Active and Suspected Problems Acute encephalopathy (Acute) Acute UTI (Acute) Subjective: Ate well yesterday. Not so much today. Vitals/I&O's: Vital Signs Temp Pulse Resp BP Pulse Ox 36.7 C 65 18 95/51 L 96 07/13/18 14:46 07/13/18 14:46 07/13/18 14:46 07/13/18 14:46 07/13/18 14:46 Oxygen Delivery Method Room Air Weight: 77.11 kg Body Mass Index (BMI) 24.3 Intake and Output for Last 24 Hours 07/11/18 07/12/18 07/13/18 23:59 23:59 23:59 Intake Total 4119.9 / 4119.9 3940 / 3940 4394 / 4394 Output Total 3070 / 3070 4050 / 4050 3350 / 3350 Balance 1049.9 / 1049.9 -110 / -110 1044 / 1044 General: Alert, No apparent distress HEENT: Atraumatic, Normocephalic Oral: Moist Mucosa, No Gingival or Mucosal Lesions/ Ulcerations Neck: No Nodes, Thyroid Normal Size and Texture Lungs: Clear to auscultation, Normal air movement, No rhonchi, No wheeze Cardiovascular: Regular rate, Regular Rhythm, Normal S1, Normal S2, No murmurs Abdomen: Bowel Sounds Present, Soft, Non Tender, Non-Distended, No Hepato-splenomegaly Extremities: No edema, No Calf Tenderness Psych/Mental Status: Appropriate, Flat Affect Laboratory Results 07/13/18 07:40: WBC 5.3, RBC 3.42 L, Hgb 10.2 L, Hct 32.1 L, MCV 93.9, MCH 29.8, MCHC 31.8 L, RDW 15.1 H, RDW Differential 50.7 H, Plt Count 211, MPV 10.4, Immature Gran % (Auto) 0.000, Neut % (Auto) 52.8, Lymph % (Auto) 29.1, [place] % (Auto) 11.8 H, Eos % (Auto) 5.9 H, Baso % (Auto) 0.4, Absolute Neuts (auto) 2.8, Absolute Lymphs (auto) 1.53, Total Counted Not Reportable 07/13/18 07:40: Sodium 144, Potassium 4.1, Chloride 110 H, Carbon Dioxide 26.0, Anion Gap 8, BUN 16, Creatinine 1.32 H, Estim Creat Clear Calc 47.62, Est GFR (MDRD) Af Amer 67, Est GFR (MDRD) Non-Af 56 L, BUN/Creatinine Ratio 12.1, Glucose 73 L, Calcium 8.3 L Current Medications Acetaminophen (Tylenol) 650 mg PO Q6H PRN PRN PRN Reason: Mild Pain (scale 0-3)/T>100.7 Al Hydroxide/Mg Hydroxide (Mylanta Ii) 30 ml PO Q6H PRN PRN PRN Reason: Gastric burning Albuterol Sulfate (Ventolin Aerosols) 2.5 mg INHALATION Q2H PRN PRN PRN Reason: dyspnea, wheezing Amiodarone HCl (Cordarone) 200 mg PO DAILY [facility] Last Admin: 07/13/18 10:40 Dose: 200 mg Aspirin (Aspirin, Baby) 81 mg PO DAILY@0800 [facility] Last Admin: 07/13/18 08:52 Dose: 81 mg Carbidopa/Levodopa (Sinemet) 2 tablet PO TIDAC [facility] Last Admin: 07/13/18 10:41 Dose: 2 tablet Enoxaparin Sodium (Lovenox) 40 mg SC DAILY@1000 [facility] Last Admin: 07/13/18 10:40 Dose: 40 mg Ferrous Gluconate (Ferrous Gluconate) 325 mg PO BIDCM [facility] Last Admin: 07/13/18 08:52 Dose: 325 mg Finasteride (Proscar) 5 mg PO DAILY [facility] Last Admin: 07/13/18 10:40 Dose: 5 mg Piperacillin Sod/Tazobactam Sod (Zosyn) 3.375 gm in 50 mls @ 12.5 mls/hr IV Q8 [facility] Last Admin: 07/13/18 14:41 Dose: 12.5 mls/hr Sodium Chloride () 250 mls @ 15 mls/hr IV .[id number] PRN PRN Reason: SALINE FLUSH Last Admin: 07/13/18 08:50 Dose: 15 mls/hr Magnesium Hydroxide (Milk Of Magnesia) 30 ml PO DAILY PRN PRN PRN Reason: Constipation Melatonin (Melatonin) 3 mg PO QHS [facility] Last Admin: 07/12/18 22:14 Dose: 3 mg Multivitamins (Multivitamin) 1 tablet PO DAILY@0800 [facility] Last Admin: 07/13/18 08:52 Dose: 1 tablet Ondansetron HCl (Zofran) 4 mg IV Q8H PRN PRN PRN Reason: NAUSEA Pantoprazole Sodium (Protonix) 40 mg PO DAILY [facility] Last Admin: 07/13/18 10:40 Dose: 40 mg Promethazine HCl (Phenergan) 12.5 mg IV Q6H PRN PRN PRN Reason: NAUSEA/VOMITING Quetiapine Fumarate (Seroquel) 25 mg PO QHS PRN PRN Reason: AGITATION Last Admin: 07/12/18 22:14 Dose: 25 mg Sodium Chloride () 5 - 30 ml IV UD PRN PRN Reason: SALINE FLUSH Last Admin: 07/11/18 20:59 Dose: 10 ml Medical Necessity - Tobacco Use Smoking Status: Former smoker Tobacco Use: Non-smoker Assessment/Plan All Active Problems Acute encephalopathy (Acute) Acute UTI (Acute) Sepsis (Acute) Abnormal cardiac enzyme level (Acute) ARF (acute renal failure) (Acute) UTI (urinary tract infection) (Acute) 1. UTI +Enterococcus faecalis and GNR on Zosyn, change to amoxicillin deescalate based on final cultures Catheter-associated catheter changed during this admission 2. Metabolic encephalopathy 2/2 UTI and PD resolved avoid potentiating medications 3. BPH chronic bear d/t incontinence (per the patient and )--?Overflow Has not seen his urologist in ~2 years. Of note, was instructed to do during his hospitalization in [place] 2017 Dr. Messi [place] is his urologist, advised to follow up with him Question if he needs a SPC to help mitigate frequent UTIs. 4. parkinson's disease complicates care 5. Debility SNF upon discharge, will not be able to due to precertification until 07/14 6. DVT proph: LMWH Code Visit Inpatient E&M: 19127 [facility] Hosp L2
--- NOTE | 2018-07-13 18:21 | CASEMGMT ---
Social Work Note SW received message from Heather at [facility] that she is able to accept pt and will submit for pre-cert. SW updated Pt and pt's Amberly Beal of this. SW spent much time explaining to Amberly Beal that this worker sent both referrals to places, per her wishes, and [facility] was the first facility to inform this worker that they are able to accept pt and will submit for pre-cert. SW discussed with Amberly Beal Medicare Scoring for facilities and Amberly Beal is agreeable to [facility] pending pre-cert. SW explained that [facility] is the facility that pt will go to pending pre-cert and there won't be anymore going back and forth between SNF as it is important to get facility and stay with facility to get pre-cert. Amberly Beal states understanding, denied additional needs or concerns at this time. SW provided Amberly Beal with [facility] information packet and a calendar of events at [facility]. SW informed that pt's Amberly Beal is requesting to speak to this worker again. SW in to speak with pt and pt's . Amberly Beal states that she spoke with their county extension agent who informed them that pt may not be able to handle [facility] and that they had a bad experience at [facility] and pt shouldn't go there. SW explained that pre-cert has already been submitted since this morning and it can't really be stopped. SW explained that if this worker stopped pre-cert then pt may get denied by insurance. SW explained that no two people have the same experiences at SNF and that [facility] may be a good fit for pt. SW explained that if pt goes to [facility] and is unhappy there then pt can move to [facility] from [facility]. Amberly Beal states understanding. SW explained that pre-cert will have to be obtained before pt can discharge to SNF. Plan: [facility] pending pre-cert Mary Maher INTERNATIONAL STUDENT ADVISOR, SHOE TURNER
[2018-07-13 21:10] VITALS: BP 157/89; PULSE 66; RESP 18; TEMP 37.4; O2SAT 96
[2018-07-13] MEDS: MELATONIN 3 MG TABLET PO (21:19)
[2018-07-13] MEDS: QUEtiapine 25 MG Tablet PO (21:19)
[2018-07-13] MEDS: AMOXICILLIN 500 MG CAPSULE PO (21:19)
[2018-07-14 03:10] VITALS: BP 154/83; PULSE 69; RESP 18; TEMP 36.8; O2SAT 98
[2018-07-14] MEDS: Carbidopa/Levodopa 25/100 Tablet PO ×3 (06:01→15:31)
[2018-07-14] MEDS: AMOXICILLIN 500 MG CAPSULE PO ×2 (06:01→14:25)
[2018-07-14 07:47] VITALS: BP 144/87; PULSE 68; RESP 18; TEMP 36.6; O2SAT 94
[2018-07-14] MEDS: Acetaminophen 325 MG Tablet 650 MG PO (07:53)
[2018-07-14] MEDS: Aspirin 81 MG TAB.CHEW PO (07:53)
[2018-07-14] MEDS: Ferrous Gluconate 325 MG Tablet PO (07:54)
[2018-07-14] MEDS: Multivitamins,Therapeutic Tablet 1 TABLET PO (07:54)
--- NOTE | 2018-07-14 09:04 | CASEMGMT ---
Addendum entered by Mary Maher 07/14/18 15:10: STEWART faxed completed discharge paperwork to Heather at [facility] including transfer to extended care facility, signed medication list and any scripts. Originals in SNF folder and copy on pt's chart. STEWART set up transportation via cot through [facility] for 4:00pm. Transportation form on SNF folder and copy on pt's chart. STEWART completed [facility] in [place]. Original in SNF folder and copy on pt's chart. STEWART updated medical secretary receptionist MINI Black Lanette and pt and pt's on transportation time. STEWART placed a call to Heather at [facility] and left her a message regarding transportation time. Original Note: Student Ministries Director Note SW received message from Heather at [facility] stating that she received pre-cert and pt is able to discharge today to [facility]. Plan: Discharge to [facility] today Mary Maher CRACKER SPRAYER, TAX COLLECTION COORDINATOR
[2018-07-14] MEDS: Enoxaparin 40 MG/0.4 ML Syringe SC (10:31)
[2018-07-14] MEDS: Pantoprazole Sodium 40 MG Tablet PO (10:31)
[2018-07-14] MEDS: Amiodarone 200 MG Tablet PO (10:31)
[2018-07-14] MEDS: Finasteride 5 MG Tablet PO (10:32)
--- NOTE | 2018-07-14 12:17 | PCM.PN.HOSP ---
Patient Problems: Active and Suspected Problems Acute encephalopathy (Acute) Acute UTI (Acute) Subjective: Has been having headaches at night and in the AM, since being in the hospital. Vitals/I&O's: Vital Signs Temp Pulse Resp BP Pulse Ox 36.6 C 68 18 144/87 H 94 07/14/18 07:47 07/14/18 07:47 07/14/18 07:47 07/14/18 07:47 07/14/18 07:47 Oxygen Delivery Method Room Air Weight: 77.11 kg Body Mass Index (BMI) 24.3 Intake and Output for Last 24 Hours 07/12/18 07/13/18 07/14/18 23:59 23:59 23:59 Intake Total 3940 / 3940 4967 / 4967 Output Total 4050 / 4050 3950 / 3950 1150 / 1150 Balance -110 / -110 1017 / 1017 -1150 / -1150 General: Alert, No apparent distress HEENT: Atraumatic, Normocephalic Oral: Moist Mucosa, No Gingival or Mucosal Lesions/ Ulcerations Neck: No Nodes, Thyroid Normal Size and Texture Lungs: Clear to auscultation, Normal air movement, No rhonchi, No wheeze Cardiovascular: Regular rate, Regular Rhythm, Normal S1, Normal S2, No murmurs Abdomen: Bowel Sounds Present, Soft, Non Tender, Non-Distended, No Hepato-splenomegaly Current Medications Acetaminophen (Tylenol) 650 mg PO Q6H PRN PRN PRN Reason: Mild Pain (scale 0-3)/T>100.7 Last Admin: 07/14/18 07:53 Dose: 650 mg Al Hydroxide/Mg Hydroxide (Mylanta Ii) 30 ml PO Q6H PRN PRN PRN Reason: Gastric burning Albuterol Sulfate (Ventolin Aerosols) 2.5 mg INHALATION Q2H PRN PRN PRN Reason: dyspnea, wheezing Amiodarone HCl (Cordarone) 200 mg PO DAILY [facility] Last Admin: 07/14/18 10:31 Dose: 200 mg Amoxicillin (Amoxil) 500 mg PO Q8 [facility] Last Admin: 07/14/18 06:01 Dose: 500 mg Aspirin (Aspirin, Baby) 81 mg PO DAILY@0800 [facility] Last Admin: 07/14/18 07:53 Dose: 81 mg Carbidopa/Levodopa (Sinemet) 2 tablet PO TIDAC [facility] Last Admin: 07/14/18 11:39 Dose: 2 tablet Enoxaparin Sodium (Lovenox) 40 mg SC DAILY@1000 [facility] Last Admin: 07/14/18 10:31 Dose: 40 mg Ferrous Gluconate (Ferrous Gluconate) 325 mg PO BIDCM [facility] Last Admin: 07/14/18 07:54 Dose: 325 mg Finasteride (Proscar) 5 mg PO DAILY [facility] Last Admin: 07/14/18 10:32 Dose: 5 mg Magnesium Hydroxide (Milk Of Magnesia) 30 ml PO DAILY PRN PRN PRN Reason: Constipation Melatonin (Melatonin) 3 mg PO QHS [facility] Last Admin: 07/13/18 21:19 Dose: 3 mg Multivitamins (Multivitamin) 1 tablet PO DAILY@0800 [facility] Last Admin: 07/14/18 07:54 Dose: 1 tablet Ondansetron HCl (Zofran) 4 mg IV Q8H PRN PRN PRN Reason: NAUSEA Pantoprazole Sodium (Protonix) 40 mg PO DAILY [facility] Last Admin: 07/14/18 10:31 Dose: 40 mg Promethazine HCl (Phenergan) 12.5 mg IV Q6H PRN PRN PRN Reason: NAUSEA/VOMITING Quetiapine Fumarate (Seroquel) 25 mg PO QHS PRN PRN Reason: AGITATION Last Admin: 07/13/18 21:19 Dose: 25 mg Sodium Chloride () 5 - 30 ml IV UD PRN PRN Reason: SALINE FLUSH Last Admin: 07/11/18 20:59 Dose: 10 ml Medical Necessity - Tobacco Use Smoking Status: Former smoker Tobacco Use: Non-smoker Assessment/Plan All Active Problems Acute encephalopathy (Acute) Acute UTI (Acute) Sepsis (Acute) Abnormal cardiac enzyme level (Acute) ARF (acute renal failure) (Acute) UTI (urinary tract infection) (Acute) 1. UTI +Enterococcus faecalis and GNR on Zosyn, change to amoxicillin, treat through 07/16, for 7 day course. deescalate based on final cultures Catheter-associated catheter changed during this admission The Acetobacter had low colony count and is likely a colonization. If it were virulent, I would have expected the patient to get worse since the abx he was on, were inneffective for the Actinobacteria 2. Metabolic encephalopathy 2/2 UTI and PD resolved avoid potentiating medications 3. BPH chronic bear d/t incontinence (per the patient and )--?Overflow Has not seen his urologist in ~2 years. Of note, was instructed to do during his hospitalization in July 2017 Dr. Swenson in [place] is his urologist, advised to follow up with him Question if he needs a SPC to help mitigate frequent UTIs. 4. parkinson's disease complicates care 5. Debility SNF upon discharge, will not be able to due to precertification until 07/14 6. DVT proph: LMWH [facility] patient's at bedside.
--- NOTE | 2018-07-14 12:20 | PN_ITS ---
Patient Problems: Active and Suspected Problems Acute encephalopathy (Acute) Acute UTI (Acute) Subjective: Has been having headaches at night and in the AM, since being in the hospital. Vitals/I&O's: Vital Signs Temp Pulse Resp BP Pulse Ox 36.6 C 68 18 144/87 H 94 07/14/18 07:47 07/14/18 07:47 07/14/18 07:47 07/14/18 07:47 07/14/18 07:47 Oxygen Delivery Method Room Air Weight: 77.11 kg Body Mass Index (BMI) 24.3 Intake and Output for Last 24 Hours 07/12/18 07/13/18 07/14/18 23:59 23:59 23:59 Intake Total 3940 / 3940 4967 / 4967 Output Total 4050 / 4050 3950 / 3950 1150 / 1150 Balance -110 / -110 1017 / 1017 -1150 / -1150 General: Alert, No apparent distress HEENT: Atraumatic, Normocephalic Oral: Moist Mucosa, No Gingival or Mucosal Lesions/ Ulcerations Neck: No Nodes, Thyroid Normal Size and Texture Lungs: Clear to auscultation, Normal air movement, No rhonchi, No wheeze Cardiovascular: Regular rate, Regular Rhythm, Normal S1, Normal S2, No murmurs Abdomen: Bowel Sounds Present, Soft, Non Tender, Non-Distended, No Hepato- splenomegaly Current Medications Acetaminophen (Tylenol) 650 mg PO Q6H PRN PRN PRN Reason: Mild Pain (scale 0-3)/T>100.7 Last Admin: 07/14/18 07:53 Dose: 650 mg Al Hydroxide/Mg Hydroxide (Mylanta Ii) 30 ml PO Q6H PRN PRN PRN Reason: Gastric burning Albuterol Sulfate (Ventolin Aerosols) 2.5 mg INHALATION Q2H PRN PRN PRN Reason: dyspnea, wheezing Amiodarone HCl (Cordarone) 200 mg PO DAILY [facility] Last Admin: 07/14/18 10:31 Dose: 200 mg Amoxicillin (Amoxil) 500 mg PO Q8 [facility] Last Admin: 07/14/18 06:01 Dose: 500 mg Aspirin (Aspirin, Baby) 81 mg PO DAILY@0800 [facility] Last Admin: 07/14/18 07:53 Dose: 81 mg Carbidopa/Levodopa (Sinemet) 2 tablet PO TIDAC [facility] Last Admin: 07/14/18 11:39 Dose: 2 tablet Enoxaparin Sodium (Lovenox) 40 mg SC DAILY@1000 [facility] Last Admin: 07/14/18 10:31 Dose: 40 mg Ferrous Gluconate (Ferrous Gluconate) 325 mg PO BIDCM [facility] Last Admin: 07/14/18 07:54 Dose: 325 mg Finasteride (Proscar) 5 mg PO DAILY [facility] Last Admin: 07/14/18 10:32 Dose: 5 mg Magnesium Hydroxide (Milk Of Magnesia) 30 ml PO DAILY PRN PRN PRN Reason: Constipation Melatonin (Melatonin) 3 mg PO QHS [facility] Last Admin: 07/13/18 21:19 Dose: 3 mg Multivitamins (Multivitamin) 1 tablet PO DAILY@0800 [facility] Last Admin: 07/14/18 07:54 Dose: 1 tablet Ondansetron HCl (Zofran) 4 mg IV Q8H PRN PRN PRN Reason: NAUSEA Pantoprazole Sodium (Protonix) 40 mg PO DAILY [facility] Last Admin: 07/14/18 10:31 Dose: 40 mg Promethazine HCl (Phenergan) 12.5 mg IV Q6H PRN PRN PRN Reason: NAUSEA/VOMITING Quetiapine Fumarate (Seroquel) 25 mg PO QHS PRN PRN Reason: AGITATION Last Admin: 07/13/18 21:19 Dose: 25 mg Sodium Chloride () 5 - 30 ml IV UD PRN PRN Reason: SALINE FLUSH Last Admin: 07/11/18 20:59 Dose: 10 ml Medical Necessity - Tobacco Use Smoking Status: Former smoker Tobacco Use: Non-smoker Assessment/Plan All Active Problems Acute encephalopathy (Acute) Acute UTI (Acute) Sepsis (Acute) Abnormal cardiac enzyme level (Acute) ARF (acute renal failure) (Acute) UTI (urinary tract infection) (Acute) 1. UTI * +Enterococcus faecalis and GNR * on Zosyn, change to amoxicillin, treat through 07/16, for 7 day course. * deescalate based on final cultures * Catheter-associated * catheter changed during this admission * The Acetobacter had low colony count and is likely a colonization. If it were virulent, I would have expected the patient to get worse since the abx he was on , were inneffective for the Actinobacteria 2. Metabolic encephalopathy * 2/2 UTI and PD * resolved * avoid potentiating medications 3. BPH * chronic bear d/t incontinence (per the patient and )--?Overflow * Has not seen his urologist in ~2 years. Of note, was instructed to do during his hospitalization in July 2017 * Dr. Swenson in [place] is his urologist, advised to follow up with him * Question if he needs a SPC to help mitigate frequent UTIs. 4. parkinson's disease * complicates care 5. Debility * SNF upon discharge, will not be able to due to precertification until 07/14 6. DVT proph: LMWH [facility] patient's at bedside.
--- NOTE | 2018-07-14 12:24 | PCM.TXEXTCAR ---
- Diet 07/09/18 21:54 Diet: Regular Diet Food consistency:: Regular Liquid Consistency:: Regular/Thin Type of Dietary Supplement:: Ensure Clear - Routine Orders/Code Status Routine Lab Work: CBC, BMP Code Status: Full Code - Wound(s) scratch right upper back Wound Type: scratch right forearm- skin tear/ bruise Wound Type: Skin Tear - Therapies Weight Bearing: Full weight bearing Physical Therapy: Eval and Treat Occupational Therapy: Eval and Treat - Allergies/Procedures Done in Hospital Allergies/Adverse Reactions: Allergies oxycodone [From Percocet] Adverse Reaction (Verified 07/09/18 22:36) hallucination, increased confusion, per family - Type of Care/Length of Stay Estimated LOS: Convalescent Care Less Than 30 days Type of Care Needed: Skilled Rehab Potential: Fair Prognosis: Fair - Additional Orders/Day of Discharge Day of Discharge: 07/14/18 - Dietary and Speech Recommendations Dietitian Recommendations/Changes: Rec diet change to regular, low sodium. Please switch ONS w/ meals from Ensure Clear to Ensure Enlive. - Follow Up Care Primary Care Physician: Sherwin Jorgensen MD [Primary Care Provider] - Within 2 Weeks Please Follow Up With: Messi When: 4-6 weeks
--- NOTE | 2018-07-14 12:28 | DS.PCM_ITS ---
Discharge Date and Diagnosis - Problem List Patient Problems: Active and Suspected Problems Acute encephalopathy (Acute) Acute UTI (Acute) Date of Admission: 07/09/18 Date of Discharge: 07/14/18 - Primary Discharge Diagnosis Active and Suspected Problems Acute encephalopathy (Acute) Acute UTI (Acute) - Secondary Discharge Diagnosis Chronic Problems CKD (chronic kidney disease) stage 3, GFR 30-59 ml/min (Chronic) BPH (benign prostatic hyperplasia) (Chronic) S/P TURP (Chronic) Atrial fibrillation and flutter (Chronic) PAF Bladder cancer (Chronic) Ureteral cancer (Chronic) Single kidney (Chronic) Parkinsons disease (Chronic) Hospital Course and Treatment Imaging Results: Clinical Impression(s) from Imaging Studies Chest X-Ray 07/09/18 20:05 IMPRESSION: 1. No acute process. 2. Question COPD. Electronically Signed: Bev Agosto MD at 20:22 EDT Tel , Service support , Operations: None Procedures: None Summary of Care Provided: The patient is a 78 year old M presents with confusion and found to have a UTI. 1. UTI * +Enterococcus faecalis and GNR * on Zosyn, change to amoxicillin, treat through 07/16, for 7 day course. * deescalate based on final cultures * Catheter-associated * catheter changed during this admission * The Acetobacter had low colony count and is likely a colonization. If it were virulent, I would have expected the patient to get worse since the abx he was on , were ineffective for the Actinobacteria 2. Metabolic encephalopathy * 2/2 UTI and PD * resolved * avoid potentiating medications 3. BPH * chronic bear d/t incontinence (per the patient and )--?Overflow * Has not seen his urologist in ~2 years. Of note, was instructed to do during his hospitalization in July 2017 * Dr. Swenson in [place] is his urologist, advised to follow up with him * Question if he needs a SPC to help mitigate frequent UTIs.[] Discharge Diet: No Restrictions Discharge Activity: Return to Normal Activity Call your doctor if you observe: Fever of 101 or Higher, Inability to urinate Home Medications: Medications to take at Discharge Carbidopa/Levodopa [Sinemet Cr 25-100 Tablet] 2 each PO TID 02/04/14 Finasteride [Proscar] 5 mg PO DAILY 05/29/17 Amiodarone HCl [Cordarone] 200 mg PO DAILY 07/11/17 Pantoprazole Sodium [Protonix] 40 mg PO DAILY 07/11/17 Melatonin 3 mg PO QHS 07/09/18 Multivitamin [Multiple Vitamins] 1 each PO DAILY 07/09/18 Acetaminophen [Tylenol Tablet] 650 mg PO Q6H PRN PRN tablet 07/14/18 Amoxicillin [Amoxil] 500 mg PO Q8 #0 capsule 07/14/18 Primary Care Physician: Sherwin Jorgensen MD [Primary Care Provider] - Within 2 Weeks Please Follow Up With: Messi When: 4-6 weeks Disposition: Detention facility Minutes spent on discharge:: 32 Patient Condition:: Fair Medical Necessity - Tobacco Use Smoking Status: Former smoker Tobacco Use: Non-smoker Meaningful Use Info Meaningful Use Diagnoses (Choose all that apply): None applicable Code Visit Inpatient E&M: 62377 Disch Hosp
[2018-07-14 15:34] VITALS: BP 99/61; PULSE 64; RESP 18; TEMP 36.7; O2SAT 96
--- NOTE | 2018-07-14 16:06 | NURSING ---
report called to anrdea friedman and talked with eliana otoole
== END 2018-07-14 16:15 | disposition skilled nursing facility (03) | DRG 698 ==
LOC: ED 20:44 → MS3 22:01
PROVIDERS: Admitting Provider Family Medicine; Emergency Provider Emergency Medicine; Family Provider Internal Medicine; PCP Internal Medicine
DX: T83.511A Infection and inflammatory reaction due to indwelling urethral catheter, initial encounter (principal); G93.41 Metabolic encephalopathy; Q60.0 Renal agenesis, unilateral; N39.0 Urinary tract infection, site not specified; N40.0 Benign prostatic hyperplasia without lower urinary tract symptoms; G20 Parkinson's disease; B95.2 Enterococcus as the cause of diseases classified elsewhere; N18.3 Chronic kidney disease, stage 3 (moderate); R32 Unspecified urinary incontinence; C67.9 Malignant neoplasm of bladder, unspecified
CPT/HCPCS: 36415; 71045; 80048; 81001; 82607; 82728; 82746; 83540; 83550; 83605; 83735; 85025; 87077; 87086; 87088; 87186; 93005; 97110; 97116; 97162; 97166; 97530; 97535; 97802; 99285; J7030; J7040; J7050; A4216

== ENCOUNTER 2018-10-29 15:37 | Emergency (ER) | payer MEDICARE, SELFPAY ==
[2018-10-29] VITALS (7 sets, daily range): BP systolic 139–169; BP diastolic 68–95; PULSE 65–73; RESP 15–18; TEMP 36.5–37.2; O2SAT 95–97; BMI 24.3
--- NOTE | 2018-10-29 16:04 | ED.VISSUMM ---
- ER Visit Summary Date of Service: 10/29/18 Chief Complaint: Possible UTI and decreased urine output History of Present Illness: The patient is a 78 M with history of chronic indwelling Flores catheter. Patient had no urine output for approximately 15 hours. The home nurse removed his Flores catheter 1 hour ago but did not attempt to place a new catheter secondary to the being a small amount of blood on the catheter. Patient has not had fever or chills. He follows with a urologist in [place], but states he has not been seen in their office for approximately a year. He does have a single functioning kidney. Physical Examination: Vital signs unremarkable. Patient sitting upright in bed. He is in no acute distress. Head neck examination unremarkable. Heart is regular rate and rhythm. Lungs sounds clear. Abdomen is soft with tenderness in the suprapubic region. No guarding or rebound. Test Results: CBC was normal white count with hemoglobin 11.7. Chemistry studies reveal BUN of 24 and a creatinine 1.66. Flores catheter was placed without difficulty and urinalysis reveals grade 100 white cells with 2+ bacteria. 50-100 RBCs are noted. Emergency Department Course and Treatment: Flores was placed with 1100 cc of urine returned. Urine culture has been sent. Based on last admission and urine culture results, patient be sent home with amoxicillin. Patient and are declining hospital admission at this time. They were advised the culture results will be final in 2 days and they may receive a phone call for change of antibiotic if needed. Treatment Plan: [] Disposition: Discharge Impression: 1. Urinary retention 2. Cystitis This note was generated with [employer] dictation software. It may contain incorrect words, spelling, and punctuation that were not noted in review of the chart prior to signing ED Disposition - Plan for ED Patient: Disposition: Home or Assisted Living Chief Complaint: Complaint Instructions: ED Retention Urinary Male, ED UTI Cystitis Male Prescriptions: Amoxicillin 500 mg PO TID #30 tablet Referrals: Sherwin Jorgensen MD [Primary Care Provider] - 1 Week
[2018-10-29 16:35] LABS: Absolute Lymphocyte Count 1.14 X10^3/ul (0.83-4.51); Absolute Neutrophil Count 7.4 X10^3/uL (2.0-7.7); Basophil# 0.01 X10^3/uL; Basophil% 0.1 % (0-1); Eosinophil# 0.04 X10^3/uL; Eosinophils% 0.4 % (0-5); Hemoglobin 11.7 g/dl (13.0-16.5); Lymphocyte # 1.14 X10^3/ul (4.0); Lymphocyte % 11.3 % (19-41); Mean Corp Hgb Conc 32.5 g/gl (32-36); Mean Corpuscular Hgb 30.1 pg (27.0-32.0); Mean Corpuscular Volume 92.5 fL (80-94); Mean Platelet Vol. 10.7 fl (6.2-12.0); Monocyte# 1.53 X10^3/uL; Monocyte% 15.2 % (0-10); Neutrophil # 7.35 X10^3/uL (2.7-7.7); Neutrophil % 72.8 % (47-70); Platelet Count 219 K/mm3 (150-450); RBC Distribution Width SD 50.3 fl (35.1-43.9); Red Blood Count 3.89 M/mm3 (4.6-6.2); White Blood Count 10.1 K/mm3 (4.4-11.0)
[2018-10-29 16:37] LABS: Anion Gap 8 (5-15); BUN 24 mg/dL (7-18); BUN/Creat Ratio 14.5 RATIO (10-20); Calcium,Total 8.8 mg/dL (8.5-10.1); Chloride 105 mmol/L (98-107); Creatinine, Serum 1.66 mg/dL (0.70-1.30); Differential Indicated SCAN CRITERIA MET; EST Glomerular Filtration Rate 43 mL/min (>60); Est Glom Filt Rate - Afr Amer 52 mL/min (>60); Estimated Creatinine Clearance 37.87 ml/min; Glucose 101 mg/dL (74-106); POSITIVE COUNT NO; POSITIVE DIFFERENTIAL YES; POSITIVE MORPHOLOGY NO; Potassium 4.3 mmol/L (3.5-5.1); Sodium Level 139 mmol/L (136-145)
[2018-10-29 17:22] LABS: Mucous, Urine 0 SEEN /hpf (<or=2+); Squamous Epithelial Cells - UA 0 SEEN /hpf (0-5)
[2018-10-29 17:23] LABS: Platelet Estimate ADEQUATE (ADEQ); Red Cell Morphology NORM C+C NORMAL (NORM C&C)
[2018-10-29 17:47] LABS: Color, Urine Yellow (Yellow); Glucose, Dipstick Normal (Normal); Ketone-Dipstick Negative (Negative); Leukocyte Esterase-Dipstick 500 /ul (Negative); Nitrite-Dipstick Negative (Negative); Occult Blood-Urine 250 /ul (Negative); Protein-Dipstick 30 mg/dl (Negative); Urine Bilirubin Dipstick Negative (Negative); Urine Clarity Sl. Cloudy (Clear); Urine Urobilinogen Normal (Normal)
[2018-10-29 18:16] LABS: Red Blood Cells-Urine 50-100 SEEN /hpf (0-5); White Blood Cells >100 SEEN /hpf (0-5)
[2018-10-29 18:17] LABS: Bacteria 2+ /hpf (None Seen)
--- NOTE | 2018-10-29 18:57 | ED.DEP ---
ED Disposition - Plan for ED Patient: Disposition: Home or Assisted Living Chief Complaint: Complaint Instructions: ED Retention Urinary Male, ED UTI Cystitis Male Prescriptions: Amoxicillin 500 mg PO TID #30 tablet Referrals: Sherwin Jorgensen MD [Primary Care Provider] - 1 Week
[2018-10-29] MEDS: AMOXICILLIN 500 MG CAPSULE PO (19:06)
== END 2018-10-29 19:19 | disposition home or self-care (01) ==
PROVIDERS: Emergency Provider Emergency Medicine; Family Provider Internal Medicine; PCP Internal Medicine
DX: N40.1 Benign prostatic hyperplasia with lower urinary tract symptoms (principal); R33.8 Other retention of urine; N30.90 Cystitis, unspecified without hematuria; Q60.0 Renal agenesis, unilateral; G20 Parkinson's disease; I48.91 Unspecified atrial fibrillation; I48.92 Unspecified atrial flutter; Z79.899 Other long term (current) drug therapy; Z87.891 Personal history of nicotine dependence
CPT/HCPCS: 51702; 80048; 81001; 85025; 87077; 87086; 87088; 87186; 99285; A4216

== ENCOUNTER 2018-11-30 19:59 | Emergency (ER) | payer MEDICARE, SELFPAY ==
[2018-10-29 15:39] VITALS: BMI 24.3
[2018-11-30 20:00] VITALS: BP 126/84; PULSE 74; RESP 17; TEMP 36.2; O2SAT 99; BMI 24.3
--- NOTE | 2018-11-30 21:45 | ED.DCSUM_ITS ---
- ER Visit Summary Date of Service: 11/30/18 Chief Complaint: Hematuria and bladder spasms History of Present Illness: The patient is a 78 M with chronic indwelling Flores catheter who presents for bladder spasms today and hematuria. Patient was having bladder spasms earlier and had no drainage in his Flores catheter. A home health nurse irrigated his Flores, and afterwards patient states the bladder spasms improved and his Flores catheter eventually began draining again. However and patient still note hematuria and patient is having intermittent spasms. He has had similar symptoms in the past with a UTI. Patient denies any abdominal pain, nausea, vomiting, fever, or any other complaints. He has a history of a solitary kidney and the need for the chronic indwelling catheter. Physical Examination: Vital signs: afebrile, hemodynamically stable, no hypoxia on room air General: well nourished, well developed, in no distress Skin: warm, dry, no rash, no pallor HEENT: normocephalic and atraumatic; PERRL, EOMI, moist mucous membranes Cardiovascular: regular rate and rhythm Respiratory: No increased work of breathing Abdominal: Abdomen is soft, nontender with normoactive bowel sounds, no guarding or rebound, no masses no suprapubic fullness or tenderness exam: Normal external male genitalia, no blood at the urethral meatus, Flores catheter in place with pink tinged clear urine in the bag Neuro: Awake and alert, oriented ?4. No facial droop, sensation and motor function intact and symmetric Test Results: Abnormal Lab Results 11/30/18 22:35 Urine Color Yellow Urine Clarity Sl. Cloudy Urine pH 7.0 Ur Specific [place] 1.010 Urine Protein 30 H Urine Glucose (UA) Normal Urine Ketones Negative Urine Occult Blood 250 H Urine Nitrite Negative Urine Bilirubin Negative Urine Urobilinogen 4 H Ur Leukocyte Esterase 500 H Urine RBC 25-50 SEEN Urine WBC 5-10 SEEN Ur Squamous Epith Cells Not Reportable Urine Bacteria 0 SEEN Urine Mucus 0 SEEN Medications Given Discontinued Medications Levofloxacin (Levaquin Tablet) 750 mg PO X1 ONE Stop: 11/30/18 23:24 Last Admin: 11/30/18 23:39 Dose: 750 mg Emergency Department Course and Treatment: Flores catheter was replaced and urine changed to clear and yellow. Urinalysis performed and was concerning for urinary tract infection in a patient with a chronic indwelling Flores. Given the patient was symptomatic today and does have urinalysis concerning for mild UTI, patient was started on antibiotics for treatment. stated that she is unable to get to the pharmacy until tomorrow afternoon and requested an antibiotic that B dose so that he did not miss a dose in the morning. No contraindications were noted so patient was started on Levaquin, with the first dose in the emergency department and the next dose will be tomorrow evening. Patient felt much better and had no further bladder spasms. Floers catheter was draining clear yellow urine. No further hematuria noted. Patient is to keep his appointment coming up with the urologist as scheduled. Patient discharged home. Treatment Plan: [] Disposition: [] Impression: Flores catheter problem, complicated cystitis This note was generated with [employer] dictation software. It may contain incorrect words, spelling, and punctuation that were not noted in review of the chart prior to signing ED Disposition - Plan for ED Patient: Disposition: Home or Assisted Living Instructions: ED Catheter Care Sandra, ED UTI Cystitis Male Prescriptions: Levofloxacin [Levaquin] 750 mg PO DAILY 4 Days #4 tab Referrals: Sherwin Jorgensen MD [Primary Care Provider] - 1-2 Days if not improving Additional Instructions: Take the antibiotic once daily for 4 additional days. You were given the first dose in the emergency department. Take the next dose Thursday evening. Keep your appointment with the urology office as scheduled. If you have any worsening of your condition or any new concerning symptoms, please return immediately to the emergency department for another evaluation.
[2018-11-30 22:40] LABS: Bacteria 0 SEEN /hpf (None Seen); Mucous, Urine 0 SEEN /hpf (<or=2+)
[2018-11-30 22:43] VITALS: BP 183/92; PULSE 69; RESP 17; O2SAT 96
[2018-11-30 22:43] LABS: Color, Urine Yellow (Yellow); Glucose, Dipstick Normal (Normal); Ketone-Dipstick Negative (Negative); Leukocyte Esterase-Dipstick 500 /ul (Negative); Nitrite-Dipstick Negative (Negative); Occult Blood-Urine 250 /ul (Negative); Protein-Dipstick 30 mg/dl (Negative); Urine Bilirubin Dipstick Negative (Negative); Urine Clarity Sl. Cloudy (Clear); Urine Urobilinogen 4 mg/dl (Normal)
[2018-11-30 22:50] LABS: Red Blood Cells-Urine 25-50 SEEN /hpf (0-5); White Blood Cells 5-10 SEEN /hpf (0-5)
--- NOTE | 2018-11-30 23:25 | ED.DEP ---
ED Disposition - Plan for ED Patient: Disposition: Home or Assisted Living Instructions: ED UTI Cystitis Male, ED Catheter Care Flores Prescriptions: Levofloxacin [Levaquin] 750 mg PO DAILY 4 Days #4 tab Referrals: Sherwin Jrogensen MD [Primary Care Provider] - 1-2 Days if not improving Additional Instructions: Take the antibiotic once daily for 4 additional days. You were given the first dose in the emergency department. Take the next dose Thursday evening. Keep your appointment with the urology office as scheduled. If you have any worsening of your condition or any new concerning symptoms, please return immediately to the emergency department for another evaluation.
[2018-11-30 23:36] VITALS: BP 178/94; PULSE 68; RESP 16; O2SAT 96
[2018-11-30] MEDS: levoFLOXacin 750 MG Tablet PO (23:39)
== END 2018-12-01 00:23 | disposition home or self-care (01) ==
PROVIDERS: Emergency Provider Emergency Medicine; Family Provider Internal Medicine; PCP Internal Medicine
DX: N30.91 Cystitis, unspecified with hematuria (principal); R31.9 Hematuria, unspecified; N32.89 Other specified disorders of bladder; Q60.0 Renal agenesis, unilateral; Z79.899 Other long term (current) drug therapy; Z87.440 Personal history of urinary (tract) infections
CPT/HCPCS: 51702; 81001; 87077; 87086; 87088; 87186; 99284

== ENCOUNTER 2018-12-04 02:33 | Emergency (ER) | payer MEDICARE, SELFPAY ==
[2018-12-04 02:34] VITALS: BP 177/110; PULSE 73; RESP 15; TEMP 36.3; O2SAT 98; BMI 26.1
--- NOTE | 2018-12-04 02:54 | ED.DCSUM_ITS ---
- ER Visit Summary Date of Service: 12/04/18 Chief Complaint: Abdominal pain, bladder spasms History of Present Illness: The patient is a 78 M presents to the emergency department bladder spasms. Patient has a chronic indwelling Flores. He was actually seen here 4 days ago. At that time, his Flores was replaced. His urine did show evidence of infection. He was started on Levaquin. He states it was draining fine yesterday. He states that he woke from sleep at about 2 AM with a sharp pain in the suprapubic area and spasms. He states he will get this from time to time especially if his Flores is not draining. He has had no urine out in the bag. He denies any fevers or chills. Has been compliant with his antibiotics. He denies any nausea or vomiting. Physical Examination: Vital signs reviewed General: Well-nourished, well-developed Head: Normocephalic, atraumatic Eyes: Pupils equal and reactive, extraocular muscles intact Neck, supple, no lymphadenopathy Heart: Regular rate and rhythm Respiratory: No distress, clear bilaterally Abdomen: Soft, nontender, nondistended, no peritoneal signs Back: Nontender Extremities: Nontender, no edema, no cords Skin: Normal color no rash Neuro: Alert and oriented, no focal or lateralizing deficits Test Results: [] Emergency Department Course and Treatment: The patient's bag is basically empty. He does have some suprapubic fullness but no real tenderness. We did attempt to irrigate the Flores but nothing would come back. He was having a lot of spasm. He was given IM morphine. My suspicion is that his Flores was obstructed. It was removed and replaced. There was a small string of clot at the end of Flores that was obstructing it. New Flores was placed. The patient had proximal 1100 cc of nonbloody urine out. His pain was relieved. He will continue his antibiotics. I did review his culture and it was sensitive to Levaquin. I do feel that he is safe for outpatient therapy. is comfortable with this plan of care. Treatment Plan: [] Disposition: Discharge Impression: 1. Flores obstruction This note was generated with [employer] dictation software. It may contain incorrect words, spelling, and punctuation that were not noted in review of the chart prior to signing ED Disposition - Plan for ED Patient: Instructions: ED Catheter Care Flores Referrals: Sherwin Jorgensen MD [Primary Care Provider] -
[2018-12-04] MEDS: Morphine 4 MG/ML Syringe IM (03:12)
[2018-12-04 04:09] VITALS: BP 115/74; PULSE 59; RESP 15; O2SAT 96
[2018-12-04] MEDS: levoFLOXacin 750 MG Tablet PO (04:09)
== END 2018-12-04 04:38 | disposition home or self-care (01) ==
LOC: ED 02:42
PROVIDERS: Emergency Provider Emergency Medicine; Family Provider Internal Medicine; PCP Internal Medicine
DX: T83.098A Other mechanical complication of other urinary catheter, initial encounter (principal); N32.89 Other specified disorders of bladder; R35.0 Frequency of micturition; Z79.899 Other long term (current) drug therapy; Z87.440 Personal history of urinary (tract) infections
CPT/HCPCS: 51702; 96372; 99285

== ENCOUNTER 2018-12-09 01:06 | Emergency (ER) | payer MEDICARE, SELFPAY ==
[2018-12-09 01:07] VITALS: BP 187/98; PULSE 74; RESP 18; TEMP 36.6; O2SAT 98; BMI 26.5
--- NOTE | 2018-12-09 02:20 | ED.DEP ---
ED Disposition - Plan for ED Patient: Instructions: ED Catheter Care Flores Referrals: Sherwin Jorgensen MD [Primary Care Provider] -
[2018-12-09 02:46] VITALS: BP 155/78; PULSE 71; RESP 18; O2SAT 99
--- NOTE | 2018-12-09 07:33 | ED.VISSUMM ---
- ER Visit Summary Date of Service: 12/09/18 Chief Complaint: Bladder spasm History of Present Illness: The patient is a 78 M who presents with bladder spasm. Patient and are poor informants. He has had multiple ER visits for similar symptoms. He complains of suprapubic abdominal pain which began this afternoon. No fevers chest pain shortness of breath vomiting diarrhea. He does note that he has recently also seen urology in the office. Physical Examination: Afebrile vitals notable for blood pressure 187/98 Moist mucous membranes Heart regular rate and rhythm Lungs clear Abdomen soft Suprapubic abdominal tenderness Test Results: Not indicated Emergency Department Course and Treatment: On review of records patient has actually been seen multiple times for obstruction of his Flores. He was given a opium and belladonna suppository here for bladder spasm. We attempted to irrigate his Flores but were unable to do so and his Flores was changed. He had about a liter out and had significant improvement of symptoms. Patient family advised to follow-up with urology and the patient was discharged. Treatment Plan: [] Disposition: Discharge Impression: Urinary retention Flores malfunction Bladder spasm This note was generated with [employer] dictation software. It may contain incorrect words, spelling, and punctuation that were not noted in review of the chart prior to signing ED Disposition - Plan for ED Patient: Disposition: Home or Assisted Living Instructions: ED Catheter Care Flores Referrals: Sherwin Jorgensen MD [Primary Care Provider] -
== END 2018-12-09 02:53 | disposition home or self-care (01) ==
PROVIDERS: Emergency Provider Emergency Medicine; Family Provider Internal Medicine; PCP Internal Medicine
DX: R33.9 Retention of urine, unspecified (principal); T83.091A Other mechanical complication of indwelling urethral catheter, initial encounter; N32.89 Other specified disorders of bladder; G20 Parkinson's disease; Z79.899 Other long term (current) drug therapy
CPT/HCPCS: 51702; 99285

== ENCOUNTER 2019-01-25 09:03 | Emergency (ER) | payer MEDICARE, SELFPAY ==
[2019-01-25 09:04] VITALS: BP 148/76; PULSE 77; RESP 16; TEMP 36.4; O2SAT 100; BMI 24.3
--- NOTE | 2019-01-25 09:21 | ED.VISSUMM ---
- ER Visit Summary Date of Service: 01/25/19 Chief Complaint: Possible dehydration History of Present Illness: The patient is a 78 M who presents with possible dehydration. states that the patient's Flores has only had minimal urine output today. called the home health nurse who felt that the patient may be dehydrated due to his episode of diarrhea today. states patient has not eaten or drank anything since last evening. Patient denies any nausea or vomiting. Patient denies any fevers or chills. Patient has an indwelling Flores catheter due to his Parkinson's disease. Patient denies any dysuria or hematuria. Physical Examination: Vital signs are stable. Patient is afebrile. Patient is in no acute distress. Oral mucosa is pink and moist. Neck is supple. Trachea is midline. There is no JVD noted. Heart was regular rate and rhythm. Lungs are clear and equal bilateral. There is adequate respiratory effort noted. Abdomen is soft. Bowel sounds are normal. There is some mild lower abdominal tenderness. There is no rebound or guarding noted. Cranial nerves II through XII are intact. There is a pill-rolling tremor noted of the right upper extremity. There are no focal deficits noted. Test Results: Urinalysis shows evidence of urinary tract infection. CBC showed a slight anemia with hemoglobin of 11.9 and hematocrit 36.0. Creatinine was 1.48 which is consistent with prior results. Urine culture was obtained and is pending. Emergency Department Course and Treatment: Bladder scan was performed and there was 800 cc of urine in the bladder. Flores catheter was replaced. There is good urine flow. Patient was given IV fluids. Patient was given a prescription for Bactrim. Patient was instructed to follow-up with his primary care physician in 5-7 days. Patient and family understood and were agreeable with the plan. All questions were answered. Disposition: Discharge home Impression: Urinary tract infection This note was generated with [employer] dictation software. It may contain incorrect words, spelling, and punctuation that were not noted in review of the chart prior to signing ED Disposition - Plan for ED Patient: Disposition: Home or Assisted Living Diagnosis: UTI (urinary tract infection) Instructions: Discharge Instructions: Caring for Your Indwelling Urinary Catheter, ED UTI Cystitis Male Prescriptions: Smz/Tmp Ds [Bactrim Ds] 1 tab PO BID #14 tab Referrals: Sherwin Jorgensen MD [Primary Care Provider] - 3-5 Days
[2019-01-25 09:48] LABS: Absolute Lymphocyte Count 0.97 X10^3/ul (0.83-4.51); Absolute Neutrophil Count 7.3 X10^3/uL (2.0-7.7); Basophil# 0.02 X10^3/uL; Basophil% 0.2 % (0-1); Eosinophil# 0.03 X10^3/uL; Eosinophils% 0.3 % (0-5); Hemoglobin 11.9 g/dl (13.0-16.5); Lymphocyte # 0.97 X10^3/ul (4.0); Lymphocyte % 10.4 % (19-41); Mean Corp Hgb Conc 33.1 g/gl (32-36); Mean Corpuscular Hgb 30.6 pg (27.0-32.0); Mean Corpuscular Volume 92.5 fL (80-94); Mean Platelet Vol. 10.4 fl (6.2-12.0); Monocyte# 1.01 X10^3/uL; Monocyte% 10.8 % (0-10); Neutrophil # 7.29 X10^3/uL (2.7-7.7); Neutrophil % 78.2 % (47-70); Platelet Count 241 K/mm3 (150-450); RBC Distribution Width CV 14.3 % (11.6-14.6); RBC Distribution Width SD 47.8 fl (35.1-43.9); Red Blood Count 3.89 M/mm3 (4.6-6.2); White Blood Count 9.3 K/mm3 (4.4-11.0)
[2019-01-25 09:50] LABS: POSITIVE COUNT NO; POSITIVE DIFFERENTIAL NO; POSITIVE MORPHOLOGY NO
[2019-01-25 09:59] LABS: Anion Gap 8 (5-15); BUN 23 mg/dL (7-18); BUN/Creat Ratio 15.5 RATIO (10-20); Chloride 104 mmol/L (98-107); Creatinine, Serum 1.48 mg/dL (0.70-1.30); EST Glomerular Filtration Rate 49 mL/min (>60); Est Glom Filt Rate - Afr Amer 59 mL/min (>60); Estimated Creatinine Clearance 42.47 ml/min; Glucose 102 mg/dL (74-106); Potassium 3.9 mmol/L (3.5-5.1); Sodium Level 139 mmol/L (136-145)
[2019-01-25 10:06] VITALS: BP 150/82; PULSE 69; RESP 16; TEMP 36.4; O2SAT 98
[2019-01-25 10:27] LABS: Color, Urine Yellow (Yellow); Glucose, Dipstick Normal (Normal); Ketone-Dipstick Negative (Negative); Leukocyte Esterase-Dipstick 500 /ul (Negative); Nitrite-Dipstick Negative (Negative); Occult Blood-Urine 250 /ul (Negative); Protein-Dipstick 30 mg/dl (Negative); Urine Bilirubin Dipstick Negative (Negative); Urine Clarity Sl. Cloudy (Clear); Urine Urobilinogen Normal (Normal)
[2019-01-25 10:34] LABS: Red Blood Cells-Urine 5-10 SEEN /hpf (0-5); Squamous Epithelial Cells - UA 0-5 SEEN /hpf (0-5); White Blood Cells 25-50 SEEN /hpf (0-5)
[2019-01-25 10:35] LABS: Bacteria 1+ /hpf (None Seen); Mucous, Urine RARE /hpf (<or=2+)
[2019-01-25] MEDS: 0.9% Normal Saline 1,000 ML 1000 ML IV (10:47)
[2019-01-25 11:39] VITALS: BP 160/83; PULSE 81; RESP 19; TEMP 36.4; O2SAT 99
[2019-01-25 12:10] VITALS: TEMP 36.4
--- NOTE | 2019-01-25 13:25 | ED.RN ---
ATTEMPTED MANUAL FLUSH, UNSUCCESSFUL. NEW CATH PLACED.
== END 2019-01-25 12:53 | disposition home or self-care (01) ==
PROVIDERS: Emergency Provider Emergency Medicine; Family Provider Internal Medicine; PCP Internal Medicine
DX: N39.0 Urinary tract infection, site not specified (principal); T83.028A Displacement of other urinary catheter, initial encounter; I48.91 Unspecified atrial fibrillation; I48.92 Unspecified atrial flutter; N18.9 Chronic kidney disease, unspecified; R19.7 Diarrhea, unspecified; G20 Parkinson's disease; F02.80 Dementia in other diseases classified elsewhere, unspecified severity, without behavioral disturbance, psychotic disturbance, mood disturbance, and anxiety; Z79.899 Other long term (current) drug therapy; N40.0 Benign prostatic hyperplasia without lower urinary tract symptoms; Z85.51 Personal history of malignant neoplasm of bladder; Z85.54 Personal history of malignant neoplasm of ureter; Z90.5 Acquired absence of kidney
CPT/HCPCS: 80048; 81001; 85025; 87077; 87086; 87088; 87186; 96360; 99282; 99283; J7030; A4216

== ENCOUNTER 2019-01-25 20:06 | Emergency (ER) | payer MEDICARE, SELFPAY ==
[2019-01-25 09:04] VITALS: BMI 24.3
[2019-01-25 20:08] VITALS: BP 122/73; PULSE 94; RESP 16; TEMP 36.6; O2SAT 98; BMI 24.4
--- NOTE | 2019-01-25 20:55 | ED.RN ---
PT ARRIVES WITH 125ML URINE IN MALDONADO BAG. URINE WITH BRIGHT RED BLOOD, NO URINE CURRENTLY DRAINAING. CLOTS NOTED THROUGHOUT CATHETER TUBING. BLADDER SCANNED FOR 360ML URINE. MALDONADO BALLOON DEFLATED AND CATHETER INSERTED FURTHER INTO PENIS, CLEAR YELLOW URINE NOTED DRAINING THROUGH TUBING. BALLOON REINFLATED WITH 10ML SALINE. IMMEDIATE RETURN OF 325ML URINE NOTED. STICKER CATHETER SECURE PLACED EVEN THOUGH PT PREFERS VELCRO BAND AROUND LEG. EDUCATED THAT VELCRO BAND CAN SLIP DOWN LEG, PULLING CATHETER OUT OF PLACE. ALSO REQUESTS STICKER SECURE PLACED.
--- NOTE | 2019-01-25 21:16 | ED.DCSUM_ITS ---
- ER Visit Summary Date of Service: 01/25/19 Chief Complaint: Flores problem History of Present Illness: The patient is a 78 M who was seen in the ED earlier today and had his Flores catheter changed. Tonight patient's noted decreased urine output and some blood in the catheter tubing. Physical Examination: Vital signs unremarkable. Patient sitting upright in bed no acute distress. Heart is regular rate and rhythm. Lungs sounds are clear. Abdomen is soft and nontender. Neuro exam reveals Parkinson's tremor. Test Results: [] Emergency Department Course and Treatment: Prior to my initial evaluation the nurse had noted the catheter was not secured to his leg and had pulled out slightly. The balloon was deflated, advanced, and balloon reinflated. Yellow urine is draining at this time. Cath secured was placed on his right thigh to keep the catheter from pulling or kinking. Patient be discharged home at this time. Treatment Plan: [] Disposition: Discharge Impression: Flores catheter problem, resolved This note was generated with [employer] dictation software. It may contain incorrect words, spelling, and punctuation that were not noted in review of the chart prior to signing ED Disposition - Plan for ED Patient: Disposition: Home or Assisted Living Instructions: ED Catheter Care Flores Referrals: Sherwin Jorgensen MD [Primary Care Provider] -
== END 2019-01-25 21:50 | disposition home or self-care (01) ==
PROVIDERS: Emergency Provider Emergency Medicine; Family Provider Internal Medicine; PCP Internal Medicine
DX: T83.028A Displacement of other urinary catheter, initial encounter (principal); I48.91 Unspecified atrial fibrillation; I48.92 Unspecified atrial flutter; N18.9 Chronic kidney disease, unspecified; G20 Parkinson's disease; N40.0 Benign prostatic hyperplasia without lower urinary tract symptoms; Z79.899 Other long term (current) drug therapy; Z85.51 Personal history of malignant neoplasm of bladder; Z85.54 Personal history of malignant neoplasm of ureter
CPT/HCPCS: 99282

== ENCOUNTER 2019-01-29 02:57 | Emergency (ER) | payer MEDICARE, SELFPAY ==
[2019-01-29 03:00] VITALS: BP 151/83; PULSE 71; RESP 18; TEMP 36.8; O2SAT 97; BMI 25.8
--- NOTE | 2019-01-29 03:02 | ED.VIS.GEN ---
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 no fevers. no retention. Narrative: Patient seen here earlier in the week for hematuria and had a catheter replaced. Tonight had pain after bending over. Other than bladder spasms which he frequently has, he is asymptomatic. states his UOP was low over a couple hrs, and bleeding started after arrival here in ED. He has had an indwelling Bear for around 2 years. - Past Medical History (1) Atrial fibrillation and flutter Status: Chronic Comment: PAF (2) BPH (benign prostatic hyperplasia) Status: Chronic (3) Bladder cancer Status: Chronic (4) CKD (chronic kidney disease) stage 3, GFR 30-59 ml/min Status: Chronic (5) Parkinsons disease Status: Chronic (6) Single kidney Status: Chronic (7) Ureteral cancer Status: Chronic Past Medical History - Allergies and Home Meds Allergies/Adverse Reactions: Allergies oxycodone [From Percocet] Adverse Reaction (Verified 01/29/19 02:58) hallucination, increased confusion, per family Primary Care Physician: Sherwin Jorgensen MD [Primary Care Provider] - Surgical History: TURP, - - Tonsillectomy, TURP with ureteral intervention and possible stent placement with unclear intervention for prior noted bladder and ureteral cancer, partial plate dental intervention. Lives: Spouse/ Significant Other Smoking Status: Never smoker - Family History Maternal Family History: Reports: Heart Disease, Hypertension, Stroke Paternal Family History: Reports: Heart Disease, Hypertension Review of Systems General: Denies: Chills, Fever, Sweats Gastrointestinal: Reports: Abdominal pain. Denies: Nausea, Vomiting, Diarrhea, Hematochezia Genitourinary: Reports: Hematuria Musculoskeletal: Denies: Back pain, Swelling, Extremity Pain Neurological: Reports: - - tremor. Denies: Headache, Weakness, Numbness Physical Exam Vital Signs/Narrative: Vital Signs Temp Pulse Resp BP Pulse Ox 01/29/19 03:00 98.2 F 71 18 151/83 H 97 Inital Vital Signs reviewed: Yes General: Well nourished, Well developed, No Acute Distress Head: Normocephalic, Atraumatic Respiratory: No distress, Chest nontender Abdomen: Soft, Nondistended, Normal bowel sounds, Tender - mild suprapubic only. Negative for: Guarding, Rebound tenderness : - - blood in proximal bear catheter, transparent yellow urine present in distal bear. Skin: Normal color, No rash, No Trauma Neurological: Alert, Oriented x3, Cranial nerves II-XII grossly intact, Normal Strength, Normal Sensation, - - resting tremor Psychological: Normal affect, Normal Mood Diagnostic/Tx/Re-eval - Medical Decision Making Initially, I attempted to irrigate his 16 Bahraini catheter. We were able to push sterile water into his bladder, but were able to get little of it out, a few blood clots came, but not much. Therefore, nursing replaced the catheter with a 20 Bahraini, had some issues with it draining initially but eventually a clot that was fairly large came out and then the rest of his bladder drained. It was irrigated, and continued to flow, clearing with time. I suspect the hematuria was due to minor trauma. He is currently stable with a flowing catheter and no gross hematuria. He currently is still taking the Bactrim he was placed on earlier in the week, his urine culture returned 50-80,000 colony-forming units of staph sensitive to Bactrim. Advised to follow-up with his urologist. ED Disposition - Plan for ED Patient: Disposition: Home or Assisted Living Diagnosis: Traumatic hematuria, Malfunction of Bear catheter Instructions: ED Hematuria Referrals: Sherwin Jorgensen MD [Primary Care Provider] - Henry Acevedo MD [STAFF PHYSICIAN] - (next week or next scheduled appt if within next 3 weeks.)
[2019-01-29 05:19] VITALS: BP 150/64; PULSE 72; RESP 18; O2SAT 97
== END 2019-01-29 05:19 | disposition home or self-care (01) ==
PROVIDERS: Emergency Provider Emergency Medicine; Family Provider Internal Medicine; PCP Internal Medicine
DX: T83.091A Other mechanical complication of indwelling urethral catheter, initial encounter (principal); R31.9 Hematuria, unspecified; N32.89 Other specified disorders of bladder; I48.0 Paroxysmal atrial fibrillation; I48.92 Unspecified atrial flutter; N18.3 Chronic kidney disease, stage 3 (moderate); G20 Parkinson's disease; N40.0 Benign prostatic hyperplasia without lower urinary tract symptoms; Z79.899 Other long term (current) drug therapy
CPT/HCPCS: 51702; 99285

== ENCOUNTER 2019-03-02 03:33 | Emergency (ER) | payer MEDICARE, SELFPAY ==
[2019-03-02 03:34] VITALS: BP 192/96; PULSE 72; RESP 18; TEMP 36.4; O2SAT 99; BMI 27.8
--- NOTE | 2019-03-02 03:53 | ED.DCSUM_ITS ---
- ER Visit Summary Date of Service: 03/02/19 Chief Complaint: Urinary retention History of Present Illness: The patient is a 78 M with chronic indwelling Flores presents to the emergency department with urinary retention. Patient has a [address] He does have recurrent urinary retention. He has had his Flores changed yesterday. Tonight, he noticed diminished urine output starting about 11 PM. He states he began to have some abdominal fullness and tenderness. The patient is active with hospice. He denies any fevers or chills. He is not on any antibiotics. Physical Examination: Exam is relatively unremarkable. Patient does have some suprapubic fullness. There is no tenderness. Catheter is in place. There is minimal drainage in the bag. Test Results: [] Emergency Department Course and Treatment: The Flores was attempted to be irrigated to no avail. Because of this, the catheter was changed. A 22 English was placed. The old Flores catheter was actually shallow as if it was not fully in the bladder. The balloon also only had 3 cc of saline in it. Once it was removed and the catheter was changed, the patient had 1200 cc of clear urine out. Given the recurrent manipulation, I am going to place him on prophylactic Bactrim as I did review his prior cultures and is been sensitive to this. He will be placed on this for 5 days total. Family is comfortable with this plan of care. He will be discharged. Treatment Plan: [] Disposition: Discharge Impression: 1. Urinary retention secondary to Flores catheter obstruction This note was generated with [employer] dictation software. It may contain incorrect words, spelling, and punctuation that were not noted in review of the chart prior to signing ED Disposition - Plan for ED Patient: Instructions: Discharge Instructions: Caring for Your Indwelling Urinary Catheter Prescriptions: Smz/Tmp Ds [Bactrim Ds] 1 tab PO BID #10 tab Referrals: Sherwin Jorgensen MD [Primary Care Provider] -
--- NOTE | 2019-03-02 04:39 | NURSING ---
MALDONADO CATH REMOVED AND REPLACED W/22 TURKISH. PATENT AND DRAINING AT THIS TIME. PT LUZ WELL.
[2019-03-02] MEDS: Smz/Tmp Ds Tablet 1 TABLET PO (04:43)
--- NOTE | 2019-03-02 05:20 | ED.RN ---
THIS NURSE SPOKE WITH PROGRAM MANAGEMENT SPECIALIST NURSE FROM [facility], ATTEMPTING TO FIND A WAY TO HELP THE PT GET HOME
[2019-03-02 06:45] VITALS: BP 189/98; PULSE 72; RESP 20; O2SAT 96
--- NOTE | 2019-03-02 16:00 | CM.ED ---
Addendum entered by Louise Ramos 03/10/19 13:55: RECEIVED CALL BACK FROM PATIENT'S . APOLOGIZED FOR NOT GETTING BACK TO THIS WORKER SOONER. PER , HAS SOME ASSISTANCE IN THE HOME, TRANSPORTATION DOES REMAIN AN ISSUE. SOME OPTIONS DISCUSSED. REPORTS PATIENT IS HOMEBOUND AND ON HOSPICE. [facility] WAS OUT TO THE HOUSE FOR AN ASSESSMENT AND UNSURE IF WILL BE ABLE TO ASSIST WITH SERVICES. THANKED THIS WORKER AND DR. PIMENTEL FOR CARING ABOUT THEM. EMOTIONAL SUPPORT PROVIDED. DENIES ANY FURTHER NEEDS AT THIS TIME. Original Note: SOCIAL WORK RECEIVED ORDER FOR CONSULT D/T TRANSPORTATION ISSUES AND LIMITED SUPPORT BY DR. PIMENTEL. PATIENT WAS IN THE EMERGENCY DEPARTMENT EARLY THIS MORNING AND DISCHARGED BEFORE EQUIP MAINT ENG COULD ASSESS. CALL TO PATIENT AND PATIENT'S TO DISCUSS NEEDS. NO ANSWER, LEFT MESSAGE WITH THIS WORKER'S CALL BACK INFORMATION. LOUISE RAMOS, FOREIGN DIPLOMAT, PUBLISHING SYSTEMS ANALYST.
== END 2019-03-02 06:40 | disposition home or self-care (01) ==
PROVIDERS: Emergency Provider Emergency Medicine; Family Provider Internal Medicine; PCP Internal Medicine
DX: T83.098A Other mechanical complication of other urinary catheter, initial encounter (principal); R33.9 Retention of urine, unspecified; G20 Parkinson's disease; F02.80 Dementia in other diseases classified elsewhere, unspecified severity, without behavioral disturbance, psychotic disturbance, mood disturbance, and anxiety; Z79.899 Other long term (current) drug therapy
CPT/HCPCS: 51702; 99283

== ENCOUNTER 2019-04-21 17:38 | Inpatient (IN) | payer MEDICARE, SELFPAY ==
[2019-04-21 17:39] VITALS: BP 135/85; PULSE 76; RESP 18; TEMP 37.6; O2SAT 98; BMI 24.7
[2019-04-21] MEDS: 0.9% Normal Saline 1,000 ML 999 ML IV (18:15)
[2019-04-21 18:25] LABS: Absolute Lymphocyte Count 1.22 X10^3/ul (0.83-4.51); Basophil# 0.01 X10^3/uL; Basophil% 0.1 % (0-1); Eosinophil# 0.01 X10^3/uL; Eosinophils% 0.1 % (0-5); Hematocrit 34.9 % (40-54); Hemoglobin 11.7 g/dl (13.0-16.5); Lymphocyte # 1.22 X10^3/ul (4.0); Lymphocyte % 7.1 % (19-41); Mean Corp Hgb Conc 33.5 g/gl (32-36); Mean Corpuscular Volume 92.6 fL (80-94); Mean Platelet Vol. 10.6 fl (6.2-12.0); Monocyte# 1.86 X10^3/uL; Monocyte% 10.9 % (0-10); Neutrophil % 81.6 % (47-70); Platelet Count 219 K/mm3 (150-450); RBC Distribution Width CV 14.2 % (11.6-14.6); Red Blood Count 3.77 M/mm3 (4.6-6.2); White Blood Count 17.1 K/mm3 (4.4-11.0)
[2019-04-21 18:32] LABS: Differential Indicated SCAN CRITERIA MET; POSITIVE COUNT NO; POSITIVE DIFFERENTIAL YES; POSITIVE MORPHOLOGY NO
--- NOTE | 2019-04-21 18:34 | ED.RN ---
pt with indwelling bear catheter on arrival to ed.
[2019-04-21 18:35] LABS: Anion Gap 4 (5-15); BUN 22 mg/dL (7-18); BUN/Creat Ratio 14.4 RATIO (10-20); Calcium,Total 8.8 mg/dL (8.5-10.1); Chloride 108 mmol/L (98-107); Creatinine, Serum 1.53 mg/dL (0.70-1.30); EST Glomerular Filtration Rate 47 mL/min (>60); Est Glom Filt Rate - Afr Amer 57 mL/min (>60); Estimated Creatinine Clearance 41.09 ml/min; Glucose 95 mg/dL (74-106); Potassium 3.9 mmol/L (3.5-5.1); Sodium Level 139 mmol/L (136-145)
[2019-04-21 18:40] LABS: Mucous, Urine 0 SEEN /hpf (<or=2+)
[2019-04-21 18:42] LABS: Differential Comment SCANNED
[2019-04-21 18:43] LABS: Color, Urine Yellow (Yellow); Glucose, Dipstick Normal (Normal); Ketone-Dipstick 50 mg/dl (Negative); Leukocyte Esterase-Dipstick 500 /ul (Negative); Nitrite-Dipstick Positive (Negative); Occult Blood-Urine 25 /ul (Negative); Protein-Dipstick 30 mg/dl (Negative); Specific Gravity, Urine 1.015 (1.002-1.030); Urine Bilirubin Dipstick Negative (Negative); Urine Clarity Cloudy (Clear); Urine Urobilinogen Normal (Normal)
[2019-04-21 18:52] LABS: Amorphous Sediment 1+ URATE; Bacteria 1+ /hpf (None Seen); Red Blood Cells-Urine 0-5 SEEN /hpf (0-5); Squamous Epithelial Cells - UA 0-5 SEEN /hpf (0-5); White Blood Cells 25-50 SEEN /hpf (0-5)
--- NOTE | 2019-04-21 19:54 | ED.DCSUM_ITS ---
- ER Visit Summary Date of Service: 04/21/19 Chief Complaint: Weakness History of Present Illness: The patient is a 78 M who presents with weakness. Patient has fallen at home a couple of times over the past couple of days. He has not injured himself. He has not been walking as much as normal recently. His is concerned about dehydration. He is not eating and drinking well. He has a history of Parkinson's and normally ambulate with a walker but has not done much of this recently. He is in hospice. He has a chronic Flores catheter due to bladder cancer. He also has atrial fib and flutter. Physical Examination: Vital signs are reviewed. HEENT exam unremarkable. Heart is regular rate and rhythm. Lungs are clear to auscultation. Abdomen is soft and nontender. He has a Flores catheter in place. He has diffuse overall weakness. He has no other neurologic deficits. He has no rashes. Test Results: White blood cell count 17.1, hemoglobin 11.7. Creatinine is 1.51 which is baseline. Urinalysis is positive for infection Emergency Department Course and Treatment: The patient ambulated fine but he had difficulties getting into a standing position. The is concerned about getting him home and him falling again. I feel he should stay and get antibiotics. I discussed this with the hospitalist. Treatment Plan: [] Disposition: Admit Impression: UTI, weakness This note was generated with [employer] dictation software. It may contain incorrect words, spelling, and punctuation that were not noted in review of the chart prior to signing ED Disposition - Plan for ED Patient: Referrals: Sherwin Jorgensen MD [Primary Care Provider] -
--- NOTE | 2019-04-21 20:30 | CM.ED ---
Social Work Assessment Referral Date: 04/21/19 Date of Assessment: 04/21/19 Informant: DR. KEARNEY Reason for Consult: DISCHARGE PLANNING/RESOURCES Information obtained from: PATIENT'S , AGUSTIN DALTON Living Arrangements: PATIENT LIVES HOME WITH . IS MAIN CAREGIVER DME: WALKER, SHOWER CHAIR, BSC Employment/Financial: RETIRED/LIMITED INCOME. BELIEVES PATIENT IS OVER-INCOME FOR MEDICAID. HAS LOOKED INTO PASSPORT SERVICES. Supports: [facility]- [phone], [employer] Social/Family Stressors: STATES IS MAIN CAREGIVER FOR PATIENT AND WOULD BENEFIT FROM MORE ASSISTANCE IN THE HOME. DOES NOT WISH FOR PATIENT TO GO TO A LONG TERM. STATES MOTORCYCLE SERVICE TECHNICIAN FROM [facility] COMPLETED ASSESSMENT AND SHE NEVER HEARD BACK REGARDING RESULTS OF ASSESSMENT. TRANSPORTATION ISSUES. Interventions: SOCIAL SERVICE ASSESSMENT EDUCATION ON PRIVATE DUTY AIDES Assessment: PATIENT IS A 78 Y/O MALE WHO LIVES HOME WITH AND IS UNDER HOSPICE CARE THROUGH [facility]. REPORTS AIDE FROM HOSPICE IS IN THE HOME 3 DAYS/WEEK FOR BATHING. STATES PATIENT HAS BEEN MORE WEAK AND WAS UNABLE TO WALK TODAY. STATES PATIENT FELL THIS MORNING AND CALLED [facility] TO ASSIST. REPORTS SPOKE WITH [facility] BEFORE COMING IN AND INFORMED THEM SHE WOULD BE HAVING PATIENT COME TO THE HOSPITAL. DISCUSSED OPTIONS FOR MORE ASSISTANCE IN THE HOME AND LONG TERM PLACEMENT. DOES NOT WISH FOR PATIENT TO GO TO NURSING. STATES [facility] WAS OUT TO COMPLETE ASSESSMENT AND IS UNSURE OF RESULTS. BELIEVES THEY ARE OVER INCOME FOR MEDICAID. INFORMED WE WILL FOLLOW UP WITH [facility] TOMORROW. CASE DISCUSSED WITH DR. KEARNEY. ANTICIPATE ADMISSION. PLAN: ADMIT
[2019-04-21] MEDS: Ceftriaxone 1 GM/50 ML BAG IV (20:33)
--- NOTE | 2019-04-21 20:39 | HP.PCM_ITS ---
Problem List (1) CKD (chronic kidney disease) stage 3, GFR 30-59 ml/min Status: Chronic (2) BPH (benign prostatic hyperplasia) Status: Chronic Qualifiers: (3) Atrial fibrillation and flutter Status: Chronic Comment: PAF (4) Bladder cancer Status: Chronic Qualifiers: (5) Ureteral cancer Status: Chronic Qualifiers: (6) Parkinsons disease Status: Chronic History of Present Illness Date of Admission: 04/21/19 Chief Complaint: Weakness, fall. The patient is a 78 year old M with past medical history as mentioned above presented to the emergency room because of weakness and fall. The patient had a history of Parkinson's disease and dementia and he was able to answer direct questions. Patient's was at the bedside and according to her, patient woke up this morning, felt very weak, fell and he was not able to get up and she was not able to help him as well. She mentioned that that is not usual for him and usually, he is able to ambulate at home. She did not report any recent sickness. Patient denied abdominal pain, nausea or vomiting. He denied chest pain or shortness of breath. He denied cough or sputum production. He denies fever or chills. The mentioned that he has been hot all day today but she did not check his temperature. He has history of paroxysmal atrial fibrillation, has been on amiodarone for rate control and not on anticoagul ation. 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 He had chronic indwelling Flores catheter with history of recurrent UTIs. History of Parkinson's disease and he has been on Sinemet and he has been having issues with dementia as well. In the emergency department, maximum temperature was 99.6, other vital signs were stable. Routine blood work was remarkable for leukocytosis, hemoglobin of 11.7 g/dL which is chronic, BUN of 22 and creatinine of 1.53 which are also chronic. Urinalysis revealed cloudy urine, positive for nitrite and leukocytes esterase, there was 25-50 RBCs and 1+ bacteria. He is being admitted for acute cystitis in context of history of chronic indwelling Flores catheter and recurrent UTI. Past Medical History Past Medical History (Chronic Problems): Chronic Problems CKD (chronic kidney disease) stage 3, GFR 30-59 ml/min (Chronic) BPH (benign prostatic hyperplasia) (Chronic) S/P TURP (Chronic) Atrial fibrillation and flutter (Chronic) PAF Bladder cancer (Chronic) Ureteral cancer (Chronic) Single kidney (Chronic) Parkinsons disease (Chronic) Allergies oxycodone [From Percocet] Adverse Reaction (Verified 04/21/19 17:44) hallucination, increased confusion, per family Home Medications: Ambulatory Orders Medication Instructions Recorded Carbidopa/Levodopa [Sinemet Cr 2 each PO TID 02/04/14 25-100 Tablet] Finasteride [Proscar] 5 mg PO DAILY 05/29/17 Melatonin 3 mg PO QHS 07/09/18 Multivitamin [Multiple Vitamins] 1 each PO DAILY 07/09/18 Ropinirole HCl 0.5 mg PO BID 10/29/18 traZODone [Desyrel] 50 mg PO QHS 10/29/18 Amiodarone HCl 200 mg PO DAILY 12/04/18 Pantoprazole Sodium [Protonix] 40 mg PO DAILY 12/04/18 Methenamine Hippurate [Hiprex] 1 gm PO DAILY 04/21/19 Surgical History: TURP, - - Tonsillectomy, TURP with ureteral intervention and possible stent placement with unclear intervention for prior noted bladder and ureteral cancer, partial plate dental intervention. Psychiatric History: No pertinent psych hx Lives: Spouse/ Significant Other Smoking Status: Never smoker Alcohol: None Drugs: None - *Family History Maternal History Items: Heart Disease, Hypertension, Stroke Paternal History Items: Heart Disease, Hypertension Review of Systems Constitutional: Reports: Anorexia, Weakness, Fatigue. Denies: Chills, Fever Eyes: Denies: Blurred vision, Double vision, Drainage, Redness HEENT: Denies: Difficulty Hearing, Ear Pain, Eye Pain, Nasal Congestion, Sore Throat Cardiovascular: Denies: Chest Pain, Chest Pressure, Chest Tightness, Heaviness, Light Headedness, Palpitations, Syncope Respiratory: Denies: Cough, Hemoptysis, Pleuritic Pain, Shortness of Breath, Sputum production, Wheezing Gastrointestinal: Denies: Abdominal Pain, Constipation, Diarrhea, Nausea, Vomiting Genitourinary: Denies: Dysuria, Frequency, Hematuria Musculoskeletal: Denies: Arm Pain, Back Pain, Foot Pain Skin: Denies: Dryness, Rash Neurological: Denies: Balance problems, Double vision, Change in Speech, Slurred speech, Focal weakness, Headaches, Incoordination, Numbness Psychiatric: Denies: Anxiety, Depression Endocrine: Denies: Heat/ Cold Intolerance, Polydipsia, Polyuria VTE Information - Inpt Only VTE Present on Admission: No VTE Mechan Device Prophylaxis: None VTE Pharm Prophylaxis ordered?: Yes - Physical Exam General: Alert, Oriented x3, Cooperative, No apparent distress HEENT: Atraumatic, PERRLA, EOMI, Normocephalic Oral: No Gingival or Mucosal Lesions/ Ulcerations, Dry Mucosa Neck: Supple, No JVD, Negative Carotid Bruits, Trachea Midline, Thyroid Normal Size and Texture Lungs: Clear to auscultation, Normal air movement, No rhonchi, No wheeze, No rales, Diminished Cardiovascular: Regular rate, Regular Rhythm, Normal S1, Normal S2, PMI Normal Abdomen: Bowel Sounds Present, Soft, Non Tender, Non-Distended, No Hepato- splenomegaly Extremities: No clubbing, No cyanosis, Edema Skin: No rashes, No breakdown Lymphatic: No Cervical, Supraclavicular, or Inguinal Adenopathy Neurological: Cranial nerves II-XII grossly intact, Motor Exam 5/5 strength throughout Psych/Mental Status: Normal Affect, Appropriate Vital Signs Temp Pulse Resp BP Pulse Ox 99.6 F H 76 18 135/85 H 98 04/21/19 17:39 04/21/19 17:39 04/21/19 17:39 04/21/19 17:39 04/21/19 17:39 Oxygen Delivery Method Room Air Weight: 172 lb Body Mass Index (BMI) 24.7 Laboratory Tests Past 24 Hrs 04/21/19 04/21/19 04/21/19 18:14 18:14 18:30 WBC 17.1 H RBC 3.77 L Hgb 11.7 L Hct 34.9 L MCV 92.6 MCH 31.0 MCHC 33.5 RDW 14.2 RDW Differential 48.0 H Plt Count 219 MPV 10.6 Immature Gran % (Auto) 0.200 Neut % (Auto) 81.6 H Lymph % (Auto) 7.1 L [place] % (Auto) 10.9 H Eos % (Auto) 0.1 Baso % (Auto) 0.1 Absolute Neuts (auto) 14.0 H Absolute Lymphs (auto) 1.22 Total Counted Not Reportable Differential Comment SCANNED Diff Path Review February Sodium 139 Potassium 3.9 Chloride 108 H Carbon Dioxide 27.0 Anion Gap 4 L BUN 22 H Creatinine 1.53 H Estim Creat Clear Calc 41.09 Est GFR (MDRD) Af Amer 57 L Est GFR (MDRD) Non-Af 47 L BUN/Creatinine Ratio 14.4 Glucose 95 Calcium 8.8 Urine Color Yellow Urine Clarity Cloudy Urine pH 5.0 Ur Specific [place] 1.015 Urine Protein 30 H Urine Glucose (UA) Normal Urine Ketones 50 H Urine Occult Blood 25 H Urine Nitrite Positive H Urine Bilirubin Negative Urine Urobilinogen Normal Ur Leukocyte Esterase 500 H Urine RBC 0-5 SEEN Urine WBC 25-50 SEEN Ur Squamous Epith Cells 0-5 SEEN Amorphous Sediment 1+ URATE Urine Bacteria 1+ Urine Mucus 0 SEEN Assessment/Plan This is a 78 years old male patient presented to the emergency room because of weakness and fall without evidence of injury, found to have acute cystitis in context of history of chronic indwelling Flores catheter with recurrent UTI and he is being admitted for treatment. #1 acute cystitis: Related to history of chronic indwelling Flores catheter due to history of bladder cancer status post surgery and right ureteral stent placement, patient has history of recurrent UTI in the past. His vital signs are stable, temperature is 91.6. He does have leukocytosis, no evidence of sepsis or severe sepsis. Routine blood work reviewed. Plan: Admit to MedSurg floor, gentle IV fluids for hydration, input output chart, blood culture, urine culture, start IV ciprofloxacin based on previous urine cultures that was positive for Staphylococcus warneri, Enterobacter and Pseudomonas, replace Flores catheter as it is due to be replaced tomorrow, Tylenol as needed, Zofran as needed, repeat CBC and BMP tomorrow morning, PT OT evaluation and treatment. #2 history of bladder cancer/ureteral cancer: Status post TURBT and right ureteral stent placement. Patient's stated that he never was told that he had bladder cancer, never received chemotherapy but he went for surgery in 2017 at [facility] with urology. I reviewed the patient's chart and I did found that patient had bladder cancer as well as ureteral cancer status post TURBT and stent placement back in 2017 at [facility]. I went back to the patient and I informed her that I reviewed his chart and I did found that he had bladder and urethral cancer and he had surgery done for that cancer with stent placement to the right ureter. #3 paroxysmal atrial fibrillation: Rate is controlled, blood pressure stable, continue amiodarone. He is not on anticoagulant. #4 stage III chronic kidney disease: Baseline creatinine around 1.3 to 1.7 mg seizure. Patient has single kidney. Admission creatinine is 1.53, stable at baseline. #5 benign prostatic hypertrophy/chronic indwelling Flores catheter: Change Flores catheter, continue Proscar and methenamine. #6 Parkinson's disease/probable dementia: Stable, continue Sinemet and trazodone. #7 DVT prophylaxis: Subcu heparin. Note: I spoke with the patient himself and his about the CODE STATUS. The patient's mentioned that he wants him to be brought back if he went into cardiac arrest or respiratory failure. I redirected my question to the patient himself and he replied that he does not want any resuscitation, no intubation or mechanical ventilation. The patient's started crying. The patient is alert and vomiting x3 and he seemed to competent to take his own decision. I explained to her that she should talk to her about his CODE STATUS. This note was generated with [employer] dictation software. It may contain incorrect words, spelling, and punctuation that were not noted in checking the note before signing. Code Visit Inpatient E&M: 35195 Init Hosp L3
[2019-04-21 20:47] VITALS: BMI 25.1
[2019-04-21 20:48] VITALS: BP 131/60; PULSE 69; RESP 16; TEMP 36.6; O2SAT 100
[2019-04-21 21:00] VITALS: PULSE 69
--- NOTE | 2019-04-21 21:04 | RAD_ITS ---
STUDY: X-RAY CHEST REASON FOR EXAM: Male, 78 years old. Fever, cystitis TECHNIQUE: Frontal view COMPARISON: July 09, 2018 FINDINGS: The lungs are expanded. Right pulmonary infiltrates are noted. Borderline size heart. Normal mediastinum. Left hilar calcifications. Normal visualized pulmonary arteries. Normal visualized aortic arch and descending thoracic aorta. Degenerative changes of the thoracic spine. Normal visualized ribs, clavicles, and shoulders. There is no demonstrated abnormality of the visualized soft tissue structures of the upper abdomen. RAD/Chest 1 View (Portable) IMPRESSION: Right pulmonary infiltrates. Electronically Signed: Ever Ma DO at 21:55 EDT Tel [phone], Service support ,
[2019-04-21] MEDS: Ciprofloxacin 400 MG/200 ML BAG 200 MG IV (22:19)
[2019-04-21] MEDS: MELATONIN 3 MG TABLET PO (22:20)
[2019-04-21] MEDS: Carbidopa/Levodopa 25/100 Tablet PO (22:20)
[2019-04-21] MEDS: Pramipexole Di-HCl 0.25 MG Tablet PO (22:21)
[2019-04-21] MEDS: traZODone 50 MG Tablet PO (22:25)
[2019-04-21] MEDS: 0.9% Normal Saline 1,000 ML 75 ML IV (22:29)
[2019-04-21] MEDS: Heparin Injection (Vial) 5,000 UNIT/ML VIAL 5000 UNIT SC (22:35)
[2019-04-21 22:50] VITALS: O2SAT 98
[2019-04-22 02:13] VITALS: BP 121/58; PULSE 70; RESP 16; TEMP 36.9; O2SAT 100
[2019-04-22 02:18] VITALS: PULSE 63
[2019-04-22] MEDS: Heparin Injection (Vial) 5,000 UNIT/ML VIAL 5000 UNIT SC ×3 (06:19→21:44)
[2019-04-22] MEDS: Carbidopa/Levodopa 25/100 Tablet PO ×3 (06:19→17:52)
[2019-04-22 06:20] LABS: Anion Gap 8 (5-15); BUN 22 mg/dL (7-18); BUN/Creat Ratio 16.8 RATIO (10-20); Calcium,Total 8.3 mg/dL (8.5-10.1); Chloride 109 mmol/L (98-107); Creatinine, Serum 1.31 mg/dL (0.70-1.30); EST Glomerular Filtration Rate 56 mL/min (>60); Est Glom Filt Rate - Afr Amer 68 mL/min (>60); Estimated Creatinine Clearance 47.99 ml/min; Glucose 97 mg/dL (74-106); Potassium 3.9 mmol/L (3.5-5.1); Sodium Level 142 mmol/L (136-145)
[2019-04-22 06:29] LABS: Absolute Lymphocyte Count 1.16 X10^3/ul (0.83-4.51); Absolute Neutrophil Count 9.4 X10^3/uL (2.0-7.7); Basophil# 0.01 X10^3/uL; Basophil% 0.1 % (0-1); Eosinophil# 0.05 X10^3/uL; Eosinophils% 0.4 % (0-5); Hematocrit 30.9 % (40-54); Hemoglobin 10.2 g/dl (13.0-16.5); Lymphocyte # 1.16 X10^3/ul (4.0); Lymphocyte % 9.5 % (19-41); Mean Corpuscular Hgb 30.8 pg (27.0-32.0); Mean Corpuscular Volume 93.4 fL (80-94); Mean Platelet Vol. 10.8 fl (6.2-12.0); Neutrophil # 9.41 X10^3/uL (2.7-7.7); Neutrophil % 76.7 % (47-70); Platelet Count 184 K/mm3 (150-450); RBC Distribution Width SD 46.1 fl (35.1-43.9); Red Blood Count 3.31 M/mm3 (4.6-6.2); White Blood Count 12.3 K/mm3 (4.4-11.0)
[2019-04-22 06:36] LABS: Differential Indicated SCAN CRITERIA MET; POSITIVE COUNT NO; POSITIVE DIFFERENTIAL YES; POSITIVE MORPHOLOGY NO
[2019-04-22 06:41] LABS: Differential Comment SCANNED
[2019-04-22 07:30] VITALS: O2SAT 92
[2019-04-22 08:36] VITALS: BP 120/69; PULSE 58; RESP 22; TEMP 36.9; O2SAT 92
[2019-04-22] MEDS: Ceftriaxone 1 GM/50 ML BAG IV (08:44)
[2019-04-22] MEDS: 0.9% Normal Saline 1,000 ML 75 ML IV (08:46)
--- NOTE | 2019-04-22 09:12 | CASEMGMT ---
Addendum entered by Mary Maher 04/22/19 10:12: STEWART placed a call to [facility] and spoke with Megan. Megan states the last time pt has any services through [facility] was 2015 and states there are no current visits from [facility] for pt. Megan states if pt wants another referral, pt will need to call and make referral to resource center. Green sheet on chart for weekend discharge. Original Note: Social Work Note STEWART received a call from Mary with [facility]. Mary states pt is still on their caseload under pt's Parkinson's diagnosis and is good to resume services once pt is discharged. Mary asked that she be called and discharge orders be faxed once pt is discharged. . Mary asked this worker about how to get a contract with the Hospital. STEWART provided Austin Marino, social work nurse, direct number and encouraged Mary to speak to her. Mary states understanding. Mary Maher TANK PUMPER PANELBOARD, HOOKER OPERATOR
[2019-04-22] MEDS: Pantoprazole Sodium 40 MG Tablet PO (10:07)
[2019-04-22] MEDS: METHENAMINE HIPPURATE 1 GM TABLET PO (10:08)
[2019-04-22] MEDS: Pramipexole Di-HCl 0.25 MG Tablet PO ×2 (10:08→21:44)
[2019-04-22] MEDS: Finasteride 5 MG Tablet PO (10:08)
[2019-04-22] MEDS: Amiodarone 200 MG Tablet PO (10:12)
--- NOTE | 2019-04-22 10:46 | PN_ITS ---
Subjective: Patient was seen and examined. He feels improved. No fever or chills. Denies SOB or chest pain. Appears to be at his baseline. Objective: Physical Exam General: Alert, Oriented x3, Cooperative, No apparent distress HEENT: Atraumatic, PERRLA, EOMI, Normocephalic Oral: No Gingival or Mucosal Lesions/ Ulcerations, Dry Mucosa Neck: Supple, No JVD, Negative Carotid Bruits, Trachea Midline, Thyroid Normal Size and Texture Lungs: Clear to auscultation, Normal air movement, No rhonchi, No wheeze, No rales, Diminished Cardiovascular: Regular rate, Regular Rhythm, Normal S1, Normal S2, PMI Normal Abdomen: Bowel Sounds Present, Soft, Non Tender, Non-Distended, No Hepato- splenomegaly Extremities: No clubbing, No cyanosis, Edema Skin: No rashes, No breakdown Lymphatic: No Cervical, Supraclavicular, or Inguinal Adenopathy Neurological: Cranial nerves II-XII grossly intact, Motor Exam 5/5 strength throughout Psych/Mental Status: Normal Affect, Appropriate Vitals/I&O's: Vital Signs Temp Pulse Resp BP Pulse Ox 98.5 F 58 L 22 H 120/69 92 04/22/19 08:36 04/22/19 08:36 04/22/19 08:36 04/22/19 08:36 04/22/19 08:36 Oxygen Delivery Method Room Air Weight: 79.4 kg Body Mass Index (BMI) 25.1 Intake and Output for Last 24 Hours 04/20/19 04/21/19 04/22/19 23:59 23:59 23:59 Intake Total 1425 / 1425 Output Total 250 / 250 Balance 1175 / 1175 Laboratory Results 04/21/19 18:14: WBC 17.1 H, RBC 3.77 L, Hgb 11.7 L, Hct 34.9 L, MCV 92.6, MCH 31.0, MCHC 33.5, RDW 14.2, RDW Differential 48.0 H, Plt Count 219, MPV 10.6, Immature Gran % (Auto) 0.200, Neut % (Auto) 81.6 H, Lymph % (Auto) 7.1 L, Bertie % (Auto) 10.9 H, Eos % (Auto) 0.1, Baso % (Auto) 0.1, Absolute Neuts (auto) 14.0 H , Absolute Lymphs (auto) 1.22, Total Counted Not Reportable, Differential Comment SCANNED, Diff Path Review February [facility] 04/21/19 18:14: Sodium 139, Potassium 3.9, Chloride 108 H, Carbon Dioxide 27.0, Anion Gap 4 L, BUN 22 H, Creatinine 1.53 H, Estim Creat Clear Calc 41.09, Est GFR (MDRD) Af Amer 57 L, Est GFR (MDRD) Non-Af 47 L, BUN/Creatinine Ratio 14.4, Glucose 95, Calcium 8.8 04/21/19 18:30: Urine Color Yellow, Urine Clarity Cloudy, Urine pH 5.0, Ur Specific [place] 1.015, Urine Protein 30 H, Urine Glucose (UA) Normal, Urine Ketones 50 H, Urine Occult Blood 25 H, Urine Nitrite Positive H, Urine Bilirubin Negative, Urine Urobilinogen Normal, Ur Leukocyte Esterase 500 H, Urine RBC 0-5 SEEN, Urine WBC 25-50 SEEN, Ur Squamous Epith Cells 0-5 SEEN, Amorphous Sediment 1+ URATE, Urine Bacteria 1+, Urine Mucus 0 SEEN 04/22/19 05:40: WBC 12.3 H, RBC 3.31 L, Hgb 10.2 L, Hct 30.9 L, MCV 93.4, MCH 30.8, MCHC 33.0, RDW 14.0, RDW Differential 46.1 H, Plt Count 184, MPV 10.8, Immature Gran % (Auto) 0.300, Neut % (Auto) 76.7 H, Lymph % (Auto) 9.5 L, Bertie % (Auto) 13.0 H, Eos % (Auto) 0.4, Baso % (Auto) 0.1, Absolute Neuts (auto) 9.4 H, Absolute Lymphs (auto) 1.16, Total Counted Not Reportable, Differential Comment SCANNED, Diff Path Review February [facility] 04/22/19 05:40: Sodium 142, Potassium 3.9, Chloride 109 H, Carbon Dioxide 25.0, Anion Gap 8, BUN 22 H, Creatinine 1.31 H, Estim Creat Clear Calc 47.99, Est GFR (MDRD) Af Amer 68, Est GFR (MDRD) Non-Af 56 L, BUN/Creatinine Ratio 16.8, Glucose 97, Calcium 8.3 L Current Medications Acetaminophen (Tylenol) 650 mg PO Q6H PRN PRN PRN Reason: Mild Pain (1-3)/Temp > 100.7 F Amiodarone HCl (Cordarone) 200 mg PO DAILY [facility] Last Admin: 04/22/19 10:12 Dose: 200 mg Documented by: Carbidopa/Levodopa (Sinemet) 2 tablet PO TIDAC [facility] Last Admin: 04/22/19 10:07 Dose: 2 tablet Documented by: Finasteride (Proscar) 5 mg PO DAILY [facility] Last Admin: 04/22/19 10:08 Dose: 5 mg Documented by: Heparin Sodium (Porcine) (Heparin Na) 5,000 unit SC Q8 [facility] Last Admin: 04/22/19 06:19 Dose: 5,000 unit Documented by: Ceftriaxone Sodium (Rocephin) 1 gm in 50 mls @ 100 mls/hr IV Q24H [facility] Last Admin: 04/22/19 08:44 Dose: 100 mls/hr Documented by: Azithromycin 500 mg/ Dextrose 255 mls @ 250 mls/hr IV Q24 [facility] Last Admin: 04/22/19 10:12 Dose: 250 mls/hr Documented by: Sodium Chloride () 1,000 mls @ 75 mls/hr IV .[id number] [facility] Stop: 04/23/19 06:44 Melatonin (Melatonin) 3 mg PO QHS [facility] Last Admin: 04/21/19 22:20 Dose: 3 mg Documented by: Methenamine Hippurate (Hiprex) 1 gm PO DAILY [facility] Last Admin: 04/22/19 10:08 Dose: 1 gm Documented by: Nutritional Formula (Lactose Free) (Ensure Enlive) 120 ml PO 4X/DAY [facility] Last Admin: 04/22/19 10:09 Dose: Not Given Documented by: Ondansetron HCl (Zofran) 4 mg IV Q8H PRN PRN PRN Reason: NAUSEA/VOMITING Pantoprazole Sodium (Protonix) 40 mg PO DAILY [facility] Last Admin: 04/22/19 10:07 Dose: 40 mg Documented by: Pramipexole Dihydrochloride (Mirapex) 0.25 mg PO BID [facility] Last Admin: 04/22/19 10:08 Dose: 0.25 mg Documented by: Sodium Chloride () 10 - 40 ml IV UD PRN PRN Reason: SALINE FLUSH Trazodone HCl (Desyrel) 50 mg PO QHS [facility] Last Admin: 04/21/19 22:25 Dose: 50 mg Documented by: Medical Necessity - Tobacco Use Smoking Status: Former smoker Assessment/Plan 78-year-old male with past medical history of bladder CA status post surgery, status post right ureteral stent placement, history of recurrent UTIs, in hospice comes in with complaints of weakness in recurrent falls. 1. Acute cystitis, complicated, history of chronic indwelling Flores catheter, history of recurrent UTIs, and IV antibiotics, urine culture pending, continue to monitor 2. Infiltrates noted on x-ray on admission, repeat X-ray shows atelectasis, will continue on IV ceftriaxone for UTI. Encourage use of incentive spirometer 3. Paroxysmal atrial fibrillation, rate controlled, on amiodarone, off anticoagulation 4. CKD stage III, at baseline 5. BPH, history of bladder CA, started with chronic indwelling Flores catheter, in Hospice 6. Parkinson's disease with dementia, at baseline, continue home Sinemet and trazodone 7. DVT PPx- Heparin SC 8. Disposition: DC in am home with hospice Code Visit Inpatient E&M: 24370 Subs Hosp L2
--- NOTE | 2019-04-22 11:20 | RAD_ITS ---
STUDY: X-RAY CHEST REASON FOR EXAM: Male, 78 years old. TECHNIQUE: 3 views COMPARISON: April 21, 2019 FINDINGS: There is now noted linear atelectasis in the right base with heavy markings but no evidence of pleural effusion or pneumothorax otherwise the mid and upper lung avila are clear. The cardiac silhouette is not enlarged. There is tortuosity of the thoracic aorta. There is increase in the thoracic kyphosis with some osteoporosis. Blunting of the costophrenic angle seen posteriorly. The bony thorax is intact RAD/Chest PA and Lateral IMPRESSION: Linear atelectasis right base with blunting of the costophrenic angle posteriorly. Electronically Signed: Elvie Davies, at 12:22 EDT Tel , Service support ,
--- NOTE | 2019-04-22 13:20 | CASEMGMT ---
Social Work Note SW met with pt and pt's Amberly Beal. SW introduced self and role at [facility]. Pt is alert and orientated x3, pt's Amberly Beal did do most of the talking during interaction. Amberly Beal confirmed that pt is currently active with [facility] and the plan is for pt to return home with Hospice services. Amberly Beal states pt is too weak to return home at this time. STEWART asked Amberly Beal about pt going to SNF for rehab and then returning home with Hospice and Amberly Beal stated pt was not going to a SNF. SW informed Amberly Beal that this worker call [facility] and per staff at [facility], last note they had on pt was from 2016. Amberly Beal states [facility] was just at their house last year. SW encouraged Amberly Beal to call [facility] and speak with staff. SW provided number for [facility]. SW also educate Amberly Beal on private duty aides and Amberly Beal states they can't afford private duty aides or SNF. Amberly Beal asked about Parkinson's walker and smaller wheelchair. SW informed Amberly Beal that Hospice will supply medical equipment and to speak with Hospice regarding DME. Amberly Beal states understanding. Amberly Beal states that staff are saying things that never happened via report and that the physicians will come in and know nothing about patient and make recommendations. STEWART utilized active listening skills and listed to Amberly Beal's concerns. SW informed Amberly eBal of the Patient Advocate and Amberly Beal denied wanting the number as it is worthless and nothing ever gets done. STEWART offered support to Amberly Beal. Amberly Beal thanked this worker, said again that pt will going home at discharge with Hospice services. Green sheet on chart. Plan: Return Home with Hospice Services Mary Maher HIGH SCHOOL FOREIGN LANGUAGE TEACHER, UNDER TRIMMER
[2019-04-22 15:12] VITALS: BP 115/75; PULSE 57; RESP 20; TEMP 37.3; O2SAT 93
[2019-04-22 21:34] VITALS: BP 159/91; PULSE 66; RESP 18; TEMP 37.3; O2SAT 96
[2019-04-22] MEDS: traZODone 50 MG Tablet PO (21:44)
[2019-04-22] MEDS: MELATONIN 3 MG TABLET PO (21:44)
[2019-04-23] MEDS: 0.9% Normal Saline 1,000 ML 75 ML IV (01:10)
[2019-04-23] MEDS: 0.9% NaCl Peripheral Flush Adult/Peds IV (03:40)
[2019-04-23 03:52] VITALS: BP 95/54; PULSE 57; RESP 18; TEMP 37.3; O2SAT 92
[2019-04-23] MEDS: Carbidopa/Levodopa 25/100 Tablet PO ×3 (06:38→15:37)
[2019-04-23] MEDS: Heparin Injection (Vial) 5,000 UNIT/ML VIAL 5000 UNIT SC ×3 (06:38→22:34)
[2019-04-23 06:52] VITALS: O2SAT 90
[2019-04-23 09:00] VITALS: PULSE 63; RESP 18; O2SAT 94
[2019-04-23] MEDS: Ceftriaxone 1 GM/50 ML BAG IV (09:25)
[2019-04-23 09:30] VITALS: BP 143/82; PULSE 63; RESP 18; TEMP 36.7; O2SAT 94
[2019-04-23] MEDS: Pantoprazole Sodium 40 MG Tablet PO (10:06)
[2019-04-23] MEDS: Finasteride 5 MG Tablet PO (10:07)
[2019-04-23] MEDS: Amiodarone 200 MG Tablet PO (10:07)
[2019-04-23] MEDS: Pramipexole Di-HCl 0.25 MG Tablet PO ×2 (10:07→22:33)
[2019-04-23] MEDS: METHENAMINE HIPPURATE 1 GM TABLET PO (10:11)
--- NOTE | 2019-04-23 11:35 | CASEMGMT ---
SOCIAL WORK DR. MACIAS REQUESTING THIS WORKER FOLLOW UP WITH AND PATIENT REGARDING SAFE D/C PLANNING. DR. MACIAS RECOMMENDING CUSTODIAL PLACEMENT. THERAPY WORKING WITH PATIENT AT THIS TIME. THIS WORKER TO FOLLOW UP. MALLORY RAMOS, SUPERVISOR ALUMINUM BOAT ASSEMBLY, CLAIM ADJUSTER.
--- NOTE | 2019-04-23 11:57 | CASEMGMT ---
SOCIAL WORK THIS WORKER MET WITH PATIENT AND PATIENT'S IN ROOM. IN AGREEMENT WITH DR'S RECOMMENDATION FOR LONGTERM AND BELIEVES PATIENT WOULD BENEFIT SHE WISHES PATIENT TO RETURN HOME. ALL OPTIONS DISCUSSED INCLUDING PRIVATELY PAYING FOR LONGTERM PLACEMENT. STATES UNABLE TO PRIVATELY PAY. WANTING TO REVOKE HOSPICE SERVICES AT THIS TIME FOR PATIENT TO COMPLETE THERAPY. THIS WORKER TO LOOK UP NUMBER SHE HAS MISPLACED CARD WITH CONTACT INFORMATION FOR [facility]. PATIENT IN AGREEMENT WITH PLAN AND BOTH REQUESTING REFERRAL TO [facility] AND [facility]. MALLORY RAMOS, DIRECTOR OF MEDICAL SERVICES, DEPUTY COURT CLERK.
--- NOTE | 2019-04-23 12:33 | CASEMGMT ---
SOCIAL WORK PROVIDED WITH CONTACT INFORMATION FOR [facility]. MAKING PHONE CALL AT THIS TIME TO REVOKE HOSPICE SERVICES PATIENT AND WISH FOR PATIENT TO COMPLETE THERAPY-SNF. MALLORY RAMOS, FINANCIAL ACCOUNTANT, FORENSIC SOCIAL WORKER.
--- NOTE | 2019-04-23 13:10 | CASEMGMT ---
SOCIAL WORK REFERRAL MADE TO TCU. MESSAGE LEFT ON REFERRAL LINE. THIS WORKER TO UPDATE DR. MACIAS. MALLORY RAMOS, DIFFUSION FURNACE OPERATOR, TERMINAL PRESS OPERATOR.
[2019-04-23 15:24] VITALS: BP 134/69; PULSE 60; RESP 18; TEMP 37; O2SAT 93
--- NOTE | 2019-04-23 15:27 | PCM.PN.HOSP ---
Subjective: Patient was seen and examined. He is a 2 person assist. Discussed with him about discharge disposition. His had wanted him at home. I did discuss in person with the , she agreed that she is not strong enough to take care of him. They would like patient to be discharged to TCU or [facility]. manager multicultural and social workers consulted and working on discharge disposition. Objective: Physical Exam General: Alert, Oriented x3, Cooperative, No apparent distress HEENT: Atraumatic, PERRLA, EOMI, Normocephalic Oral: No Gingival or Mucosal Lesions/ Ulcerations, Dry Mucosa Neck: Supple, No JVD, Negative Carotid Bruits, Trachea Midline, Thyroid Normal Size and Texture Lungs: Clear to auscultation, Normal air movement, No rhonchi, No wheeze, No rales, Diminished Cardiovascular: Regular rate, Regular Rhythm, Normal S1, Normal S2, PMI Normal Abdomen: Bowel Sounds Present, Soft, Non Tender, Non-Distended, No Hepato-splenomegaly Extremities: No clubbing, No cyanosis, Edema Skin: No rashes, No breakdown Lymphatic: No Cervical, Supraclavicular, or Inguinal Adenopathy Neurological: Cranial nerves II-XII grossly intact, Motor Exam 5/5 strength throughout Psych/Mental Status: Normal Affect, Appropriate Vitals/I&O's: Vital Signs Temp Pulse Resp BP Pulse Ox 98.6 F 60 18 134/69 H 93 04/23/19 15:24 04/23/19 15:24 04/23/19 15:24 04/23/19 15:24 04/23/19 15:24 Oxygen Delivery Method Room Air Weight: 79.4 kg Body Mass Index (BMI) 25.1 Intake and Output for Last 24 Hours 04/21/19 04/22/19 04/23/19 23:59 23:59 23:59 Intake Total 2775 / 3325 1623 / 1623 Output Total 750 / 1000 950 / 950 Balance 2025 / 2325 673 / 673 Microbiology Past 72 Hours 04/21/19 18:30 Urine Catheter - Catheter Urine Culture - Preliminary Gram negative richard Current Medications Acetaminophen (Tylenol) 650 mg PO Q6H PRN PRN PRN Reason: Mild Pain (1-3)/Temp > 100.7 F Amiodarone HCl (Cordarone) 200 mg PO DAILY [facility] Last Admin: 04/23/19 10:07 Dose: 200 mg Documented by: Carbidopa/Levodopa (Sinemet) 2 tablet PO TIDAC [facility] Last Admin: 04/23/19 10:08 Dose: 2 tablet Documented by: Finasteride (Proscar) 5 mg PO DAILY [facility] Last Admin: 04/23/19 10:07 Dose: 5 mg Documented by: Heparin Sodium (Porcine) (Heparin Na) 5,000 unit SC Q8 [facility] Last Admin: 04/23/19 06:38 Dose: 5,000 unit Documented by: Ceftriaxone Sodium (Rocephin) 1 gm in 50 mls @ 100 mls/hr IV Q24H [facility] Last Admin: 04/23/19 09:25 Dose: 100 mls/hr Documented by: Sodium Chloride () 1,000 mls @ 100 mls/hr IV .Q10H [facility] Stop: 04/24/19 06:24 Melatonin (Melatonin) 3 mg PO QHS [facility] Last Admin: 04/22/19 21:44 Dose: 3 mg Documented by: Methenamine Hippurate (Hiprex) 1 gm PO DAILY [facility] Last Admin: 04/23/19 10:11 Dose: 1 gm Documented by: Nutritional Formula (Lactose Free) (Ensure Enlive) 120 ml PO TID [facility] Ondansetron HCl (Zofran) 4 mg IV Q8H PRN PRN PRN Reason: NAUSEA/VOMITING Pantoprazole Sodium (Protonix) 40 mg PO DAILY [facility] Last Admin: 04/23/19 10:06 Dose: 40 mg Documented by: Pramipexole Dihydrochloride (Mirapex) 0.25 mg PO BID [facility] Last Admin: 04/23/19 10:07 Dose: 0.25 mg Documented by: Sodium Chloride () 10 - 40 ml IV UD PRN PRN Reason: SALINE FLUSH Last Admin: 04/23/19 03:40 Dose: 10 ml Documented by: Trazodone HCl (Desyrel) 50 mg PO QHS [facility] Last Admin: 04/22/19 21:44 Dose: 50 mg Documented by: Medical Necessity - Tobacco Use Smoking Status: Former smoker Assessment/Plan 78-year-old male with past medical history of bladder CA status post surgery, status post right ureteral stent placement, history of recurrent UTIs, in hospice comes in with complaints of weakness in recurrent falls. 1. Acute gram negative cystitis, complicated, history of chronic indwelling Flores catheter, history of recurrent UTIs, on IV ceftriaxone, urine culture pending, continue to monitor 2. Infiltrates noted on x-ray on admission, repeat X-ray shows atelectasis, Encourage use of incentive spirometer 3. Paroxysmal atrial fibrillation, rate controlled, on amiodarone, off anticoagulation 4. CKD stage III, at baseline 5. BPH, history of bladder CA, started with chronic indwelling Flores catheter, in Hospice 6. Parkinson's disease with dementia, at baseline, continue home Sinemet and trazodone 7. DVT PPx- Heparin SC 8. Disposition: DC to SNF, precert pending Code Visit Inpatient E&M: 65956 Subs Hosp L2
[2019-04-23] MEDS: 0.9% Normal Saline 1,000 ML 100 ML IV (16:00)
[2019-04-23 22:29] VITALS: BP 150/92; PULSE 66; RESP 16; TEMP 37.4; O2SAT 98
[2019-04-23] MEDS: traZODone 50 MG Tablet PO (22:33)
[2019-04-23] MEDS: MELATONIN 3 MG TABLET PO (22:33)
[2019-04-24] MEDS: 0.9% Normal Saline 1,000 ML 100 ML IV (02:10)
[2019-04-24 02:16] VITALS: BP 138/81; PULSE 66; RESP 18; TEMP 37.4; O2SAT 93
[2019-04-24 06:14] VITALS: TEMP 36.9
[2019-04-24] MEDS: Carbidopa/Levodopa 25/100 Tablet PO ×3 (06:18→15:49)
[2019-04-24] MEDS: Heparin Injection (Vial) 5,000 UNIT/ML VIAL 5000 UNIT SC ×3 (06:18→21:32)
[2019-04-24 06:46] VITALS: O2SAT 89
[2019-04-24 07:42] VITALS: BP 137/82; PULSE 62; RESP 18; TEMP 37.4; O2SAT 93
[2019-04-24] MEDS: Ceftriaxone 1 GM/50 ML BAG IV (08:06)
--- NOTE | 2019-04-24 09:41 | EKG12_ITS ---
Test Reason : Blood Pressure : / mmHG Vent. Rate : 059 BPM Atrial Rate : 059 BPM P-R Int : 188 ms QRS Dur : 100 ms QT Int : 460 ms P-R-T Axes : 034 076 063 degrees QTc Int : 455 ms Sinus bradycardia Otherwise normal ECG Confirmed by COLE NINO, JONAH ([id number]), editor & co founder JOSE FINCH ([id number]) on 04/27/2019 12:43:38 PM Referred By: MEDARDO Confirmed By:JONAH GALVAN MD
[2019-04-24 10:55] LABS: Absolute Lymphocyte Count 0.83 X10^3/ul (0.83-4.51); Absolute Neutrophil Count 5.8 X10^3/uL (2.0-7.7); Basophil# 0.01 X10^3/uL; Basophil% 0.1 % (0-1); Eosinophil# 0.12 X10^3/uL; Eosinophils% 1.5 % (0-5); Hematocrit 30.9 % (40-54); Hemoglobin 10.2 g/dl (13.0-16.5); Lymphocyte # 0.83 X10^3/ul (4.0); Lymphocyte % 10.1 % (19-41); Mean Corpuscular Hgb 31.2 pg (27.0-32.0); Mean Corpuscular Volume 94.5 fL (80-94); Monocyte# 1.41 X10^3/uL; Monocyte% 17.2 % (0-10); Neutrophil # 5.83 X10^3/uL (2.7-7.7); Neutrophil % 70.9 % (47-70); Platelet Count 192 K/mm3 (150-450); RBC Distribution Width CV 13.6 % (11.6-14.6); RBC Distribution Width SD 45.3 fl (35.1-43.9); Red Blood Count 3.27 M/mm3 (4.6-6.2); White Blood Count 8.2 K/mm3 (4.4-11.0)
[2019-04-24] MEDS: METHENAMINE HIPPURATE 1 GM TABLET PO (10:56)
[2019-04-24] MEDS: Finasteride 5 MG Tablet PO (10:57)
[2019-04-24] MEDS: Pantoprazole Sodium 40 MG Tablet PO (10:57)
[2019-04-24] MEDS: Pramipexole Di-HCl 0.25 MG Tablet PO ×2 (10:57→21:32)
[2019-04-24] MEDS: Amiodarone 200 MG Tablet PO (10:57)
[2019-04-24 10:58] LABS: POSITIVE COUNT NO; POSITIVE DIFFERENTIAL NO; POSITIVE MORPHOLOGY NO
[2019-04-24] MEDS: levoFLOXacin 500 MG Tablet PO (11:14)
[2019-04-24 11:15] LABS: Anion Gap 4 (5-15); BUN 18 mg/dL (7-18); BUN/Creat Ratio 14.2 RATIO (10-20); Calcium,Total 8.6 mg/dL (8.5-10.1); Chloride 109 mmol/L (98-107); Creatinine, Serum 1.27 mg/dL (0.70-1.30); EST Glomerular Filtration Rate 58 mL/min (>60); Est Glom Filt Rate - Afr Amer 70 mL/min (>60); Glucose 115 mg/dL (74-106); Potassium 3.7 mmol/L (3.5-5.1); Sodium Level 139 mmol/L (136-145)
--- NOTE | 2019-04-24 11:21 | PCM.PN.HOSP ---
Subjective: Follow-up on altered mental status/UTI: Seen and examined. His is at the bedside. No new complaints. No acute events. He had complained of constipation area on, able to move his bowels today. Denies any fever or chills. Objective: Physical Exam General: Alert, Oriented x3, Cooperative, No apparent distress HEENT: Atraumatic, PERRLA, EOMI, Normocephalic Oral: No Gingival or Mucosal Lesions/ Ulcerations,moist Mucosa Neck: Supple, No JVD, Negative Carotid Bruits, Trachea Midline, Thyroid Normal Size and Texture Lungs: Clear to auscultation, Normal air movement, No rhonchi, No wheeze, No rales, Diminished Cardiovascular: Regular rate, Regular Rhythm, Normal S1, Normal S2, PMI Normal Abdomen: Bowel Sounds Present, Soft, Non Tender, Non-Distended, No Hepato-splenomegaly Extremities: No clubbing, No cyanosis, Edema Skin: No rashes, No breakdown Lymphatic: No Cervical, Supraclavicular, or Inguinal Adenopathy Neurological: Cranial nerves II-XII grossly intact, Motor Exam 5/5 strength throughout Psych/Mental Status: Normal Affect, Appropriate Vitals/I&O's: Vital Signs Temp Pulse Resp BP Pulse Ox 99.3 F H 62 18 137/82 H 93 04/24/19 07:42 04/24/19 07:42 04/24/19 07:42 04/24/19 07:42 04/24/19 07:42 Oxygen Delivery Method Room Air Weight: 79.4 kg Body Mass Index (BMI) 25.1 Intake and Output for Last 24 Hours 04/22/19 04/23/19 04/24/19 23:59 23:59 23:59 Intake Total 2775 / 3325 1623 / 2773 1630 / 1630 Output Total 750 / 1000 950 / 1500 800 / 800 Balance 2024 / 2324 673 / 1273 830 / 830 Microbiology Past 72 Hours 04/21/19 20:16 Blood Culture (Wb) - Anticubital Left Blood Culture - Preliminary No growth in 48 hours. 04/21/19 20:17 Blood Culture (Wb) - No Site/Description Given Blood Culture - Preliminary No growth in 48 hours. 04/21/19 18:30 Urine Catheter - Catheter Urine Culture - Final Pseudomonas aeroginosa Morganella morganii sp morgani Laboratory Results 04/24/19 10:46: WBC 8.2, RBC 3.27 L, Hgb 10.2 L, Hct 30.9 L, MCV 94.5 H, MCH 31.2, MCHC 33.0, RDW 13.6, RDW Differential 45.3 H, Plt Count 192, MPV 11.0, Immature Gran % (Auto) 0.200, Neut % (Auto) 70.9 H, Lymph % (Auto) 10.1 L, Oliver % (Auto) 17.2 H, Eos % (Auto) 1.5, Baso % (Auto) 0.1, Absolute Neuts (auto) 5.8, Absolute Lymphs (auto) 0.83, Total Counted Not Reportable 04/24/19 10:46: Sodium 139, Potassium 3.7, Chloride 109 H, Carbon Dioxide 26.0, Anion Gap 4 L, BUN 18, Creatinine 1.27, Estim Creat Clear Calc 49.50, Est GFR (MDRD) Af Amer 70, Est GFR (MDRD) Non-Af 58 L, BUN/Creatinine Ratio 14.2, Glucose 115 H, Calcium 8.6 Current Medications Acetaminophen (Tylenol) 650 mg PO Q6H PRN PRN PRN Reason: Mild Pain (1-3)/Temp > 100.7 F Amiodarone HCl (Cordarone) 200 mg PO DAILY [facility] Last Admin: 04/24/19 10:57 Dose: 200 mg Documented by: Carbidopa/Levodopa (Sinemet) 2 tablet PO TIDAC [facility] Last Admin: 04/24/19 10:57 Dose: 2 tablet Documented by: Finasteride (Proscar) 5 mg PO DAILY [facility] Last Admin: 04/24/19 10:57 Dose: 5 mg Documented by: Heparin Sodium (Porcine) (Heparin Na) 5,000 unit SC Q8 [facility] Last Admin: 04/24/19 06:18 Dose: 5,000 unit Documented by: Levofloxacin (Levaquin Tablet) 500 mg PO DAILY@0600 [facility] Stop: 04/28/19 06:01 Last Admin: 04/24/19 11:14 Dose: 500 mg Documented by: Magnesium Hydroxide (Milk Of Magnesia) 30 ml PO DAILY PRN PRN Reason: Constipation Melatonin (Melatonin) 3 mg PO QHS [facility] Last Admin: 04/23/19 22:33 Dose: 3 mg Documented by: Methenamine Hippurate (Hiprex) 1 gm PO DAILY [facility] Last Admin: 04/24/19 10:56 Dose: 1 gm Documented by: Nutritional Formula (Lactose Free) (Ensure Enlive) 120 ml PO TID [facility] Last Admin: 04/24/19 06:18 Dose: 120 ml Documented by: Pantoprazole Sodium (Protonix) 40 mg PO DAILY [facility] Last Admin: 04/24/19 10:57 Dose: 40 mg Documented by: Pramipexole Dihydrochloride (Mirapex) 0.25 mg PO BID [facility] Last Admin: 04/24/19 10:57 Dose: 0.25 mg Documented by: Senna/Docusate Sodium (Senokot-S, Treasure-Colace) 2 tablet PO BID PRN PRN Reason: Constipation Sodium Chloride () 10 - 40 ml IV UD PRN PRN Reason: SALINE FLUSH Last Admin: 04/23/19 03:40 Dose: 10 ml Documented by: Trazodone HCl (Desyrel) 50 mg PO QHS [facility] Last Admin: 04/23/19 22:33 Dose: 50 mg Documented by: Medical Necessity - Tobacco Use Smoking Status: Former smoker Assessment/Plan 78-year-old male with past medical history of bladder CA status post surgery, status post right ureteral stent placement, history of recurrent UTIs, in hospice comes in with complaints of weakness in recurrent falls. 1. Acute abdominal/Morganella complicated UTI , history of chronic indwelling Flores catheter, history of recurrent UTIs, on IV ceftriaxone, will switch to p.o. Cipro, labs in a.m. 2. Infiltrates noted on x-ray on admission, repeat X-ray shows atelectasis, encourage use of incentive spirometer 3. Paroxysmal atrial fibrillation, rate controlled, on amiodarone, off anticoagulation 4. CKD stage III, at baseline 5. BPH, history of bladder CA, started with chronic indwelling Flores catheter, in Hospice 6. Parkinson's disease with dementia, at baseline, continue home Sinemet and trazodone 7. DVT PPx- Heparin SC 8. Disposition: DC to SNF, precert pending Code Visit Inpatient E&M: 69534 Subs Hosp L2
[2019-04-24 13:47] VITALS: BP 121/74; PULSE 64; RESP 16; TEMP 37; O2SAT 98
--- NOTE | 2019-04-24 15:23 | NURSING ---
Pt son, dtr in law and granddaughter in to visit. present as well. Son brought lunch for everyone and pt requested to wait until later this afternoon for assmt, vitals, meds etc.
--- NOTE | 2019-04-24 18:22 | NURSING ---
Chronic bear changed at this time per dr. scott. Pt educated and tolerated sterile procedure well.
[2019-04-24] MEDS: MELATONIN 3 MG TABLET PO (21:32)
[2019-04-24] MEDS: traZODone 50 MG Tablet PO (21:32)
[2019-04-24 21:43] VITALS: BP 128/82; PULSE 63; RESP 16; TEMP 37.2; O2SAT 97
[2019-04-25 03:43] VITALS: BP 126/72; PULSE 67; RESP 16; TEMP 37.1; O2SAT 97
[2019-04-25 06:17] LABS: Absolute Lymphocyte Count 1.21 X10^3/ul (0.83-4.51); Absolute Neutrophil Count 4.6 X10^3/uL (2.0-7.7); Basophil# 0.01 X10^3/uL; Basophil% 0.1 % (0-1); Eosinophil# 0.15 X10^3/uL; Hematocrit 29.3 % (40-54); Hemoglobin 9.7 g/dl (13.0-16.5); Lymphocyte # 1.21 X10^3/ul (4.0); Lymphocyte % 16.5 % (19-41); Mean Corp Hgb Conc 33.1 g/gl (32-36); Mean Corpuscular Hgb 30.9 pg (27.0-32.0); Mean Corpuscular Volume 93.3 fL (80-94); Mean Platelet Vol. 10.9 fl (6.2-12.0); Monocyte# 1.33 X10^3/uL; Monocyte% 18.1 % (0-10); Neutrophil # 4.61 X10^3/uL (2.7-7.7); Platelet Count 194 K/mm3 (150-450); RBC Distribution Width CV 14.1 % (11.6-14.6); RBC Distribution Width SD 48.1 fl (35.1-43.9); Red Blood Count 3.14 M/mm3 (4.6-6.2); White Blood Count 7.3 K/mm3 (4.4-11.0)
[2019-04-25 06:24] LABS: POSITIVE COUNT NO; POSITIVE DIFFERENTIAL NO; POSITIVE MORPHOLOGY NO
[2019-04-25] MEDS: Carbidopa/Levodopa 25/100 Tablet PO ×3 (06:32→17:24)
[2019-04-25] MEDS: Heparin Injection (Vial) 5,000 UNIT/ML VIAL 5000 UNIT SC ×3 (06:32→22:21)
[2019-04-25 06:35] LABS: Anion Gap 3 (5-15); BUN 18 mg/dL (7-18); BUN/Creat Ratio 16.4 RATIO (10-20); Calcium,Total 8.2 mg/dL (8.5-10.1); Chloride 108 mmol/L (98-107); EST Glomerular Filtration Rate 69 mL/min (>60); Est Glom Filt Rate - Afr Amer 83 mL/min (>60); Estimated Creatinine Clearance 57.15 ml/min; Glucose 99 mg/dL (74-106); Sodium Level 139 mmol/L (136-145)
[2019-04-25] MEDS: levoFLOXacin 500 MG Tablet PO (06:36)
[2019-04-25 08:57] VITALS: BP 144/75; PULSE 64; RESP 18; TEMP 37.1; O2SAT 91
[2019-04-25] MEDS: Pantoprazole Sodium 40 MG Tablet PO (09:08)
[2019-04-25] MEDS: Amiodarone 200 MG Tablet PO (09:08)
[2019-04-25] MEDS: Finasteride 5 MG Tablet PO (09:08)
[2019-04-25] MEDS: Pramipexole Di-HCl 0.25 MG Tablet PO ×2 (09:08→22:21)
--- NOTE | 2019-04-25 09:19 | CASEMGMT ---
Addendum entered by Mary Maher 04/25/19 14:38: STEWART received call from Renea in TCU stating they are not in network with pt's insurance. SW met with pt and pt's Amberly Beal. SW updated Amberly Beal that TCU is not in network with pt's insurance. Amberly Beal agreeable to referral being made to [facility]. SW explained referral process that pt will need pre-cert for [facility]. Amberly Beal states understanding. STEWART placed a call to Heather at [facility], left message regarding referral, and informed Heather that if [facility] is able to accept pt to submit for pre-cert. Plan: [facility] pending acceptance and pre-cert Original Note: Social Work Note SW received message from [place] with TCU stating TCU is now in network with pt's insurance and she will submit for pre-cert today. Plan: TCU pending pre-cert Mary Maher MANAGEMENT NURSE RN, DIET THERAPIST
[2019-04-25 09:44] LABS: Pathologist Review Reviewed
[2019-04-25 09:45] LABS: Pathologist Review Reviewed
--- NOTE | 2019-04-25 09:57 | PN_ITS ---
Subjective: The patient is a 78-year-old male with a past medical history of Parkinson's disease, paroxysmal atrial fibrillation, chronic renal failure stage III, bladder cancer (status post surgery), status post right ureteral stent placement, chronic Bear placement and history of recurrent UTIs who was in hospice but presented to the emergency room complaining of weakness and recurrent falls. He was diagnosed with a complicated urinary tract infection secondary to pseudomonas aeruginosa and Morganella morganii. Both the Morganella and Pseudomonas were sensitive to fluoroquinolones. He was treated with Levaquin. He has been afebrile for 24 hours now. Vital signs are stable. Pulse ox is 91 to 97% on room air. Poor oral intake All lab was personally reviewed. The white blood cell count today is down to 7.3 and he has 63% neutrophils. Hemoglobin is 9.7 and platelets are within normal limits. Creatinine has decreased from 1.53-1.19 since admission. Patient is to be discharged to a senior care facility. Precertification is pending. The patient's tells me that he never had CA? She is very concerned we are kicking him out of the hospital before he is better. She is worried because he has not been able to ambulate. she tells me prior to admission he was fine at home and did not require much assistance. He was diagnosed with dementia 2 years ago. I reviewed the PT notes and he is requiring constant cuing and single step commands with all tasks. His only complaint today is a dry cough that increases when he lies down. - Physical Exam General: Alert, Oriented x3, Cooperative, No apparent distress, - - sitting in a chair....ate only a very small amount of his lunch HEENT: Atraumatic, PERRLA, EOMI, Normocephalic Oral: Moist Mucosa Neck: Supple, No JVD, Negative Carotid Bruits, Trachea Midline Lungs: Clear to auscultation, No rhonchi, No wheeze, No rales Cardiovascular: Regular rate, Regular Rhythm, Normal S1, Normal S2, No rub noted, No Gallop Abdomen: Bowel Sounds Present, Soft, Non Tender, Non-Distended Extremities: No clubbing, No cyanosis, No edema Neurological: Cranial nerves II-XII grossly intact Psych/Mental Status: Appropriate, Flat Affect Vital Signs Temp Pulse Resp BP Pulse Ox 98.7 F 64 18 144/75 H 91 07/01/19 08:57 04/25/19 08:57 04/25/19 08:57 04/25/19 08:57 04/25/19 08:57 Oxygen Delivery Method Room Air Weight: 175 lb 0.752 oz Body Mass Index (BMI) 25.1 Intake and Output for Last 24 Hours 04/23/19 04/24/19 04/25/19 23:59 23:59 23:59 Intake Total 1623 / 2773 2608 / 3028 540 / 540 Output Total 950 / 1500 1400 / 1650 1000 / 1000 Balance 673 / 1273 1208 / 1378 -460 / -460 Microbiology Past 72 Hours 04/21/19 20:16 Blood Culture - Preliminary Blood Culture (Wb) - Anticubital Left No growth in 48 hours. 04/21/19 20:17 Blood Culture - Preliminary Blood Culture (Wb) - No Site/Description Given No growth in 48 hours. 04/21/19 18:30 Urine Culture - Final Urine Catheter - Catheter Pseudomonas aeroginosa Morganella morganii sp morgani Laboratory Tests Past 24 Hrs 04/21/19 04/22/19 04/24/19 18:14 05:40 10:46 WBC 8.2 RBC 3.27 L Hgb 10.2 L Hct 30.9 L MCV 94.5 H MCH 31.2 MCHC 33.0 RDW 13.6 RDW Differential 45.3 H Plt Count 192 MPV 11.0 Immature Gran % (Auto) 0.200 Neut % (Auto) 70.9 H Lymph % (Auto) 10.1 L Hampton % (Auto) 17.2 H Eos % (Auto) 1.5 Baso % (Auto) 0.1 Absolute Neuts (auto) 5.8 Absolute Lymphs (auto) 0.83 Total Counted Not Reportable Diff Path Review Reviewed Reviewed Sodium Potassium Chloride Carbon Dioxide Anion Gap BUN Creatinine Estim Creat Clear Calc Est GFR (MDRD) Af Amer Est GFR (MDRD) Non-Af BUN/Creatinine Ratio Glucose Calcium 04/24/19 04/25/19 04/25/19 10:46 05:55 05:55 WBC 7.3 RBC 3.14 L Hgb 9.7 L Hct 29.3 L MCV 93.3 MCH 30.9 MCHC 33.1 RDW 14.1 RDW Differential 48.1 H Plt Count 194 MPV 10.9 Immature Gran % (Auto) 0.300 Neut % (Auto) 63.0 Lymph % (Auto) 16.5 L Hampton % (Auto) 18.1 H Eos % (Auto) 2.0 Baso % (Auto) 0.1 Absolute Neuts (auto) 4.6 Absolute Lymphs (auto) 1.21 Total Counted Not Reportable Diff Path Review Sodium 139 139 Potassium 3.7 4.0 Chloride 109 H 108 H Carbon Dioxide 26.0 28.0 Anion Gap 4 L 3 L BUN 18 18 Creatinine 1.27 1.10 Estim Creat Clear Calc 49.50 57.15 Est GFR (MDRD) Af Amer 70 83 Est GFR (MDRD) Non-Af 58 L 69 BUN/Creatinine Ratio 14.2 16.4 Glucose 115 H 99 Calcium 8.6 8.2 L Medical Necessity - Tobacco Use Smoking Status: Former smoker Assessment/Plan Impressions 1. Acute complicated urinary tract infection in a patient with a chronic indwelling Bear catheter-present at admission 2. Dementia 3. Dry cough-suspect secondary to postnasal drainage 4. Paroxysmal atrial fibrillation 5. Chronic renal failure stage III 6. History of bladder cancer and BPH - was in hospice but, this was revoked at admission 7. generalized weakness and disability with inability to follow more than 1 step commands and reuiring max assist of 2 to go from sitting to standing 8. Parkinson's disease versus parkinsonism secondary to dementia 9. Normochromic normocytic anemia with a normal RDW Pt is to be transferred to SNF for PT/OT at [place]. [id number] pre-cert from the insurance company. I suspect the is not dealing with the reality of dementia and how it complicates his ability to improve with PT/OT. I reassured her that he is AF with a normal WBC and diff and that he is on an appropriate antibiotic AND we are not forcing him out of the hospital prematurely. Will continue the Levaquin for a total of 10 days since this is related to the chronic bear catheter which can not be removed. Code Visit Inpatient E&M: 15346 Subs Hosp L2
[2019-04-25 12:00] LABS: Bedside Glucose 126 mg/dL (70-110)
[2019-04-25] MEDS: METHENAMINE HIPPURATE 1 GM TABLET PO (13:02)
[2019-04-25 14:00] VITALS: BP 147/75; PULSE 59; RESP 18; TEMP 37.3; O2SAT 94
[2019-04-25 19:41] VITALS: BP 143/73; PULSE 64; RESP 18; TEMP 38; O2SAT 94
[2019-04-25] MEDS: Acetaminophen 325 MG Tablet 650 MG PO (19:52)
[2019-04-25] MEDS: MELATONIN 3 MG TABLET PO (22:21)
[2019-04-25] MEDS: traZODone 50 MG Tablet PO (22:21)
[2019-04-25] MEDS: Ipratropium Bromide 0.06% NASAL SPRAY 2 SPRAY NASAL (23:41)
[2019-04-26] MEDS: Carbidopa/Levodopa 25/100 Tablet PO ×3 (06:21→15:24)
[2019-04-26] MEDS: Ipratropium Bromide 0.06% NASAL SPRAY 2 SPRAY NASAL ×3 (06:21→22:34)
[2019-04-26] MEDS: levoFLOXacin 500 MG Tablet PO (06:21)
[2019-04-26] MEDS: Heparin Injection (Vial) 5,000 UNIT/ML VIAL 5000 UNIT SC ×3 (06:21→22:34)
[2019-04-26 06:22] VITALS: BP 154/82; PULSE 62; RESP 18; TEMP 36.9; O2SAT 93
--- NOTE | 2019-04-26 07:42 | RAD_ITS ---
STUDY: X-RAY CHEST REASON FOR EXAM: Male, 78 years old. Cough. TECHNIQUE: AP upright and lateral views. COMPARISON: 04/22/2019. FINDINGS: New confluent infiltrate right midlung. New right pleural fluid. No other additional findings or changes. RAD/Chest PA and Lateral IMPRESSION: New right midlung pneumonia and new right pleural fluid when compared to 04/22/2019. Electronically Signed: Terrell Carroll MD at 11:07 EDT , Service support ,
--- NOTE | 2019-04-26 07:43 | PCM.PROGNOTE ---
Subjective: Day #6 antibiotics All events of the past 24 hours of been reviewed. T-max 100.4 ?F at approximately 745 1 04/25/2019. Oral intake on 04/25/2019 was 900 cc. He denies coughing with eating or drinking CXR today is consistent with PNA R mid lung and I suspect this is due to silent aspiration Denies CP and SOB Not coughing anything up - Physical Exam General: No apparent distress, Confused, - - slumped over his lunch, unable to answer my questions appropriately and then got a little agitated. HEENT: Atraumatic Lungs: No rhonchi, No wheeze, No rales, Diminished, - - poor inspiratory effort Cardiovascular: Regular rate, Regular Rhythm, Normal S1, Normal S2, No Gallop Abdomen: Bowel Sounds Present, Soft, Non-Distended, - Extremities: No edema Skin: No rashes Neurological: Cranial nerves II-XII grossly intact Psych/Mental Status: Flat Affect Vital Signs Temp Pulse Resp BP Pulse Ox 98.5 F 62 18 154/82 H 93 04/26/19 06:22 04/26/19 06:22 04/26/19 06:22 04/26/19 06:22 04/26/19 06:22 Oxygen Delivery Method Room Air Weight: 175 lb 0.752 oz Body Mass Index (BMI) 25.1 Intake and Output for Last 24 Hours 04/24/19 04/25/19 04/26/19 23:59 23:59 23:59 Intake Total 2608 / 3028 900 / 900 220 / 220 Output Total 1400 / 1650 1000 / 1000 950 / 950 Balance 1208 / 1378 -100 / -100 -730 / -730 Microbiology Past 72 Hours 04/21/19 20:16 Blood Culture - Preliminary Blood Culture (Wb) - Anticubital Left No growth in 48 hours. 04/21/19 20:17 Blood Culture - Preliminary Blood Culture (Wb) - No Site/Description Given No growth in 48 hours. 04/21/19 18:30 Urine Culture - Final Urine Catheter - Catheter Pseudomonas aeroginosa Morganella morganii sp morgani Laboratory Tests Past 24 Hrs 04/21/19 04/22/19 18:14 05:40 Diff Path Review Reviewed Reviewed POC Glucose 04/25/19 11:48 POC Glucose 126 H Medical Necessity - Tobacco Use Smoking Status: Former smoker Assessment/Plan Impressions 1. Acute complicated urinary tract infection in a patient with a chronic indwelling Flores catheter-present at admission 2. Dementia 3. Dry cough-suspect secondary to postnasal drainage 4. Paroxysmal atrial fibrillation 5. Chronic renal failure stage III 6. History of bladder cancer and BPH - was in hospice but, this was revoked at admission 7. generalized weakness and disability with inability to follow more than 1 step commands and reuiring max assist of 2 to go from sitting to standing 8. Parkinson's disease versus parkinsonism secondary to dementia 9. Normochromic normocytic anemia with a normal RDW 10. Hospital-acquired pneumonia-suspect aspiration Change the antibiotic to Zosyn which will cover aspiration pneumonia but also treat pseudomonas aeruginosa and Morganella infections Speech therapy evaluation - requested a MBS because I think he is silently aspirating I had a private discussion with his and explained that he is not doing very well with PT and ambulation although the PT noted today that he is progressing. He will need to go to SNF when the PNA is improved. How he does at long-term will determmine if he is able to go home. Continue PT/OT Small right pleural effusion-we will give 1 dose of Lasix 20 mg IV today. Recheck lab in the a.m. Code Visit Inpatient E&M: 10208 Subs Hosp L2
--- NOTE | 2019-04-26 10:00 | CASEMGMT ---
Addendum entered by Mary Maher 04/26/19 11:10: STEWART faxed updated clinicals to [facility]. Original Note: Social Work Note SW received message from Heather at [facility] stating she is able to accept pt and she submitted for pre-cert. STEWART placed a call back to Heather at [facility] and left her a message that per pt's AGUSTIN Beal she would like pt to be in a room by the back door. Agustin Beal states pt was in room 401 last time and it was easy for her to get to pt as she also has trouble walking. Alejandra states she will take whatever room [facility] has available but again states that her preference is for pt to be in a room by the back door. STEWART updated Heather at [facility] of pt's request. Plan: [facility] pending pre-cert Mary Maher PUBLIC SAFETY OFFICER, PARI MUTUEL TICKET CASHIER
[2019-04-26] MEDS: Finasteride 5 MG Tablet PO (10:53)
[2019-04-26] MEDS: Amiodarone 200 MG Tablet PO (10:53)
[2019-04-26] MEDS: Pramipexole Di-HCl 0.25 MG Tablet PO (10:53)
[2019-04-26] MEDS: Pantoprazole Sodium 40 MG Tablet PO (10:53)
[2019-04-26] MEDS: METHENAMINE HIPPURATE 1 GM TABLET PO (10:53)
[2019-04-26 11:22] LABS: Bacteria 0 SEEN /hpf (None Seen); Mucous, Urine 0 SEEN /hpf (<or=2+)
[2019-04-26 11:26] LABS: Color, Urine Yellow (Yellow); Glucose, Dipstick Normal (Normal); Ketone-Dipstick Negative (Negative); Leukocyte Esterase-Dipstick 25 /ul (Negative); Nitrite-Dipstick Negative (Negative); Occult Blood-Urine Negative /ul (Negative); Protein-Dipstick 15 mg/dl (Negative); Specific Gravity, Urine 1.015 (1.002-1.030); Urine Bilirubin Dipstick Negative (Negative); Urine Clarity Sl. Cloudy (Clear); Urine Urobilinogen 4 mg/dl (Normal)
[2019-04-26 11:32] LABS: Red Blood Cells-Urine 0-5 SEEN /hpf (0-5); Squamous Epithelial Cells - UA 0-5 SEEN /hpf (0-5); White Blood Cells 0-5 SEEN /hpf (0-5)
[2019-04-26 12:20] VITALS: BP 149/72; PULSE 61; RESP 18; TEMP 36.7; O2SAT 95
[2019-04-26] MEDS: Furosemide 20 MG/2 ML VIAL IV (15:24)
[2019-04-26] MEDS: 0.9% NaCl Peripheral Flush Adult/Peds IV (15:26)
--- NOTE | 2019-04-26 16:07 | CASEMGMT ---
Social Work Note SW met with pt and pt's Amberly Beal and updated them that pt has been accepted to [facility] pending pre-cert. Alejandra states understanding. Per physician pt is not medically cleared for discharge today. Plan: [facility] pending pre-cert Mary Maher CARGO TRIMMER, SCRAP CARRIER
[2019-04-26 18:20] VITALS: BP 114/62; PULSE 60; RESP 16; TEMP 36.9; O2SAT 94
[2019-04-26 22:00] VITALS: BP 142/71; PULSE 62; RESP 16; TEMP 36.6; O2SAT 94
[2019-04-27 03:17] VITALS: BP 118/67; PULSE 57; RESP 16; TEMP 37.1; O2SAT 92
[2019-04-27 03:26] VITALS: O2SAT 92
[2019-04-27] MEDS: Heparin Injection (Vial) 5,000 UNIT/ML VIAL 5000 UNIT SC ×3 (05:26→21:36)
[2019-04-27] MEDS: Ipratropium Bromide 0.06% NASAL SPRAY 2 SPRAY NASAL ×3 (05:26→21:37)
[2019-04-27 06:54] LABS: Absolute Lymphocyte Count 1.36 X10^3/ul (0.83-4.51); Basophil# 0.02 X10^3/uL; Basophil% 0.3 % (0-1); Eosinophil# 0.22 X10^3/uL; Eosinophils% 3.3 % (0-5); Hematocrit 30.2 % (40-54); Hemoglobin 9.8 g/dl (13.0-16.5); Lymphocyte # 1.36 X10^3/ul (4.0); Lymphocyte % 20.1 % (19-41); Mean Corp Hgb Conc 32.5 g/gl (32-36); Mean Corpuscular Hgb 30.4 pg (27.0-32.0); Mean Corpuscular Volume 93.8 fL (80-94); Mean Platelet Vol. 10.9 fl (6.2-12.0); Monocyte# 1.18 X10^3/uL; Monocyte% 17.5 % (0-10); Neutrophil # 3.95 X10^3/uL (2.7-7.7); Neutrophil % 58.4 % (47-70); POSITIVE COUNT NO; POSITIVE DIFFERENTIAL NO; POSITIVE MORPHOLOGY NO; Platelet Count 241 K/mm3 (150-450); RBC Distribution Width CV 13.5 % (11.6-14.6); RBC Distribution Width SD 44.3 fl (35.1-43.9); Red Blood Count 3.22 M/mm3 (4.6-6.2); White Blood Count 6.8 K/mm3 (4.4-11.0)
[2019-04-27 07:22] LABS: Anion Gap 8 (5-15); BUN 20 mg/dL (7-18); BUN/Creat Ratio 14.3 RATIO (10-20); Calcium,Total 8.7 mg/dL (8.5-10.1); Chloride 103 mmol/L (98-107); EST Glomerular Filtration Rate 52 mL/min (>60); Est Glom Filt Rate - Afr Amer 63 mL/min (>60); Glucose 89 mg/dL (74-106); Phosphorus 3.8 mg/dL (2.5-4.9); Potassium 4.3 mmol/L (3.5-5.1); Sodium Level 138 mmol/L (136-145)
--- NOTE | 2019-04-27 08:42 | CASEMGMT ---
Addendum entered by Mary Maher 04/27/19 11:54: Per Physician pt is not medically cleared for discharge today. SW placed a call to Heather at [facility] and left her a message updating her on this and asked how long pre-cert was good for. SW waiting for call back. Original Note: Social Work Note SW received message from Heather at [facility] stating pre-cert has been obtained and pt is able to discharge to [facility] today. Plan: [facility] today Mary Maher STRATEGIC PLANNING CONSULTANT, CHEMICAL TEST ENGINEER
[2019-04-27 09:20] VITALS: BP 128/70; PULSE 57; RESP 16; TEMP 36.7; O2SAT 93
--- NOTE | 2019-04-27 14:30 | SP.MBSS_ITS ---
PRIMARY / SECONDARY DIAGNOSIS: dysphagia (R13.10) REFERRING PHYSICIAN: Dr. Priscilla Ferrer MD CURRENT DIET: NPO pending MBS results MENTAL STATUS: dementia RESPIRATORY STATUS: O2 via room air REASON FOR REFERRAL: The Patient is a 78 year old male referred for a modified barium swallow (MBS) study to objectively assess the Patients oropharyngeal swallow function under fluoroscopy secondary to the diagnosis of Parkinson?s disease and highly suspected silent aspiration following clinical assessment at bedside. 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 PREVIOUS MODIFIED BARIUM SWALLOW STUDY: None. ADDITIONAL OBJECTIVE ASSESSMENT RESULTS: 04/26/2019 chest x-ray revealed new right midlung pneumonia and new right pleural fluid when compared to 04/22/2019. 04/22/2019 chest x-ray revealed linear atelectasis right base with blunting of the costophrenic angle posteriorly. 04/21/2019 chest x-ray revealed right pulmonary infiltrates. ASSESSMENT PARAMETERS: The Patient participated in a Modified Barium Swallow (MBS) study on 04/27/2019. Dr. Beltran was the radiologist present for this evaluation. This study was recorded in the lateral view and images were sent to PACs for storage. Scoring was completed through each trial using the 8-point Penetration-Aspiration Scale (PAS), and summarized via the Modified Barium Swallow Impairment Profile (MBSImP) and the Bolus Residue Scale (BRS), with severity scoring through the Dysphagia Severity Rating Scale (DSRS) and Swallowing Performance Scale (SPS), and recommended diet textures through the International Dysphagia Diet Standardisation Initiative (IDDSI). RESULTS OF THE EVALUATION: The Patient presents with mild to moderate oropharyngeal dysphagia (DSRS: 3; SPS: 4) with shallow penetration and inconsistent complete ejection of thin liquids secondary to the diagnosis of Parkinson?s disease. OBJECTIVE ASSESSMENT OF SWALLOW FUNCTION (QUANTITATIVE ? PER TRIAL): PENETRATION / ASPIRATION SCALE (PAGAN): 1 = does not enter airway 2 = enters airway/above vocal folds/ejected 3 = enters airway/above vocal folds/not ejected 4 = enters airway/contacts vocal folds/ejected 5 = enters airway/contacts vocal folds/not ejected 6 = enters airway/below vocal folds/ejected 7 = enters airway/below vocal folds/not ejected despite effort 8 = enters airway/below vocal folds/no effort PENETRATION / ASPIRATION SCALE (SCORE) WITH VIDEOFLOROSCOPIC SCALE SCORE: Thin liquids via straw (single sip): 1 Thin liquids via straw (single sip): 3 Thin liquids via straw (single sip): 2 Thin liquids via straw (single sip): 1 Black Diamond thickened liquids via straw (single sip): 1 [place] Diamond thickened liquids via straw (single sip): 1 Pudding via spoon: 1 Regular textured cookie: 1 [place] Diamond thickened liquids via straw (single sip): 1 [place] thickened liquids via straw (single sip): 1 OBJECTIVE ASSESSMENT OF SWALLOW FUNCTION (QUANTITATIVE ? AGGREGATE): MODIFIED BARIUM SWALLOW IMPAIRMENT PROFILE (MBSImP) LABIAL SEAL: 1 (of 4) interlabial escape, no progression TONGUE CONTROL: 1 (of 3) lateral buccal cavity / floor of mouth BOLUS PREPARATION / MASTICATION: 1 (of 3) slow prolonged; complete recollection BOLUS TRANSPORT / LINGUAL MOTION: 3 (of 4) repetitive / disorganized motion ORAL RESIDUE: 2 (of 4) residue collection on oral structures INITIATION OF PHARYNGEAL SWALLOW: 1 (of 4) valleculae SOFT PALATE ELEVATION: 1 (of 4) trace column between soft palate & pharyngeal wall LARYNGEAL ELEVATION: 0 (of 3) complete superior movement / approximation ANTERIOR HYOID EXCURSION: 1 (of 2) partial movement EPIGLOTTIC MOVEMENT: 0 (of 2) complete inversion LARYNGEAL VESTIBULE CLOSURE: 1 (of 2) incomplete closure PHARYNGEAL STRIPPING WAVE: 1 (of 2) present / diminished PE SEGMENT OPENIN (of 3) partial distension / duration / obstruction TONGUE BASE RETRACTION: 2 (of 4) narrow column of contrast PHARYNGEAL RESIDUE: 2 (of 4) collection of residue ESOPHAGEAL BOLUS CLEARANCE: could not view BOLUS RESIDUE SCALE (BRS): 2 (of 6) residue in valleculae DYSPHAGIA SEVERITY RATING SCALE (DSRS): 3 (mild-moderate) SWALLOWING PERFORMANCE SCALE (SPS): 4 (mild to moderate) OBJECTIVE ASSESSMENT OF SWALLOW FUNCTION (QUALITATIVE): ORAL PREPARATORY PHASE: mild (albeit effective) mastication inefficiency with prolonged mastication; overall sufficient anterior oral containment. ORAL TRANSITIONAL PHASE: discoordinated lingual movements (undulations) with varying swallow onset delay (2-3 seconds in length); suboptimal oral clearance without side specific consolidation; sufficient oral containment across textures; PHARYNGEAL PHASE: mild pharyngeal phase delay / dyssynchrony with variations in bolus dwell time (1-3 seconds); mild reduction in hyolaryngeal excursion and duration with inconsistent laryngeal vestibule pressure generated to completely expel penetrated material; mild pharyngeal dysmotility; mild velopharyngeal insufficiency without nasoregurgitation ESOPHAGEAL PHASE: no obvious esophageal phase abnormalities observed. CONTRIBUTING / COMPLICATING FACTORS AND NOTABLE FINDINGS: weak cued volitional cough intensity generated to expel penetrated material (dystussia); severe kyphosis very likely impacting swallow function, with a much higher risk of pre-prandial and prandial penetration and subsequent aspiration with any variations in pharyngeal bolus dwell time; kyphosis mimicking typically successful intake strategies associated with Parkinson?s and oropharyngeal onset timing, though did little to assist the Patient this date; kyphosis and positioning very likely playing a role in regards to intake tolerance, with suboptimal positioning / ingestion in reclined positioning / intake in bed increasing the risk of aspiration and concomitant aspiration related pulmonary complications; mild calcification along the anterior vocal fold, did not significantly impact image quality. RESPONSE TO STRATEGIES: all deficits managed successfully with reduction in bolus rate / volume adjustments, and diet texture / viscosity adjustments; required use of straws during liquid ingestion due to positional / extremity control effects associated with Parkinson?s disease. RECOMMENDATIONS AND CONSIDERATIONS: No aspiration appreciated throughout trials, unable to definitively rule out silent aspiration. Would caution advancement past nectar thickened liquids without completion of a repeat modified barium swallow study due to the higher risk of silent aspiration associated with the Patients medical diagnosis highly correlated with silent aspiration (Parkinson?s disease) paired with dystussia and diurnal sialorrhea. Would consider annual repeat objective assessment of the oropharyngeal swallow function under fluoroscopy to identify changes in the oropharyngeal swallow function associated with Parkinson?s disease due to the progressive nature of the disease and higher proclivity for silent aspiration. The Patient requires continued skilled speech-language intervention targeting diet texture management and training / implementation of recommended compensatory strategies; training and implementation of recommended oropharyngeal strengthening exercises to facilitate improved oropharyngeal strength and coordination; Patient and caregiver education regarding dysphagia associated with Parkinson?s disease; and Patient / caregiver training targeting meal preparation / thickened liquid preparation if unable to advance to baseline diet textures prior to discharge. The Patient would additionally benefit from further skilled speech-language intervention targeting hypokinetic dysarthria via training and implementation of the [facility] Voice Therapy (LSVT) method at the next level of care. DIET TEXTURE RECOMMENDATIONS: Will recommend a mechanical soft textured (IDDSI: 5), nectar thickened liquid (IDDSI: 2) diet RECOMMENDED COMPENSATORY STRATEGIES: Direct supervision with assistance as needed, reduced bolus volume / rate of ingestion, straws with all liquids, seated upright at 90 degrees during PO intake, remain upright for 30-60 minutes post meal (GERD precaution), medications one at a time with purees. IMAGE COUNT: 1945 Rome Corbin M.A., CCC-GRADE SETTER MBSImP Certified, LSVT Certified [facility] Speech-Language Pathology Department [email or web address]
--- NOTE | 2019-04-27 14:50 | RAD_ITS ---
STUDY: SWALLOWING STUDY REASON FOR EXAM: Male, 78 years old. Dysphagia. TECHNIQUE: The examination was performed with Speech Pathology in attendance. Under fluoroscopic observation, the patient ingested thin barium, thick barium, barium pudding, and barium coated cracker. FLUOROSCOPY TIME: 2:06 minutes/seconds. 1945 images were obtained. RADIOLOGIST INVOLVEMENT: Radiologist was present and providing direct supervision. COMPARISON: None. FINDINGS: The following was observed during swallowing of the various mixtures of barium: Thin Barium: Transient penetration with ingestion of thin liquids. Thick Barium: There was no evidence of aspiration or laryngeal penetration. Barium Pudding: There was no evidence of aspiration or laryngeal penetration. Barium Coated Cracker: There was no evidence of aspiration or laryngeal penetration. RAD/Swallowing Function w/Video IMPRESSION: Transient penetration with ingestion of thin liquids. The swallow study findings were discussed with the patient by the speech pathologist at the conclusion of the examination. Please see speech pathology report for more information and recommendations. Electronically Signed: Luke Beltran, at 15:37 EDT , Service support ,
--- NOTE | 2019-04-27 14:58 | CASEMGMT ---
Addendum entered by Mary Maher 04/27/19 16:48: SW didn't receive update from Heather at [facility]. Pt will have to be at [facility] until Thursday to confirm if pre-cert is still good Thursday or if pre-cert will need to be resubmitted. SW is leaving for the day and holiday is tomorrow so SW will not be available tomorrow. Original Note: Social Work Note SW met with pt and pt's Amberly Beal. SW updated Amberly Beal that insurance approval has been obtained but per physician pt is not medically cleared for discharge today. Amberly Beal states she hopes that pt is still at [facility] for a few days still. SW informed Amberly Beal that it is up to the physician when they would like pt to be discharged. Amberly Beal states understanding. SW received message from Heather at [facility] stating pre-cert was only good for yesterday (when it was obtained) and today and that she will need updated clinicals to fax to [employer] and if she hears from [employer] today then she should likely be able to expand the pre-cert being good for tomorrow. STEWART reviewed notes, no progress notes are available today but PT/OT notes are available. SW did fax updated PT/OT notes to Heather at [facility]. Plan: [facility] Mary Maher NURSE STAFF INDUSTRIAL, INTAKE COORDINATOR
[2019-04-27 15:20] VITALS: BP 130/72; PULSE 59; RESP 16; TEMP 36.7; O2SAT 94
--- NOTE | 2019-04-27 16:44 | PN_ITS ---
Subjective: Day #2 Zosyn All events of the past 24 hours of been reviewed. He has been afebrile since 8 PM on 04/25/2019. Vital signs are stable. He is 92 to 94% saturated on room air. Fluid balance is +2110 since admission. All lab was personally reviewed. White blood cell count today is 6.8 with a unremarkable differential. Hemoglobin is stable at 9.8 and platelets are 241,000. BMP is remarkable for a BUN of 20 and a creatinine of 1.40, up from 1.10 on 04/25/2019. He did receive 1 dose of Lasix yesterday for pleural effusions He had a modified barium swallow today and there was no aspiration appreciated but the speech therapist was unable to definitively rule out silent aspiration. He recommended a mechanical soft diet with nectar thick liquids. He also recommended direct supervision with assistance for eating. He should sit upright at 90 degrees while eating and use a straw for all liquids. Small bites. He should remain upright for 30 to 60 minutes following eating. Medication should be given with pur?es. He is more alert today although he remains confused. Cough is improving. Denies SOB today and is maintaining appropriate O@ saturation on RA. Objective: PHYSICAL EXAM: GENERAL: alert, oriented to person and knows he is in the hospital, Cooperative, NAD, mpre alert today than he has been the past 2 days ORAL: moist mucosa, no mucosal lesions NECK: No JVD, supple, trachea midline also sitting with his neck flexed and his chin close to his chest LUNGS: CTA, symmetric chest expansion, better air exchange today HEART: RRR, Normal S1 and S2, no rub, no gallop ABDOMEN: soft, NT, ND, BS present, no guarding with palpation EXTREMITIES: no edema, no cyanosis, no calf tenderness SKIN: No rashes, no breakdown NEUROLOGIC: no focal neurologic deficits PSYCH: appropriate, normal affect, pleasant, confused - Physical Exam Vital Signs Temp Pulse Resp BP Pulse Ox 98.1 F 57 L 16 128/70 H 93 04/27/19 09:20 04/27/19 09:20 04/27/19 09:20 04/27/19 09:20 04/27/19 09:20 Oxygen Delivery Method Room Air Weight: 175 lb 0.752 oz Body Mass Index (BMI) 25.1 Intake and Output for Last 24 Hours 0704/26/19 04/27/19 23:59 23:59 23:59 Intake Total 900 / 900 674 / 674 80 / 80 Output Total 1000 / 1000 1850 / 1850 600 / 600 Balance -100 / -100 -1176 / -1176 -520 / -520 Microbiology Past 72 Hours 04/21/19 20:16 Blood Culture - Final Blood Culture (Wb) - Anticubital Left No growth in 5 days. 04/21/19 20:17 Blood Culture - Final Blood Culture (Wb) - No Site/Description Given No growth in 5 days. Laboratory Tests Past 24 Hrs 04/27/19 04/27/19 06:39 06:39 WBC 6.8 RBC 3.22 L Hgb 9.8 L Hct 30.2 L MCV 93.8 MCH 30.4 MCHC 32.5 RDW 13.5 RDW Differential 44.3 H Plt Count 241 MPV 10.9 Immature Gran % (Auto) 0.400 Neut % (Auto) 58.4 Lymph % (Auto) 20.1 [place] % (Auto) 17.5 H Eos % (Auto) 3.3 Baso % (Auto) 0.3 Absolute Neuts (auto) 4.0 Absolute Lymphs (auto) 1.36 Total Counted Not Reportable Sodium 138 Potassium 4.3 Chloride 103 Carbon Dioxide 27.0 Anion Gap 8 BUN 20 H Creatinine 1.40 H Estim Creat Clear Calc 44.90 Est GFR (MDRD) Af Amer 63 Est GFR (MDRD) Non-Af 52 L BUN/Creatinine Ratio 14.3 Glucose 89 Calcium 8.7 Phosphorus 3.8 Magnesium 2.0 Medical Necessity - Tobacco Use Smoking Status: Former smoker Assessment/Plan Day #2 Zosyn Impressions 1. Acute complicated urinary tract infection in a patient with a chronic indwelling Flores catheter-present at admission 2. Dementia 3. Chronic indwelling Flores catheter 4. Paroxysmal atrial fibrillation 5. Chronic renal failure stage III 6. History of bladder cancer and BPH - was in hospice but, this was revoked at admission 7. generalized weakness and disability with inability to follow more than 1 step commands and reuiring max assist of 2 to go from sitting to standing 8. Parkinson's disease versus parkinsonism secondary to dementia 9. Normochromic normocytic anemia with a normal RDW 10. Hospital-acquired pneumonia-suspect aspiration Continue Zosyn Repeat PA and lateral chest x-ray in the a.m. If the PNA is improving may be able to send him to SNF Mechanical soft diet with nectar thick liquids and medications and pur?es Will need PT/OT/ST at care home Code Visit Inpatient E&M: 05646 Subs Hosp L2
[2019-04-27] MEDS: Amiodarone 200 MG Tablet PO (18:28)
[2019-04-27] MEDS: Finasteride 5 MG Tablet PO (18:28)
[2019-04-27] MEDS: Pantoprazole Sodium 40 MG Tablet PO (18:28)
[2019-04-27] MEDS: Pramipexole Di-HCl 0.25 MG Tablet PO ×2 (18:28→21:36)
[2019-04-27] MEDS: METHENAMINE HIPPURATE 1 GM TABLET PO (18:33)
[2019-04-27] MEDS: Carbidopa/Levodopa 25/100 Tablet PO (18:33)
[2019-04-27 21:23] VITALS: BP 108/72; PULSE 64; RESP 22; TEMP 36.9; O2SAT 95
[2019-04-27] MEDS: MELATONIN 3 MG TABLET PO (21:36)
[2019-04-27] MEDS: traZODone 50 MG Tablet PO (21:36)
[2019-04-28 04:20] VITALS: BP 133/90; PULSE 55; RESP 22; TEMP 36.8; O2SAT 95
--- NOTE | 2019-04-28 05:55 | RAD_ITS ---
STUDY: X-RAY CHEST REASON FOR EXAM: Male, 78 years old. Aspiration pneumonia. TECHNIQUE: PA and lateral chest, 4 views COMPARISON: 04/26/2019 FINDINGS: There is there is pulmonary hyperlucency and hyperinflation consistent with underlying COPD. Persistent right upper lobe and right lower lobe infiltrates have slightly improved compared to recent prior imaging, slightly less density, same distribution. Normal cardiomediastinal silhouette, jacquie and pleural margins. No acute osseous or upper abdominal process. RAD/Chest PA and Lateral IMPRESSION: Persistent but mildly improved right infiltrates. Electronically Signed: Julio Gannon MD at 10:06 EDT Tel , Service support ,
[2019-04-28] MEDS: Ipratropium Bromide 0.06% NASAL SPRAY 2 SPRAY NASAL ×3 (06:14→22:26)
[2019-04-28] MEDS: Carbidopa/Levodopa 25/100 Tablet PO ×3 (06:17→17:13)
[2019-04-28] MEDS: Heparin Injection (Vial) 5,000 UNIT/ML VIAL 5000 UNIT SC ×3 (06:28→22:36)
[2019-04-28 07:39] LABS: Anion Gap 10 (5-15); BUN 24 mg/dL (7-18); BUN/Creat Ratio 15.5 RATIO (10-20); Calcium,Total 8.8 mg/dL (8.5-10.1); Chloride 103 mmol/L (98-107); Creatinine, Serum 1.55 mg/dL (0.70-1.30); EST Glomerular Filtration Rate 46 mL/min (>60); Est Glom Filt Rate - Afr Amer 56 mL/min (>60); Estimated Creatinine Clearance 40.56 ml/min; Glucose 89 mg/dL (74-106); Potassium 3.8 mmol/L (3.5-5.1); Sodium Level 140 mmol/L (136-145)
[2019-04-28] MEDS: Amiodarone 200 MG Tablet PO (08:41)
[2019-04-28] MEDS: Pramipexole Di-HCl 0.25 MG Tablet PO ×2 (08:41→22:36)
[2019-04-28] MEDS: Finasteride 5 MG Tablet PO (08:41)
[2019-04-28] MEDS: Pantoprazole Sodium 40 MG Tablet PO (08:41)
[2019-04-28] MEDS: METHENAMINE HIPPURATE 1 GM TABLET PO (08:41)
[2019-04-28 10:20] VITALS: BP 135/70; PULSE 54; RESP 16; TEMP 36.8; O2SAT 98
[2019-04-28 16:20] VITALS: BP 125/76; PULSE 59; RESP 16; TEMP 36.7; O2SAT 97
--- NOTE | 2019-04-28 18:54 | PN_ITS ---
Subjective: Zosyn day #3 Afebrile Vital signs stable Pulse ox 95 to 98% on room air All lab was personally reviewed. Creatinine is up to 1.55 today but this is within his baseline. Still with poor oral intake Chest x-ray with persistent infiltration in the right but mildly improved and less consolidated Denies shortness of breath, nausea, abdominal pain, chest pain. States his cough is improving He ambulated 150 feet today with contact-guard assist of 2. He required less cueing than on prior days. Patient demonstrated festinating gait with approach to the floor transitions in color variation and floor activity tolerance is improving. - Physical Exam General: Alert, Cooperative, - - More focused today and able to converse more easily Oral: Dry Mucosa Neck: Supple Lungs: Clear to auscultation Cardiovascular: Regular rate, Regular Rhythm, Normal S1, Normal S2, No Gallop Abdomen: Bowel Sounds Present, Soft, Non Tender, Non-Distended Extremities: No edema Skin: No rashes Vital Signs Temp Pulse Resp BP Pulse Ox 98.0 F 59 L 16 125/76 H 97 04/28/19 16:20 04/28/19 16:20 04/28/19 16:20 04/28/19 16:20 04/28/19 16:20 Oxygen Delivery Method Room Air Weight: 175 lb 0.752 oz Body Mass Index (BMI) 25.1 Intake and Output for Last 24 Hours 04/26/19 04/27/19 04/28/19 23:59 23:59 23:59 Intake Total 674 / 674 471 / 471 75 / 75 Output Total 1850 / 1850 2049 / 2049 200 / 200 Balance -1176 / -1176 -1579 / -1579 -125 / -125 Microbiology Past 72 Hours 04/21/19 20:16 Blood Culture - Final Blood Culture (Wb) - Anticubital Left No growth in 5 days. 04/21/19 20:17 Blood Culture - Final Blood Culture (Wb) - No Site/Description Given No growth in 5 days. Laboratory Tests Past 24 Hrs 04/28/19 06:35 Sodium 140 Potassium 3.8 Chloride 103 Carbon Dioxide 27.0 Anion Gap 10 BUN 24 H Creatinine 1.55 H Estim Creat Clear Calc 40.56 Est GFR (MDRD) Af Amer 56 L Est GFR (MDRD) Non-Af 46 L BUN/Creatinine Ratio 15.5 Glucose 89 Calcium 8.8 Medical Necessity - Tobacco Use Smoking Status: Former smoker Assessment/Plan Day #3 Zosyn Impressions 1. Acute complicated urinary tract infection in a patient with a chronic indwelling Flores catheter-present at admission 2. Dementia 3. Chronic indwelling Flores catheter 4. Paroxysmal atrial fibrillation 5. Chronic renal failure stage III 6. History of bladder cancer and BPH - was in hospice but, this was revoked at admission 7. generalized weakness and disability -improving with PT/OT. Patient was able to ambulate 150 feet today with contact-guard assist x2. 8. Parkinson's disease versus parkinsonism secondary to dementia 9. Normochromic normocytic anemia with a normal RDW 10. Hospital-acquired pneumonia-suspect aspiration Continue Zosyn -transition to Augmentin at discharge Continue mechanical soft diet with nectar thick liquid Will need to get precertification again from the insurance company for transfer to [facility] Code Visit Inpatient E&M: [address] [facility] Hosp L1
[2019-04-28 22:20] VITALS: BP 145/78; PULSE 58; RESP 18; TEMP 36.5; O2SAT 99
[2019-04-28 22:30] VITALS: PULSE 58; RESP 18; O2SAT 98
[2019-04-28] MEDS: MELATONIN 3 MG TABLET PO (22:36)
[2019-04-28] MEDS: traZODone 50 MG Tablet PO (22:36)
[2019-04-29 03:32] VITALS: BP 149/91; PULSE 59; RESP 18; TEMP 36.9; O2SAT 96
[2019-04-29 03:42] VITALS: PULSE 59; RESP 18; O2SAT 96
[2019-04-29] MEDS: Carbidopa/Levodopa 25/100 Tablet PO ×3 (05:57→16:42)
[2019-04-29] MEDS: Ipratropium Bromide 0.06% NASAL SPRAY 2 SPRAY NASAL ×2 (05:57→13:23)
[2019-04-29] MEDS: Heparin Injection (Vial) 5,000 UNIT/ML VIAL 5000 UNIT SC ×2 (05:57→13:22)
[2019-04-29 09:30] VITALS: BP 98/54; PULSE 56; RESP 16; TEMP 36.4; O2SAT 95
--- NOTE | 2019-04-29 09:31 | CASEMGMT ---
Social Work Note SW received message from Heather at [facility] stating pre-cert is still good for today and pt is able to discharge today. Physician updated. Plan: If medically cleared [facility] today skilled Mary GREEN, CLINICAL SYSTEMS EDUCATOR
[2019-04-29] MEDS: Pantoprazole Sodium 40 MG Tablet PO (10:22)
[2019-04-29] MEDS: Pramipexole Di-HCl 0.25 MG Tablet PO (10:22)
[2019-04-29] MEDS: Finasteride 5 MG Tablet PO (10:22)
--- NOTE | 2019-04-29 13:03 | CASEMGMT ---
Addendum entered by Mary Maher 04/29/19 14:37: SW placed a call to [facility] and updated staff that pt will be discharged to [facility] today. Addendum entered by aMry Maher 04/29/19 14:17: Physician is discharging pt today. SW to fax discharge paperwork once completed. SW placed a call to Heather at [facility] and updated her that pt will be discharged today. Original Note: Social Work Note SW placed a call to Heather at [facility] and left message informing her that physician hasn't rounded on pt yet so this worker is unsure when pt will be discharged. SW to continue to follow. Plan: [facility] once medically cleared Mary Maher SYBASE DEVELOPER, BUSINESS PLANNING DIRECTOR
[2019-04-29] MEDS: METHENAMINE HIPPURATE 1 GM TABLET PO (13:22)
[2019-04-29] MEDS: Amiodarone 200 MG Tablet PO (13:22)
[2019-04-29 13:37] VITALS: BP 115/65; PULSE 57; RESP 18; TEMP 36.7; O2SAT 98
--- NOTE | 2019-04-29 15:05 | CASEMGMT ---
Addendum entered by Mary Maher 04/29/19 15:21: STEWART updated inspector subassemblies that once physician completes discharge paperwork, paperwork will need faxed to [facility]. Original Note: Social Work Note STEWART placed a call to [facility] and earliest pickup is 6:00pm, STEWART placed a call to [place] and earliest diamond picker they can do is 6:30-7:00pm. STEWART placed a call back to [facility] and arranged transportation via cot for 6:00pm. Transportation form on SNF folder and copy on pt's chart. STEWART placed a call to Heather at [facility] and left message regarding transportation time. STEWART updated RN, pt and pt's Amberly Beal on discharge and transportation time. Discharge paperwork will need to be faxed once completed by physician. Plan: Pt to discharge to [facility] skilled today with [facility] transporting via cot at 6:00pm Mary Maher MSW, FOOD AIDE
--- NOTE | 2019-04-29 15:59 | PCM.TXEXTCAR ---
- Diet 04/27/19 16:03 Diet: Regular Diet Food consistency:: Mechanical Soft/Ground Liquid Consistency:: Christopher Thick Type of Dietary Supplement:: Ensure Complete Is pt able to select menu?: No Diet Comments: Supervision; intake in chair only at 90 degrees; meds crushed in purees - Routine Orders/Code Status Enema Type: Fleetz Enema Frequency: Daily PRN Suppository Type: Dulcolax 10mg Suppository Frequency: Daily PRN O2 Liters per Minute: 1-2 O2 Frequency: PRN Keep PO Greater than or Equal to (%): 90 Routine Lab Work: [facility] - 05/02/19 - Therapies Physical Therapy: Eval and Treat Occupational Therapy: Eval and Treat Speech Therapy: Eval and Treat - Problem/Diagnosis (1) UTI (urinary tract infection) due to urinary indwelling Flores catheter Status: Acute Current Visit: Yes (2) Dementia Status: Chronic Current Visit: Yes (3) Aspiration pneumonia Status: Acute Current Visit: Yes (4) Normochromic normocytic anemia Status: Chronic Current Visit: Yes (5) Paroxysmal atrial fibrillation Status: Chronic Current Visit: Yes (6) Generalized weakness Status: Acute Current Visit: Yes (7) BPH (benign prostatic hyperplasia) Status: Chronic Current Visit: No (8) Bladder cancer Status: Chronic Current Visit: No (9) CKD (chronic kidney disease) stage 3, GFR 30-59 ml/min Status: Chronic Current Visit: No (10) Parkinsons disease Status: Chronic Comment: vs Parkinsonism due to dementia Current Visit: No (11) S/P TURP Status: Chronic Current Visit: No (12) Single kidney Status: Chronic Current Visit: No (13) Ureteral cancer Status: Chronic Current Visit: No - Allergies/Procedures Done in Hospital Allergies/Adverse Reactions: Allergies oxycodone [From Percocet] Adverse Reaction (Verified 04/21/19 17:44) hallucination, increased confusion, per family Procedures: - - Modified barium swallow-transient penetration with ingestion of thin liquids - Type of Care/Length of Stay Estimated LOS: Convalescent Care Less Than 30 days Type of Care Needed: Skilled Rehab Potential: Fair Prognosis: Fair - Additional Orders/Day of Discharge Additional Orders: He is not drinking enough fluids and appetite is poor.....I have had to give him IV fluids intermittently. His mentation and walking ability are increasing with treatment of the infection but intake remains poor. He is being started on Remeron at [place] and hopefully this will help. H&P will serve as current which was dated: 04/21/19 Day of Discharge: 04/29/19 - Dietary and Speech Recommendations Dietitian Recommendations/Changes: Will 240 cc ensure enlive w/ meals - in carton for ease of drinking from - and d/c ONS medpass - Follow Up Care Primary Care Physician: Sherwin Jorgensen MD [Primary Care Provider] - Please follow up with your Primary Care Physician in: Following discharge from [facility]
--- NOTE | 2019-04-29 16:35 | PCM.DC.SUM ---
Discharge Date and Diagnosis - Problem List Patient Problems: Active and Suspected Problems UTI (urinary tract infection) due to urinary indwelling Flores catheter (Acute) Aspiration pneumonia (Acute) Generalized weakness (Acute) Date of Admission: 04/21/19 Date of Discharge: 04/29/19 - Primary Discharge Diagnosis Active and Suspected Problems UTI (urinary tract infection) due to urinary indwelling Flores catheter (Acute) secondary to pseudomonas aeruginosa and Morganella morganii Aspiration pneumonia (Acute) Generalized weakness (Acute) - Secondary Discharge Diagnosis Chronic Problems Dementia (Chronic) Normochromic normocytic anemia (Chronic) Paroxysmal atrial fibrillation (Chronic) CKD (chronic kidney disease) stage 3, GFR 30-59 ml/min (Chronic) BPH (benign prostatic hyperplasia) (Chronic) S/P TURP (Chronic) Bladder cancer (Chronic) Ureteral cancer (Chronic) Single kidney (Chronic) Parkinsons disease (Chronic) Hospital Course and Treatment Imaging Results: Clinical Impression(s) from Imaging Studies Chest X-Ray 04/21/19 21:04 IMPRESSION: Right pulmonary infiltrates. Electronically Signed: Ever Ma DO at 21:55 EDT Tel [phone], Service support , Chest X-Ray 04/22/19 11:20 IMPRESSION: Linear atelectasis right base with blunting of the costophrenic angle posteriorly. Electronically Signed: Elvie Davies at 12:22 EDT Tel , Service support , Chest X-Ray 04/26/19 07:42 IMPRESSION: New right midlung pneumonia and new right pleural fluid when compared to 04/22/2019. Electronically Signed: Terrell Carroll MD at 11:07 EDT , Service support , Videofluoroscopic Swallow 04/27/19 14:50 IMPRESSION: Transient penetration with ingestion of thin liquids. The swallow study findings were discussed with the patient by the speech pathologist at the conclusion of the examination. Please see speech pathology report for more information and recommendations. Electronically Signed: Luke Devin, at 15:37 EDT , Service support , Chest X-Ray 04/28/19 05:55 IMPRESSION: Persistent but mildly improved right infiltrates. Electronically Signed: Julio Gannon MD at 10:06 EDT Tel , Service support , Microbiology 04/21/19 20:16 Blood Culture (Wb) - Anticubital Left Blood Culture - Final No growth in 5 days. 04/21/19 20:17 Blood Culture (Wb) - No Site/Description Given Blood Culture - Final No growth in 5 days. 04/21/19 18:30 Urine Catheter - Catheter Urine Culture - Final Pseudomonas aeroginosa Morganella morganii sp morgani None Operations: None Procedures: - - Modified barium swallow-transient penetration with thin liquids Summary of Care Provided: The patient is a 78-year-old male with a past medical history of Parkinson's disease, paroxysmal atrial fibrillation, chronic renal failure stage III, single kidney, bladder cancer (status post surgery), status post right ureteral stent placement, chronic Flores placement and history of recurrent UTIs who presented to the emergency room complaining of weakness and recurrent falls. He was diagnosed with a complicated urinary tract infection due to chronic indwelling Flores catheter secondary to pseudomonas aeruginosa and Morganella morganii. Both the Morganella and Pseudomonas were sensitive to fluoroquinolones. He was treated with Levaquin. He was seen by PT/OT and was very weak and initially unable to ambulate without 2 person assist and he required frequent cuing. On 04/25 he began c/o a cough but, his lungs were CTA and he was started on Atrovent nasal spray for PND. Later in the day he had a fever of 100.4. CXR was obtained in the AM on 04/26 and revealed a RML PNA that was suspected to be due to silent aspiration. Levaquin was discontinued and he was started on Zosyn. ST was consulted and a modified Barium Swallow was done 04/27/19 and he had transient penetration with thin liquids. No aspiration was appreciated throughout the trials but the speech therapist could not definitively rule out silent aspiration. Patient was started on nectar thickened liquids and a mechanical soft diet. Continued skilled speech?language intervention targeting diet texture management and training/implementation of recommended compensatory strategies was recommended. Oral pharyngeal strengthening exercises to facilitate improved oral pharyngeal strength and coordination was also recommended. Direct supervision with assistance as needed, reduced bolus volume / rate of ingestion, straws with all liquids, seated upright at 90 degrees during PO intake, remain upright for 30-60 minutes post meal (GERD precaution), medications one at a time with purees. Mentation improved significantly after being on Zosyn a few days. His performance with PT also improved and prior to DC he ambulated 150' with CGA of 2 however, his performance waxes and wanes....and I think it has to do with the timing of the PT/OT with the Sinemet. His appetite and intake have not been good during his stay and He required IV fluids at times. His appetite on the day of DC has started to improve. 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 He is frustrated and has not been eating at home either. He is irritable at times. He was started on Remeron for suspected depressions and to stimulate appetite. He was discharged to [facility] on 04/29/19 and will need 5 more days of antibiotics. Augmentin has been prescribed. The Morganella is resistant to Augmentin but, he has already received 9 days of effective antibiotics for the tx of the UTI he was admitted with. General: Alert, Cooperative, much more conversant today and the speech is more fluent. He is asking appropriate questions. Did not do well with PT today and he kept freeZing Oral: Dry Mucosa Neck: Supple Lungs: Clear to auscultation Cardiovascular: Regular rate, Regular Rhythm, Normal S1, Normal S2, No Gallop Abdomen: Bowel Sounds Present, Soft, Non Tender, Non-Distended Extremities: No edema Skin: No rashes This note was generated with [employer] software. It may contain incorrect words, spelling, and punctuation that were not noted in checking the note before signing. Patient Problems: Active and Suspected Problems UTI (urinary tract infection) due to urinary indwelling Flores catheter (Acute) Aspiration pneumonia (Acute) Generalized weakness (Acute) - Physical Exam Vital Signs Temp Pulse Resp BP Pulse Ox 98.0 F 57 L 18 115/65 98 04/29/19 13:37 04/29/19 13:37 04/29/19 13:37 04/29/19 13:37 04/29/19 13:37 Oxygen Delivery Method Room Air Weight: 175 lb 0.752 oz Body Mass Index (BMI) 25.1 Intake and Output for Last 24 Hours 04/27/19 04/28/19 04/29/19 23:59 23:59 23:59 Intake Total 471 / 471 75 / 369 714 / 714 Output Total 2049 / 2049 200 / 750 1050 / 1050 Balance -1579 / -1579 -125 / -381 -336 / -336 Microbiology Past 72 Hours 04/21/19 20:16 Blood Culture - Final Blood Culture (Wb) - Anticubital Left No growth in 5 days. 04/21/19 20:17 Blood Culture - Final Blood Culture (Wb) - No Site/Description Given No growth in 5 days. Home Medications: Medications to take at Discharge Carbidopa/Levodopa [Sinemet Cr 25-100 Tablet] 2 each PO TID 02/04/14 Finasteride [Proscar] 5 mg PO DAILY 05/29/17 Melatonin 3 mg PO QHS 07/09/18 Multivitamin [Multiple Vitamins] 1 each PO DAILY 07/09/18 Ropinirole HCl 0.5 mg PO BID 10/29/18 traZODone [Desyrel] 50 mg PO QHS 10/29/18 Amiodarone HCl 200 mg PO DAILY 12/04/18 Pantoprazole Sodium [Protonix] 40 mg PO DAILY 12/04/18 Methenamine Hippurate [Hiprex] 1 gm PO DAILY 04/21/19 Amox/Clav 400mg/5ml Susp [Augmentin Suspension 400mg/5ml] 800 mg PO BIDCM #100 ml 04/29/19 Mirtazapine [Remeron] 15 mg PO QHS #1 tab 04/29/19 Senna/Docusate Sodium [Senokot-S] 2 tab PO BID PRN tab 04/29/19 Following Prescrptions Were Given to Patient: Amox/Clav 400mg/5ml Susp [Augmentin Suspension 400mg/5ml] 800 mg PO BIDCM #100 ml Mirtazapine [Remeron] 15 mg PO QHS #1 tab Primary Care Physician: Sherwin Jorgensen MD [Primary Care Provider] - Please follow up with your Primary Care Physician in: Following discharge from [facility] Disposition: Penitentiary facility - [facility] Minutes spent on discharge:: 40 Patient Condition:: Stable Medical Necessity - Tobacco Use Smoking Status: Former smoker Tobacco Use: Non-smoker Meaningful Use Info Meaningful Use Diagnoses (Choose all that apply): None applicable Code Visit Inpatient E&M: 18947 Disch Hosp
--- NOTE | 2019-04-29 17:21 | NURSING ---
Report called to [place] at [facility].
[2019-04-29 17:50] VITALS: BP 155/81; PULSE 62; RESP 16; TEMP 36.6; O2SAT 95
== END 2019-04-29 18:08 | disposition skilled nursing facility (03) | DRG 698 ==
LOC: ED 20:01 → MS3 20:21
PROVIDERS: Internal Medicine; Admitting Provider Hospitalist; Emergency Provider Emergency Medicine; Family Provider Internal Medicine; PCP Internal Medicine; Visit Provider Internal Medicine
DX: T83.511A Infection and inflammatory reaction due to indwelling urethral catheter, initial encounter (principal); J69.0 Pneumonitis due to inhalation of food and vomit; N30.00 Acute cystitis without hematuria; B96.89 Other specified bacterial agents as the cause of diseases classified elsewhere; N18.3 Chronic kidney disease, stage 3 (moderate); F02.80 Dementia in other diseases classified elsewhere, unspecified severity, without behavioral disturbance, psychotic disturbance, mood disturbance, and anxiety; G20 Parkinson's disease; B96.5 Pseudomonas (aeruginosa) (mallei) (pseudomallei) as the cause of diseases classified elsewhere; Z87.440 Personal history of urinary (tract) infections; D64.9 Anemia, unspecified; Y95 Nosocomial condition; I48.0 Paroxysmal atrial fibrillation; N40.0 Benign prostatic hyperplasia without lower urinary tract symptoms; Z85.51 Personal history of malignant neoplasm of bladder; Z87.891 Personal history of nicotine dependence
CPT/HCPCS: 36415; 71045; 71046; 74230; 80048; 81001; 82962; 83735; 84100; 85025; 87040; 87077; 87086; 87088; 87184; 87186; 92507; 92526; 92610; 92611; 93005; 97110; 97116; 97140; 97163; 97166; 97530; 97802; 99285; J7030; J7040; A4216; J0744; J1940

== ENCOUNTER 2019-08-22 12:39 | Emergency (ER) | payer SELFPAY ==
[2019-04-21 20:47] VITALS: BMI 25.1
[2019-08-22 12:41] VITALS: BP 119/80; PULSE 70; RESP 15; TEMP 36.5; O2SAT 98; BMI 24.3
--- NOTE | 2019-08-22 13:45 | EKG12_ITS ---
Test Reason : ILLNESS Blood Pressure : / mmHG Vent. Rate : 064 BPM Atrial Rate : 064 BPM P-R Int : 234 ms QRS Dur : 112 ms QT Int : 466 ms P-R-T Axes : 088 025 043 degrees QTc Int : 480 ms Sinus rhythm with 1st degree A-V block Prolonged QT Abnormal ECG Confirmed by KENDRICK THRASHER ([id number]), purchasing expeditor MAHAD ROSA ([id number]) on 08/29/2019 9:11:36 AM Referred By: ELVA Confirmed By:KENDRICK THRASHER
--- NOTE | 2019-08-22 13:46 | RAD_ITS ---
STUDY: X-RAY CHEST REASON FOR EXAM: Male, 79 years old. Hypotension. TECHNIQUE: Single AP portable view of the chest. COMPARISON: Comparison is made with prior study dated April 28, 2019. FINDINGS: EKG electrodes are seen. The lungs are clear and expanded. There is no demonstrated pleural abnormality. There is borderline cardiomegaly. Normal mediastinum and jacquie. Normal visualized pulmonary arteries. There is atherosclerotic calcification of the aortic arch with tortuosity. There are diffuse degenerative changes of the visualized thoracic spine. Normal visualized ribs, clavicles, and shoulders. There is no demonstrated abnormality of the visualized soft tissue structures of the upper abdomen. RAD/Chest 1 View (Portable) IMPRESSION: No acute abnormality is seen. Electronically Signed: Luke Beltran, at 14:30 EDT , Service support ,
--- NOTE | 2019-08-22 13:50 | ED.VIS.GEN ---
History of Present Illness Chief Complaint: Hypotension Informant: Patient, Family Onset: Today Current Severity: Mild Narrative: Patient has a history of Parkinson's disease, dementia, hospice chronic Flores catheter, was seen in the doctor's office today for routine visit his pressure was 70 over palp he was brought to the hospital for evaluation by family on instructions a physician The lives with him and his speech language pathologist he is not been ill in any way he has had no fever cough chest pain abdominal pain, his status is been very stable he is eating and drinking well, the urine outputs been normal, The way to the hospital he stopped and received a [employer] meal which he ate completely his current blood pressure is 120/80 and he has no complaints So does note that he has intermittent sharp stabbing chest pain for the last month but is not related to food or activity or exertion it comes and goes by itself last for a few minutes No history of CT PE or DVT he is currently having no symptoms of any kind Past Medical History - Allergies and Home Meds Allergies/Adverse Reactions: Allergies oxycodone [From Percocet] Adverse Reaction (Verified 08/22/19 12:42) hallucination, increased confusion, per family Primary Care Physician: Sherwin Jorgensen MD [Primary Care Provider] - Past Medical History: - Surgical History: TURP, - - Tonsillectomy, TURP with ureteral intervention and possible stent placement with unclear intervention for prior noted bladder and ureteral cancer, partial plate dental intervention. Smoking Status: Former smoker - Family History Maternal Family History: Reports: Heart Disease, Hypertension, Stroke Paternal Family History: Reports: Heart Disease, Hypertension Review of Systems ROS: - Fluids as above General: Reports: - - Includes as above. Denies: Chills, Fever, Sweats Eyes: Denies: Visual changes - bilaterally, Diplopia ENT: Denies: Rhinorrhea, Sore throat Cardiovascular: Reports: Chest pain. Denies: Palpitations Respiratory: Denies: Dyspnea, Cough, Dyspnea on exertion Gastrointestinal: Denies: Abdominal pain, Nausea, Vomiting, Diarrhea, Melena, Hematochezia Genitourinary: Denies: Dysuria, Hematuria, Frequency Musculoskeletal: Denies: Back pain, Extremity Pain Skin: Denies: Rash, Wounds Neurological: Denies: Headache, Weakness, Numbness Physical Exam Vital Signs/Narrative: Vital Signs Temp Pulse Resp BP Pulse Ox 08/22/19 12:41 97.7 F L 70 15 119/80 98 General: Well nourished, Well developed, No Acute Distress, - - He has no complaints his HEENT exam cardiovascular abdominal exam unremarkable he has a Flores catheter is draining urine he is awake answering questions the reports that his mental status baseline Head: Normocephalic, Atraumatic Eyes: Perrl, EOMI ENT: Moist mucous membranes, No rhinorrhea Neck: Supple, Nontender Cardiovascular: Regular rate, Regular rhythm, No murmurs Respiratory: No distress, CTA bilaterally, Chest nontender Abdomen: Soft, Nontender, Nondistended, Normal bowel sounds Back: Nontender, Normal Inspection Extremities: Nontender, No edema Skin: Normal color, No rash Neurological: Alert, Oriented x3, Cranial nerves II-XII grossly intact, Normal Strength, Normal Sensation Psychological: Normal affect, Normal Mood Diagnostic/Tx/Re-eval - Medical Decision Making In all the above will obtain screening labs only difference between current status and status in the office was he was able to eat a large [employer] meal The patient's EKG shows a rate of 64 sinus rhythm no acute injury passion, the chest x-ray and labs are all generally unremarkable, the UA is pending results on the chart in addition we sent a urine culture given his chronic Flores as UA will not identify acute process His vital signs remained stable he drank water here, staff, the hospice team was made aware of his visit to the ED by the physician's office and feel the patient can be managed with the hospice service and not the emergency department, the hospice team reports to staff that the patient has episodes of transient hypotension, I have asked the staff to have hospice services speak with the patient's about ongoing support processes available to her at this time no comfortable discharge home versus other management options hospice has for them His vital signs are unremarkable he has no complaints Home stable Final impression Transient hypotension resolved ED Disposition - Plan for ED Patient: Diagnosis: Dementia, Hypotension Instructions: HYPOTENSION, All Causes Referrals: Sherwin Jorgensen MD [Primary Care Provider] -
[2019-08-22 14:23] LABS: Absolute Neutrophil Count 4.9 X10^3/uL (2.0-7.7); Basophil# 0.03 X10^3/uL; Basophil% 0.4 % (0-1); Eosinophils% 2.8 % (0-5); Hematocrit 34.2 % (40-54); Hemoglobin 11.2 g/dL (13.0-16.5); Lymphocyte % 18.3 % (19-41); Mean Corp Hgb Conc 32.7 g/dL (32-36); Mean Corpuscular Hgb 31.6 pg (27.0-32.0); Mean Corpuscular Volume 96.6 fL (80-94); Mean Platelet Vol. 11.1 fl (6.2-12.0); Monocyte# 0.64 X10^3/uL; NRBC Flagged by Analyzer 0 % (0-5); Neutrophil # 4.91 X10^3/uL (2.7-7.7); Neutrophil % 69.2 % (47-70); Platelet Count 189 K/mm3 (150-450); RBC Distribution Width CV 14.2 % (11.6-14.6); RBC Distribution Width SD 50.5 fl (35.1-43.9); Red Blood Count 3.54 M/mm3 (4.6-6.2); White Blood Count 7.1 K/mm3 (4.4-11.0)
[2019-08-22 14:44] LABS: Anion Gap 4 (5-15); BUN 28 mg/dL (7-18); BUN/Creat Ratio 17.9 RATIO (10-20); Calcium,Total 8.8 mg/dL (8.5-10.1); Chloride 107 mmol/L (98-107); Creatinine, Serum 1.56 mg/dL (0.70-1.30); EST Glomerular Filtration Rate 46 mL/min (>60); Est Glom Filt Rate - Afr Amer 56 mL/min (>60); Estimated Creatinine Clearance 39.65 ml/min; Glucose 95 mg/dL (74-106); Potassium 5.1 mmol/L (3.5-5.1); Sodium Level 137 mmol/L (136-145)
[2019-08-22 14:48] LABS: Mucous, Urine 0 SEEN /hpf (<or=2+)
[2019-08-22 14:51] VITALS: BP 138/83; PULSE 65; RESP 17; O2SAT 98
[2019-08-22 14:51] LABS: Color, Urine Yellow (Yellow); Glucose, Dipstick Normal (Normal); Ketone-Dipstick 15 mg/dl (Negative); Leukocyte Esterase-Dipstick 500 /ul (Negative); Nitrite-Dipstick Negative (Negative); Occult Blood-Urine 50 /ul (Negative); Protein-Dipstick 30 mg/dl (Negative); Specific Gravity, Urine 1.025 (1.002-1.030); Urine Bilirubin Dipstick Negative (Negative); Urine Clarity Cloudy (Clear); Urine Urobilinogen 1 mg/dl (Normal)
[2019-08-22 15:08] LABS: Bacteria 3+ /hpf (None Seen); Calcium Oxalate Crystals Ur 1+ /hpf (<or=2+); Red Blood Cells-Urine 0-5 SEEN /hpf (0-5); Squamous Epithelial Cells - UA 5-10 SEEN /hpf (0-5); White Blood Cells 25-50 SEEN /hpf (0-5)
[2019-08-22 15:09] LABS: Hyaline Cast 10-25 SEEN /lpf (0-5)
== END 2019-08-22 15:36 | disposition home or self-care (01) ==
LOC: ED 13:44
PROVIDERS: Emergency Provider Emergency Medicine; Family Provider Internal Medicine; PCP Internal Medicine
DX: I95.9 Hypotension, unspecified (principal); F03.90 Unspecified dementia, unspecified severity, without behavioral disturbance, psychotic disturbance, mood disturbance, and anxiety; Z87.891 Personal history of nicotine dependence; Z79.899 Other long term (current) drug therapy
CPT/HCPCS: 71045; 80048; 81001; 84484; 85025; 87077; 87086; 87088; 87186; 93005; 99284